=== PATIENT | male | born 1940 | race Caucasian/White ===

== ENCOUNTER 2021-09-25 12:04 | Emergency (ER) | payer OTHER ==
--- OUTSIDE RECORDS SUMMARY | 2021-09-25 12:07 | XMS REPORT | Continuity of Care Document ---
:1940 Author Organization [facility] t Address [address] [place] [address] Dr. Cardenas [address] [place] [id number] Care Team Providers Name Role Phone MARIA ISABEL Primary Care Physician Unavailable Kyle LERNER K Attending Clinician Unavailable Joselyn Unger MD Attending Clinician Joselyn UNGER Attending Clinician Unavailable Mary Wright PTA Attending Clinician Unavailable Avtar Acuña PT Attending Clinician Unavailable Linda MCKINLEY, Desmond Attending Clinician Willy Le MD Attending Clinician Willy LE Attending Clinician Unavailable MARIA EUGENIA SALAZAR MEDICAL Attending Clinician Unavailable Payers Payer Name Policy Type Policy Number Effective Date Expiration Date S ource MEDICARE-PART B 5 [id number] 2020 00:00:00 Problems Condition Condition Condition Status Onset Resolution Last Treating Co mments Source Name Details Category Date Date Treatment Clinician Date No known No known Disease NPI:1 83 active active [id number] problems problems Allergies, Adverse Reactions, Alerts Allergy Allergy Status Severity Reaction(s) Onset Inactive Treating Comm ents Source Name Type Date Date Clinician NO KNOWN Drug Active NPI:183 ALLERGIE Class [id number] S Social History Social Habit Start Date Stop Date Quantity Comments Source Exposure to 2021-07-18 2021-08-17 Not sure NPI:[id number] 1 SARS-CoV-2 00:00:00 11:01:00 (event) Alcohol intake 2021-08-17 2021-08-17 Current drinker NPI:1 [id number] 00:00:00 00:00:00 of alcohol (finding) Tobacco use and 2018-03-11 2018-03-11 Never used NPI:[id number] exposure 00:00:00 00:00:00 Sex [birth year] NPI:[id number] 00:00:00 00:00:00 Smoking Status Start Date Stop Date Source Never smoker Medications Ordered Filled Start Stop Current Ordering Indication Dosage Frequency Signature Comments Components Source Medication Medication Date Date Medication? Clinician (SIG) Name Name CARBIDOPA-L Yes [id number] 1{tbl} TAKE 1 NPI:183 EVODOPA 4-21 TABLET BY [id number] 25-250 mg 00:00: MOUTH 3 per tablet 00 (THREE) TIMES DAILY. CARBIDOPA-L 0 Yes [id number] 1{tbl} TAKE 1 NPI:183 EVODOPA 4-21 TABLET BY [id number] 25-250 mg 00:00: MOUTH 3 per tablet 00 (THREE) TIMES DAILY. CARBIDOPA-L Yes [id number] 1{tbl} TAKE 1 NPI:183 EVODOPA 4-21 TABLET BY [id number] 25-250 mg 00:00: MOUTH 3 per tablet 00 (THREE) TIMES DAILY. CARBIDOPA-L 0 Yes [id number] 1{tbl} TAKE 1 NPI:183 EVODOPA 4-21 TABLET BY [id number] 25-250 mg 00:00: MOUTH 3 per tablet 00 (THREE) TIMES DAILY. omeprazole 2021- No 20mg Take 20 mg NPI:183 (PRILOSEC) 08-17 by mouth [id number] 20 mg 11:18: 00:00 daily. capsule 23 :00 LEVETIRACET 2021-0 Yes [id number] TAKE 1 NPI:183 AM 250 mg 1-18 [place] [id number] tablet 00:00: MOUTH 2 00 TIMES DAILY LEVETIRACET 2021-0 Yes [id number] TAKE 1 NPI:183 AM 250 mg 1-[place] [id number] 81 tablet 00:00: MOUTH 2 00 TIMES DAILY LEVETIRACET 2021-0 Yes [id number] TAKE 1 NPI:183 AM 250 mg 1-[place] [id number] 81 tablet 00:00: MOUTH 2 00 TIMES DAILY LEVETIRACET 2021-0 Yes [id number] TAKE 1 NPI:183 AM 250 mg 1-18 [place] [id number] 81 tablet 00:00: MOUTH 2 00 TIMES DAILY LEVETIRACET 2021-0 Yes [id number] TAKE 1 NPI:183 AM 250 mg 1-18 [place] [id number] tablet 00:00: MOUTH 2 00 TIMES DAILY clopidogreL 2020-05 Yes 75mg Take 1 NPI: 183 75 mg 2-29 tablet by [id number] tablet 00:00: mouth 00 daily. clopidogreL 2020-05 Yes 75mg Take 1 NPI: 183 75 mg 2-29 tablet by [id number] tablet 00:00: mouth 00 daily. clopidogreL 2020-05 Yes 75mg Take 1 NPI: 183 75 mg 2-29 tablet by [id number] tablet 00:00: mouth 00 daily. clopidogreL 2020-05 Yes 75mg Take 1 NPI: 183 75 mg 2-29 tablet by [id number] tablet 00:00: mouth 00 daily. clopidogreL 2020-05 Yes 75mg Take 1 NPI: 183 75 mg 2-29 tablet by [id number] tablet 00:00: mouth 00 daily. CARBIDOPA-L Yes [id number] 1{tbl} TAKE 1 NPI:183 EVODOPA 9-29 TABLET BY [id number] 25-250 mg 00:00: MOUTH 3 per tablet 00 (THREE) TIMES DAILY. CARBIDOPA-L 2021- No [id number] 1{tbl} TAKE 1 NPI:183 EVODOPA 9-29 04-21 TABLET BY [id number] 25-250 mg 00:00: 00:00 MOUTH 3 per tablet 00 :00 (THREE) TIMES DAILY. carbidopa-l 2019-05 Yes [id number] 1{tbl} Take 1 NPI:183 evodopa 2-18 tablet by [id number] (SINEMET) 00:00: mouth 3 25-100 mg 00 (three) tablet times daily. carbidopa-l 2019-05- No [id number] 1{tbl} Take 1 NPI:183 evodopa 2-18 04-21 tablet by [id number] (SINEMET) 00:00: 00:00 mouth 3 25-100 mg 00 :00 (three) tablet times daily. atorvastati 2020-0 Yes 40mg Take 40 mg NPI:183 n 40 mg 8-04 by mouth [id number] tablet 08:39: at 22 bedtime. atorvastati 2020-0 Yes 40mg Take 40 mg NPI:183 n 40 mg 8-04 by mouth [id number] tablet 08:39: at 22 bedtime. atorvastati 2020-0 Yes 40mg Take 40 mg NPI:183 n 40 mg 8-04 by mouth [id number] tablet 08:39: at 22 bedtime. atorvastati 2020-0 Yes 40mg Take 40 mg NPI:183 n 40 mg 8-04 by mouth [id number] tablet 08:39: at 22 bedtime. atorvastati 2020-0 Yes 40mg Take 40 mg NPI:183 n 40 mg 8-04 by mouth [id number] tablet 08:39: at 22 bedtime. hydroCHLORO 2020-0 Yes NPI:18 3 thiazide 6- [id number] 12.5 mg 00:00: tablet 00 escitalopra 2020-0 Yes NPI:18 3 m oxalate 6- [id number] 10 mg 00:00: tablet 00 hydroCHLORO 2020-0 Yes NPI:18 3 thiazide 6- [id number] 12.5 mg 00:00: tablet 00 escitalopra 2020-0 Yes NPI:18 3 m oxalate 6- [id number] 10 mg 00:00: tablet 00 hydroCHLORO 2020-0 Yes NPI:18 3 thiazide 6- [id number] 12.5 mg 00:00: tablet 00 escitalopra 2020-0 Yes NPI:18 3 m oxalate 6- [id number] 10 mg 00:00: tablet 00 hydroCHLORO 2020-0 Yes NPI:18 3 thiazide 6- [id number] 12.5 mg 00:00: tablet 00 escitalopra 2020-0 Yes NPI:18 3 m oxalate 6- [id number] 10 mg 00:00: tablet 00 hydroCHLORO 2020-0 Yes NPI:18 3 thiazide 6- [id number] 12.5 mg 00:00: tablet 00 escitalopra 2020-0 Yes NPI:18 3 m oxalate 6- [id number] 10 mg 00:00: tablet 00 ranitidine 2018-0 Yes NPI:183 150 mg 01-08 [id number] tablet 00:00: 00 ranitidine 2018-0 Yes NPI:183 150 mg 8-22 [id number] tablet 00:00: 00 ranitidine 2018-0 Yes NPI:183 150 mg 8-22 [id number] tablet 00:00: 00 ranitidine 2018-0 Yes NPI:183 150 mg 8- [id number] tablet 00:00: 00 ranitidine 2018-0 Yes NPI:183 150 mg 8-22 [id number] tablet 00:00: 00 losartan 50 2018-0 Yes NPI:18 3 mg tablet - [id number] 00:00: 00 losartan 50 2018-0 Yes NPI:18 3 mg tablet - [id number] 00:00: 00 losartan 50 2018-0 Yes NPI:18 3 mg tablet - [id number] 00:00: 00 losartan 50 2018-0 Yes NPI:18 3 mg tablet - [id number] 00:00: 00 losartan 50 2018-0 Yes NPI:18 3 mg tablet - [id number] 00:00: 00 Immunizations Ordered Immunization Filled Immunization Date Status Commen ts Source Name Name SARS-COV-2 COVID-19 2020-07-13 Completed NPI:1 [id number] MODERNA VACCINE 00:00:00 SARS-COV-2 COVID-19 2020-07-13 Completed NPI:1 [id number] MODERNA VACCINE 00:00:00 SARS-COV-2 COVID-19 2020-07-13 Completed NPI:1 [id number] MODERNA VACCINE 00:00:00 SARS-COV-2 COVID-19 2020-07-13 Completed NPI:1 [id number] MODERNA VACCINE 00:00:00 SARS-COV-2 COVID-19 2020-07-13 Completed NPI:1 [id number] MODERNA VACCINE 00:00:00 SARS-COV-2 COVID-19 2020-06-15 Completed NPI:1 [id number] MODERNA VACCINE 00:00:00 SARS-COV-2 COVID-19 2020-06-15 Completed NPI:1 [id number] MODERNA VACCINE 00:00:00 SARS-COV-2 COVID-19 2020-06-15 Completed NPI:1 [id number] MODERNA VACCINE 00:00:00 SARS-COV-2 COVID-19 2020-06-15 Completed NPI:1 [id number] MODERNA VACCINE 00:00:00 SARS-COV-2 COVID-19 2020-06-15 Completed NPI:1 [id number] MODERNA VACCINE 00:00:00 Vital Signs Vital Name Observation Time Observation Value Comments Source Systolic blood pressure 2021-08-17 16:10:00 147 mm[Hg] Diastolic blood 2021-08-17 16:10:00 91 mm[Hg] NPI:1 [id number] pressure Heart rate 2021-08-17 16:10:00 72 /min NPI:1831 [id number] Body temperature 2021-08-17 16:10:00 36.78 Juliana Body height 2021-08-17 16:10:00 182.9 cm NPI:1831 [id number] Body weight 2021-08-17 16:10:00 112.038 kg NPI:1831 [id number] BMI 2021-08-17 16:10:00 33.50 kg/m2 NPI:1831 [id number] Oxygen saturation in 2021-08-17 16:10:00 96 /min Arterial blood by Pulse oximetry Procedures This patient has no known procedures. Encounters Start End Encounter Admission Attending Care Care Encounter Source Date/Time Date/Time Type Type Clinicians Facility Department ID 2021-10-03 2021-10-03 Outpatient [facility] [id number] NPI:183 16:00:00 16:00:00 [id number] 2021-09-26 2021-09-26 Outpatient [facility] [id number] NPI:183 16:00:00 16:00:00 [id number] 2021-09-19 2021-09-19 Ancillary Pam Wright [facility] 1.2.840 .114 [id number] NPI:183 16:00:00 16:45:00 Visit Power Unger [id number] [place] 4.2.7.2.686 [facility] [id number] [place] [id number] BU[facility] 2021-09-19 2021-09-19 Outpatient [facility] [id number] NPI:183 16:00:00 16:00:00 [id number] 2021-09-19 2021-09-19 [facility] [id number] NPI:183 16:00:00 16:00:00 POWER [id number] 1 2021-09-12 2021-09-12 Ancillary Gia Wright [facility] 1.2.840. [id number] NPI:183 16:00:00 16:45:00 Visit Power Unger Joselyn PATRICIO [id number] [id number] [place] 4.2.7.2.686 [facility] [phone] N[place] [address] [facility] 2021-09-12 2021-09-12 Outpatient R [facility] [id number] NPI:183 16:00:00 16:00:00 [id number] 2021-09-12 2021-09-12 [facility] [id number] NPI:183 16:00:00 16:00:00 POWER [id number] 1 2021-09-07 2021-09-08 Ancillary Trinity Blandon [facility] 1 .2.840.114 [id number] NPI:183 15:15:00 16:17:25 Visit Power Unger Joselyn PATRICIO [id number] [place] [id number] [facility] [id number] [facility] [address] [facility] 2021-09-07 2021-09-07 Outpatient R [facility] [id number] NPI:183 15:15:00 15:15:00 [id number] 2021-09-06 2021-09-06 Refnayana Mckeon [facility] 1.2.840.114 [id number] NPI:183 00:00:00 00:00:00 Yemi PATRICIO [id number] [id number] [place] [id number] [facility] [phone] NAL [address] [facility] 2021-09-04 2021-09-04 Outpatient R [facility] [id number] NPI:183 15:15:00 15:15:00 [id number] 2021-09-04 2021-09-04 Outpatient R CONSUELO [facility] [id number] NPI:183 15:15:00 15:15:00 POWER [id number] 1 2021-08-17 2021-08-17 Office Fish Le [facility] 1.2.840.114 [id number] NPI:183 11:00:00 12:41:58 Visit [facility] [id number] [id number] [place] [id number] [address] [place] [phone] [place] [id number] OFF[facility] 2021-08-17 2021-08-17 Outpatient R FISH LE [facility] [id number] NPI:183 11:00:00 12:41:58 [id number] 2021-05-04 2021-05-04 Outpatient GROUP, MUNA TORRES [id number] [place] 00:00:00 00:00:00 MUNA benson 2019-12-22 2019-12-22 Office Linda [facility] 1.2.840.114 [id number] 08:21:33 09:53:26 Visit Yemi Patricio [id number] [place] 4.2.7.2.686 [facility] [phone] [facility] 092 Building Results This patient has no known results.
--- NOTE | 2021-09-25 14:15 | RAD REPORT ---
EXAM DESCRIPTION: CT - Spine Lumbar Wo Con - 09/25/2021 2:02 pm CLINICAL HISTORY: Radiculopathy. Low back pain, trauma COMPARISON: No comparisons TECHNIQUE: Axial noncontrast CT imaging of the lumbar spine was performed with coronal and sagittal re-formatted images. All CT scans are performed using dose optimization technique as appropriate and may include automated exposure control or mA/KV adjustment according to patient size. FINDINGS: Mild compression fracture is seen affecting the L1 vertebral body. Loss of vertebral body height is estimated at 15%. This is likely acute. Paraspinal tissues are normal in thickness. No paraspinal abscess or hematoma seen. Moderate lower lumbar degenerative changes are present. IMPRESSION: Mild osteoporotic L1 compression fracture is seen. This is likely acute. There is no significant canal compromise evident.
[2021-09-25] MEDS ORDERED: HYDROCODONE/APAP 10/325 TAB ONE (14:16)
--- NOTE | 2021-09-25 14:56 | RAD REPORT ---
EXAM DESCRIPTION: RAD - Ribs Right - 09/25/2021 2:50 pm CLINICAL HISTORY: Pain COMPARISON: Chest Pa And Lat (2 Views) dated 12/08/2018 FINDINGS: Mildly displaced right lateral ninth rib fracture is seen. No pneumothorax.
--- NOTE | 2021-09-25 15:17 | ER ---
Nurse's Notes [facility] Name: Bry Hanson Age: 81 yrs Sex: Male : 1940 Arrival Date: 09/25/2021 Time: 12:05 Bed 27 Private MD: Keegan Fernandez V Diagnosis: Fracture of one rib, right side;Wedge compression fracture of unspecified lumbar vertebra Presentation: 09/25 13:18 Chief complaint: Patient states: Recently I have been having dizzy spells - I see a ld1 neurologist in [place]. Pt states he was feeling better today and went to the park to go walking. Pt got too close to the edge of sidewalk, became dizzy and fell. Denies hitting head or LOC. C/O right sided rib pain \T\ back pain. Coronavirus screen: At this time, the client does not indicate any symptoms associated with coronavirus-19. Ebola Screen: No symptoms or risks identified at this time. Initial Sepsis Screen: Does the patient meet any 2 criteria? No. Patient's initial sepsis screen is negative. Does the patient have a suspected source of infection? No. Patient's initial sepsis screen is negative. Risk Assessment: Do you want to hurt yourself or someone else? Patient reports no desire to harm self or others. Onset of symptoms was September 25, 2021. 13:18 Method Of Arrival: Wheelchair ld1 13:18 Acuity: FABIO 3 ld1 Triage Assessment: 13:22 General: Appears in no apparent distress. comfortable, Behavior is calm, cooperative, ld1 appropriate for age. Pain: Complains of pain in back, diaphragm and right lateral anterior chest Pain does not radiate. Pain currently is 8 out of 10 on a pain scale. Quality of pain is described as throbbing. EENT: No signs and/or symptoms were reported regarding the EENT system. Neuro: Level of Consciousness is awake, alert, obeys commands, Oriented to person, place, time, situation. Neuro: Reports. Cardiovascular: Capillary refill < 3 seconds Patient's skin is warm and dry. Rhythm is sinus rhythm. Respiratory: Airway is patent Respiratory effort is even, unlabored, Respiratory pattern is regular, symmetrical. GI: Abdomen is flat, non-distended. : No signs and/or symptoms were reported regarding the genitourinary system. Derm: No signs and/or symptoms reported regarding the dermatologic system. Musculoskeletal: No signs and/or symptoms reported regarding the musculoskeletal system. Historical: - Allergies: 13:20 No Known Allergies; ld1 - PMHx: 13:20 CVA; Depression; Hyperlipidemia; Hypertension; Seizures; ld1 - PSHx: 13:20 None; ld1 - Immunization history:: Adult Immunizations up to date, Client reports receiving the 2nd dose of the Covid vaccine. - Social history:: Smoking status: Patient denies any tobacco usage or history of. Patient/guardian denies using alcohol. Screenin:23 Abuse screen: Denies threats or abuse. Denies injuries from another. Nutritional ld1 screening: No deficits noted. Tuberculosis screening: No symptoms or risk factors identified. Fall Risk None identified. Assessment: 13:23 Reassessment: Patient appears in no apparent distress at this time. See triage ld1 assessment. 14:42 Reassessment: Patient appears in no apparent distress at this time. Patient is alert, ld1 oriented x 3, equal unlabored respirations, skin warm/dry/pink. Patient states feeling better. Vital Signs: 13:18 BP 146 / 92; Pulse 73; Resp 18; Temp 98.6(TE); Pulse Ox 95% on R/A; Weight 97.52 kg; ld1 Height 6 ft. 0 in. (182.88 cm); Pain 8/10; 14:08 BP 135 / 74; Pulse 72; Resp 18; Pulse Ox 96% on R/A; ld1 15:27 BP 137 / 76; Pulse 79; Resp 18; Pulse Ox 97% on R/A; ld1 13:18 Body Mass Index 29.16 (97.52 kg, 182.88 cm) ld1 ED Course: 12:05 Patient arrived in ED. am2 12:05 Darwin Pedroza MD is Private Physician. am2 12:05 Darwin Pedroza MD is Private Physician. am2 12:05 Keegan Fernandez MD is Private Physician. am2 13:05 [facility]. jr8 13:05 Omega Bonilla MD is Attending Physician. jr8 13:07 Cinda Man RN is Primary Nurse. ld1 13:20 Triage completed. ld1 13:22 Arm band placed on right wrist. ld1 13:23 Patient has correct armband on for positive identification. Placed in gown. Bed in low ld1 position. Call light in reach. Side rails up X2. school bus monitor on. Pulse ox on. NIBP on. Door closed. Noise minimized. Warm blanket given. 13:23 No provider procedures requiring assistance completed. ld1 14:04 CT Lumbar Spine Wo Con In Process Unspecified. EDMS 14:52 XRAY Ribs RIGHT In Process Unspecified. EDMS 15:16 Keegan Fernandez MD is Referral Physician. jr8 15:28 Patient did not have IV access during this emergency room visit. ld1 Administered Medications: 14:16 Drug: [place] (HYDROcodone-acetaminophen) 10 mg-325 mg 1 tabs Route: PO; ld1 Outcome: 15:16 Discharge ordered by . jr8 15:28 Discharged to home via wheelchair, with family. ld1 15:28 Condition: stable 15:28 Discharge instructions given to patient, family, Instructed on discharge instructions, follow up and referral plans. medication usage, Demonstrated understanding of instructions, follow-up care, medications, Prescriptions given X 1. 15:45 Patient left the ED. ld1 Signatures: Dispatcher [employer] EDMS Fady Richards PA PA jr8 Melinda Barbour am2 Cinda Man, ZULEIMA RN ld1
--- NOTE | 2021-09-25 15:17 | EDPHYS ---
Physician Documentation [facility] Name: Bry Hanson Age: 81 yrs Sex: Male : 1940 Arrival Date: 09/25/2021 Time: 12:05 Bed 27 Private MD: Keegan Fernandez V ED Physician Omega Bonilla HPI: 09/25 13:36 This 81 yrs old Male presents to ER via Wheelchair with complaints of Fall Injury, rib jr8 pain, Low Back Pain. 13:36 Onset: The symptoms/episode began/occurred acutely, today. Severity of symptoms: At jr8 their worst the symptoms were moderate, in the emergency department the symptoms are unchanged. The patient has not experienced similar symptoms in the past. The patient has not recently seen a physician. This is a 81-year-old male patient currently being worked up for Parkinson-like symptoms by his neurologist that presented to the emergency room today after sustaining a fall from dizziness. Patient stated that he gets dizzy and off balance quite often which is why he is being worked up. Stated that he fell into a tree hurting his low back and right ribs. Denies hitting his head or neck. No loss conscious at that time. Patient denies any other symptoms other than right rib pain and low back pain at this time.. Historical: - Allergies: 13:20 No Known Allergies; ld1 - PMHx: 13:20 CVA; Depression; Hyperlipidemia; Hypertension; Seizures; ld1 - PSHx: 13:20 None; ld1 - Immunization history:: Adult Immunizations up to date, Client reports receiving the 2nd dose of the Covid vaccine. - Social history:: Smoking status: Patient denies any tobacco usage or history of. Patient/guardian denies using alcohol. ROS: 13:36 Eyes: Negative for injury, pain, redness, and discharge, ENT: Negative for injury, jr8 pain, and discharge, Neck: Negative for injury, pain, and swelling, Cardiovascular: Negative for chest pain, palpitations, and edema, Respiratory: Negative for shortness of breath, cough, wheezing, and pleuritic chest pain, Abdomen/GI: Negative for abdominal pain, nausea, vomiting, diarrhea, and constipation, MS/Extremity: Negative for injury and deformity, Skin: Negative for injury, rash, and discoloration, Neuro: Negative for headache, weakness, numbness, tingling, and seizure. 13:36 Back: Positive for pain at rest, pain with movement, Negative for decreased range of motion, radiated pain. Exam: 13:36 Constitutional: This is a well developed, well nourished patient who is awake, alert, jr8 and in no acute distress. Head/Face: Normocephalic, atraumatic. Eyes: Pupils equal round and reactive to light, extra-ocular motions intact. Lids and lashes normal. Conjunctiva and sclera are non-icteric and not injected. Cornea within normal limits. Periorbital areas with no swelling, redness, or edema. ENT: Nares patent. No nasal discharge, no septal abnormalities noted. Tympanic membranes are normal and external auditory canals are clear. Oropharynx with no redness, swelling, or masses, exudates, or evidence of obstruction, uvula midline. Mucous membranes moist. Neck: Trachea midline, no thyromegaly or masses palpated, and no cervical lymphadenopathy. Supple, full range of motion without nuchal rigidity, or vertebral point tenderness. No Meningismus. Cardiovascular: Regular rate and rhythm with a normal S1 and S2. No gallops, murmurs, or rubs. Normal PMI, no JVD. No pulse deficits. Respiratory: Lungs have equal breath sounds bilaterally, clear to auscultation and percussion. No rales, rhonchi or wheezes noted. No increased work of breathing, no retractions or nasal flaring. Abdomen/GI: Soft, non-tender, with normal bowel sounds. No distension or tympany. No guarding or rebound. No evidence of tenderness throughout. Skin: Warm, dry with normal turgor. Normal color with no rashes, no lesions, and no evidence of cellulitis. MS/ Extremity: Pulses equal, no cyanosis. Neurovascular intact. Full, normal range of motion. Neuro: Awake and alert, GCS 15, oriented to person, place, time, and situation. Cranial nerves II-XII grossly intact. Motor strength 5/5 in all extremities. Sensory grossly intact. 13:36 Chest/axilla: Inspection: normal, Palpation: tenderness, that is moderate, of the right lateral anterior chest, that totally reproduces the patient's complaints. 13:36 Back: pain, that is mild, of the lumbar area, ROM is painful, normal spinal alignment noted, CVA tenderness, is absent, vertebral tenderness, is appreciated at L3 and L4. Vital Signs: 13:18 BP 146 / 92; Pulse 73; Resp 18; Temp 98.6(TE); Pulse Ox 95% on R/A; Weight 97.52 kg; ld1 Height 6 ft. 0 in. (182.88 cm); Pain 8/10; 14:08 BP 135 / 74; Pulse 72; Resp 18; Pulse Ox 96% on R/A; ld1 15:27 BP 137 / 76; Pulse 79; Resp 18; Pulse Ox 97% on R/A; ld1 13:18 Body Mass Index 29.16 (97.52 kg, 182.88 cm) ld1 MDM: 13:10 Patient medically screened. duane 15:13 Data reviewed: vital signs, nurses notes, radiologic studies, CT scan, plain films. jr8 Data interpreted: Pulse oximetry: on room air is 96 %. Interpretation: normal. Counseling: I had a detailed discussion with the patient and/or guardian regarding: the historical points, exam findings, and any diagnostic results supporting the discharge/admit diagnosis, radiology results, the need for outpatient follow up, a orthopedic surgeon, to return to the emergency department if symptoms worsen or persist or if there are any questions or concerns that arise at home. ED course: Discussed with patient that he has a 15% compression fracture with osteoporosis signs. Recommended bone scan from his PCP to further look into this as he has been having frequent falls secondary to his neurologic condition. Also explained to him that he had a mild rib fracture of the ninth rib. Pain management can control this at this time and that he just needs to be extra careful for the time being. If you worsen or have any other symptoms to come back for further evaluation. Patient good with this at this time and will refer him to Ortho spine.. 09/25 13:23 Order name: XRAY Ribs RIGHT; Complete Time: 15:04 jr8 09/25 13:23 Order name: CT Lumbar Spine Wo Con; Complete Time: 14:31 jr8 Administered Medications: 14:16 Drug: [place] (HYDROcodone-acetaminophen) 10 mg-325 mg 1 tabs Route: PO; ld1 Disposition Summary: 09/25/21 15:16 Discharge Ordered Location: Home jr8 Problem: new jr8 Symptoms: have improved jr8 Condition: Stable jr8 Diagnosis - Fracture of one rib, right side jr8 - Wedge compression fracture of unspecified lumbar vertebra jr8 Followup: jr8 - With: Keegan Fernandez MD - When: 5 - 6 days - Reason: Recheck today's complaints, Continuance of care, Re-evaluation by your physician Discharge Instructions: - Discharge Summary Sheet jr8 - Spinal Compression Fracture jr8 - Rib Fracture jr8 Forms: - Medication Reconciliation Form jr8 - Thank You Letter jr8 - Antibiotic Education jr8 - Prescription Opioid Use jr8 Prescriptions: - Tylenol-Codeine #3 300 mg-30 mg Oral - take 2 tablet by ORAL route every 8 hours; 24 tablet; Refills: 0, Product jr8 Selection Permitted Signatures: Dispatcher [employer] EDMS Omega Bonilla MD MD cha Roszak, Josh, PA PA jr8 Cinda Man, RN RN ld1
[2021-09-25 17:19] VITALS: TEMP 98.6
[2021-09-25 17:22] VITALS: BP 137/76; O2SAT 97
== END 2021-09-25 15:45 | disposition home or self-care (01) ==
LOC: ER 12:04
DX: S32.000A Wedge compression fracture of unspecified lumbar vertebra, initial encounter for closed fracture (principal); S22.31XA Fracture of one rib, right side, initial encounter for closed fracture; W18.39XA Other fall on same level, initial encounter; I10 Essential (primary) hypertension; E78.5 Hyperlipidemia, unspecified; Z86.73 Personal history of transient ischemic attack (TIA), and cerebral infarction without residual deficits
CPT/HCPCS: 72131; 99284

== ENCOUNTER 2021-11-21 07:01 | Emergency (ER) | payer OTHER ==
--- NOTE | 2021-11-21 07:20 | ER ---
Nurse's Notes [facility] Name: Bry Hanson Age: 81 yrs Sex: Male : 1940 Arrival Date: 11/21/2021 Time: 07:03 Bed 7 Private MD: Diagnosis: Cellulitis of buttock Presentation: 11/21 07:05 Chief complaint: Patient states: redness pain to right fbuttick began x 2 weeks ago kl pain increasing. Coronavirus screen: Vaccine status: Patient reports receiving the 2nd dose of the covid vaccine. Ebola Screen: Patient negative for fever greater than or equal to 101.5 degrees Fahrenheit, and additional compatible Ebola Virus Disease symptoms. Initial Sepsis Screen: Does the patient meet any 2 criteria? No. Patient's initial sepsis screen is negative. Does the patient have a suspected source of infection? Yes: Skin breakdown/wound. Risk Assessment: Do you want to hurt yourself or someone else? Patient reports no desire to harm self or others. Onset of symptoms was November 06, 2021. 07:05 Method Of Arrival: EMS: [facility] 07:05 Acuity: FABIO 3 kl Triage Assessment: 07:08 General: Appears distressed, uncomfortable, well developed, well nourished, Behavior is kl calm, cooperative, appropriate for age. Pain: Complains of pain in coccyx and right lower back Pain currently is 8 out of 10 on a pain scale. EENT: No deficits noted. No signs and/or symptoms were reported regarding the EENT system. Neuro: No deficits noted. Cardiovascular: No deficits noted. Denies chest pain. Respiratory: No deficits noted. Airway is patent Trachea midline Respiratory effort is even, unlabored, Respiratory pattern is regular, symmetrical. GI: No deficits noted. No signs and/or symptoms were reported involving the gastrointestinal system. : No deficits noted. No signs and/or symptoms were reported regarding the genitourinary system. Derm: Skin temperature is hot redness to right buttock. Historical: - Allergies: 07:19 No Known Allergies; jl7 - Home Meds: 07:07 levadopa [Active]; BP med [Active]; kl - PMHx: 07:07 CVA; Depression; Hyperlipidemia; Hypertension; Seizures; parkinsons; kl - Immunization history:: Adult Immunizations up to date. - Social history:: Smoking status: Patient denies any tobacco usage or history of. Screenin:30 Abuse screen: Denies threats or abuse. Denies injuries from another. Nutritional jl7 screening: No deficits noted. Tuberculosis screening: No symptoms or risk factors identified. Fall Risk Ambulatory Aid- Furniture (30 pts.). Gait- Weak (10 pts.). Mental Status- Oriented to own ability (0 pts). Total Estes Fall Scale indicates Low Risk Score (25-44 pts). Fall prevention measures have been instituted. Side Rails Up X 2 Frequent Obs/Assesments occuring. Assessment: 07:20 General: Appears in no apparent distress. uncomfortable, Behavior is calm, cooperative, jl7 appropriate for age. Pain: Complains of pain in right gluteus olimpia Pain currently is 8 out of 10 on a pain scale. Neuro: Level of Consciousness is awake, alert, obeys commands, Oriented to person, place, time, situation. Cardiovascular: Patient's skin is warm and dry. Respiratory: Airway is patent Respiratory effort is even, unlabored, Respiratory pattern is regular, symmetrical. Derm: Skin is pink, warm \T\ dry. Abscess located on right gluteus olimpia is quarter sized, is red. Vital Signs: 07:05 BP 149 / 81; Pulse 78; Resp 20; Temp 98.3; Pulse Ox 97% on R/A; Pain 8/10; kl 07:30 BP 141 / 88; Pulse 75; Resp 15; Pulse Ox 97% ; jl7 ED Course: 07:03 Patient arrived in ED. eb 07:03 Noé Rojas DO is Attending Physician. ms3 07:07 Triage completed. kl 07:19 Ayush Melgar, ZULEIMA is Primary Nurse. jl7 07:30 Patient has correct armband on for positive identification. Bed in low position. Call jl7 light in reach. Side rails up X 1. 07:46 No provider procedures requiring assistance completed. Patient did not have IV access jl7 during this emergency room visit. 07:47 Arm band placed on right wrist. jl7 Administered Medications: 07:30 Drug: Doxycycline 100 mg Route: PO; jl7 07:43 Follow up: Response: Medication administered at discharge. jl7 07:30 Drug: KeFLEX (cephalexin) 500 mg Route: PO; jl7 07:43 Follow up: Response: Medication administered at discharge. jl7 Medication: 07:30 VIS not applicable for this client. jl7 Outcome: 07:19 Discharge ordered by . ms3 07:46 Discharged to home via wheelchair, with family. jl7 07:46 Condition: stable 07:46 Discharge instructions given to patient, Instructed on discharge instructions, follow up and referral plans. medication usage, Demonstrated understanding of instructions, follow-up care, medications, Prescriptions given X 2. 07:47 Patient left the ED. jl7 Signatures: Josey Stringer, RN Ayush Ortiz RN RN jl7 Ursula Harvey Marcus, DO ms3
[2021-11-21] MEDS ORDERED: DOXYCYCLINE 100 MG CAP PO ONE (07:36)
[2021-11-21] MEDS ORDERED: CEPHALEXIN 250 MG CAP ONE (07:36)
--- NOTE | 2021-11-21 07:48 | EDPHYS ---
Physician Documentation [facility] Name: Bry Hanson Age: 81 yrs Sex: Male : 1940 Arrival Date: 11/21/2021 Time: 07:03 Bed 7 Private MD: ED Physician Noé Rojas HPI: 11/21 07:21 This 81 yrs old Male presents to ER via EMS with complaints of Abscess. ms3 07:21 The patient presents with cellulitis of the buttocks. Description: The affected area is ms3 large, confluent, localized, erythematous, hot, swollen, tense, warm. Onset: The symptoms/episode began/occurred gradually, 2 week(s) ago. Possible cause(s): unknown. Associated signs and symptoms: Pertinent negatives: drainage, fever, nausea. Modifying factors: the symptoms are alleviated by nothing, the symptoms are aggravated by pressure. Severity of symptoms: At their worst the symptoms were moderate, in the emergency department the symptoms are unchanged. Historical: - Allergies: 07:19 No Known Allergies; jl7 - Home Meds: 07:07 levadopa [Active]; BP med [Active]; kl - PMHx: 07:07 CVA; Depression; Hyperlipidemia; Hypertension; Seizures; parkinsons; kl - Immunization history:: Adult Immunizations up to date. - Social history:: Smoking status: Patient denies any tobacco usage or history of. ROS: 07:21 Constitutional: Negative for fever, and chills. Neck: Negative for injury, pain, and ms3 swelling, Cardiovascular: Negative for chest pain, and palpitations. Respiratory: Negative for shortness of breath, cough, wheezing, and pleuritic chest pain, Abdomen/GI: Negative for abdominal pain, nausea, vomiting, diarrhea, and constipation, MS/Extremity: Negative for injury and deformity. 07:21 Skin: Positive for cellulitis. 07:21 All other systems are negative. Exam: 07:21 Constitutional: This is a well developed, well nourished patient who is awake, alert, ms3 and in no acute distress. Head/Face: Normocephalic, atraumatic. Chest/axilla: Normal chest wall appearance and motion. Nontender with no deformity. Cardiovascular: Regular rate and rhythm with a normal S1 and S2. No gallops, murmurs, or rubs. Normal PMI, no JVD. No pulse deficits. Respiratory: Lungs have equal breath sounds bilaterally, clear to auscultation and percussion. No rales, rhonchi or wheezes noted. No increased work of breathing, no retractions or nasal flaring. Abdomen/GI: Soft, non-tender, with normal bowel sounds. No distension or tympany. No guarding or rebound. No evidence of tenderness throughout. MS/ Extremity: Pulses equal, no cyanosis. Neurovascular intact. Full, normal range of motion. Psych: Awake, alert, with orientation to person, place and time. Behavior, mood, and affect are within normal limits. 07:21 Skin: cellulitis, that is moderate, on the buttocks. Vital Signs: 07:05 BP 149 / 81; Pulse 78; Resp 20; Temp 98.3; Pulse Ox 97% on R/A; Pain 8/10; kl 07:30 BP 141 / 88; Pulse 75; Resp 15; Pulse Ox 97% ; jl7 MDM: 07:13 Patient medically screened. ms3 07:21 Differential diagnosis: abscess, cellulitis. Data reviewed: vital signs, and as a ms3 result, I will discharge patient. Counseling: I had a detailed discussion with the patient and/or guardian regarding: the historical points, exam findings, and any diagnostic results supporting the discharge/admit diagnosis, the need for outpatient follow up, to return to the emergency department if symptoms worsen or persist or if there are any questions or concerns that arise at home. ED course: Bedside US does not show fluid collection at this time. Discussed Rx for abx with patient. Patient understands/ agrees with plan. All questions answered. Return precautions discussed to include worsening symptoms, or any other concerns.. Administered Medications: 07:30 Drug: Doxycycline 100 mg Route: PO; jl7 07:43 Follow up: Response: Medication administered at discharge. jl7 07:30 Drug: KeFLEX (cephalexin) 500 mg Route: PO; jl7 07:43 Follow up: Response: Medication administered at discharge. jl7 Disposition Summary: 11/21/21 07:19 Discharge Ordered Location: Home ms3 Condition: Stable ms3 Diagnosis - Cellulitis of buttock ms3 Followup: ms3 - With: Private Physician - When: 2 - 3 days - Reason: Recheck today's complaints, Re-evaluation by your physician Discharge Instructions: - Discharge Summary Sheet ms3 - Cellulitis, Adult ms3 Forms: - Medication Reconciliation Form ms3 - Thank You Letter ms3 - Antibiotic Education ms3 - Prescription Opioid Use ms3 Prescriptions: - Doxycycline Hyclate 100 mg Oral Tablet - take 1 tablet by ORAL route every 12 hours; 20 tablet; Refills: 0, Product ms3 Selection Permitted - Cephalexin 500 mg Oral Capsule - take 1 capsule by ORAL route every 6 hours for 10 days; 40 capsule; Refills: 0, ms3 Product Selection Permitted Signatures: Josey Stringer, RN Ayush Ortiz RN RN jl7 Noé Rojas DO DO ms3
[2021-11-21 08:06] VITALS: TEMP 98.3; O2SAT 97
[2021-11-21 08:08] VITALS: BP 141/88
== END 2021-11-21 07:47 | disposition home or self-care (01) ==
LOC: ER 07:01
DX: L03.317 Cellulitis of buttock (principal); I10 Essential (primary) hypertension; G20 Parkinson's disease
CPT/HCPCS: 99283

== ENCOUNTER 2021-11-22 10:00 | Inpatient (IN) | payer OTHER ==
[2021-11-22] MEDS ORDERED: HYDROMORPHONE HCL 1 MG/ML INJ IV PRN ×2 (14:38→18:16)
[2021-11-22] MEDS ORDERED: DIPHENHYDRAMINE 25 MG TAB/CAP PO PRN (15:00)
[2021-11-22] MEDS ORDERED: LOPERAMIDE HCL 2 MG CAPSULE PO PRN (15:00)
[2021-11-22] MEDS ORDERED: ONDANSETRON 4 MG (ODT) TAB PO PRN (15:00)
[2021-11-22] MEDS ORDERED: POLYETHYL GLY 3350 17 GM/DOSE PO PRN (15:00)
[2021-11-22] MEDS ORDERED: ONDANSETRON 4 MG/2 ML VIAL IV PRN (15:00)
[2021-11-22] MEDS ORDERED: ACETAMINOPHEN 325 MG TABLET PO PRN (15:00)
[2021-11-22] MEDS ORDERED: PNEUMOCOCCAL VACCINE 0.5 ML IMVAC ONE (15:00)
--- NOTE | 2021-11-22 15:59 | RAD REPORT ---
EXAM DESCRIPTION: RAD - Chest Pa And Lat (2 Views) - 11/22/2021 3:53 pm CLINICAL HISTORY: intractable back pain Chest pain. COMPARISON: Chest Pa And Lat (2 Views) dated 12/08/2018; Chest Single View dated 02/07/2018; Chest Sin gle View dated 11/26/2016; CHEST PA AND LAT 2 VIEW dated 06/02/2015 FINDINGS: The lungs are clear. The heart is upper limit of normal in size. No displaced fractures. M ild thoracic degenerative changes. IMPRESSION: No acute or concerning finding suspected.
--- NOTE | 2021-11-22 16:09 | RAD REPORT ---
EXAM DESCRIPTION: MRI - Lumbar Spine Wo Con- 11/22/2021 3:43 pm CLINICAL HISTORY: back pain Back pain, radiculopathy COMPARISON: Spine Lumbar Wo Con dated 09/25/2021 FINDINGS: Mild anterior wedge compression fracture affects the L1 vertebral body. There is elevated T2/IR signal indicating subacute time frame. No canal compromise. No aggressive marrow pattern is observed. The conus medullaris terminates at a normal level. No thickening of the cauda equina or clumping of n erve roots seen. L1-2 level: Mild facet hypertrophy. L2-3 level: Moderate posterior disc bulge with moderate facet and ligamentum flavum hypertrophy. Mode rate central canal narrowing. L3-4 level: Mild to moderate posterior disc bulge with moderate facet and ligamentum flavum hypertrop hy. Moderate central canal stenosis mild narrowing of both exit foramina. L4-5 level: Mild posterior disc bulge is seen asymmetric to the left. Moderate facet and ligamentum f lavum hypertrophy is seen. Narrowing of the lateral recesses bilaterally is noted. L5-S1 level: Mild posterior disc bulge is seen with [id number] facet hypertrophy. No significan t central canal stenosis. No significant exit foraminal stenosis. IMPRESSION: Subacute mild anterior wedge compression fracture of L1. Vertebral body height loss is e stimated at 15-20%. Moderate lower lumbar degenerative spondylosis as detailed.
[2021-11-22 16:22] LABS: Absolute Lymphocytes (CBC) 1.4 K/uL (0.7-4.9); Hematocrit 42.9 % (39.6-49.0); Lymphocytes % 13.3 % (15.3-44.8); MCV 91.9 fL (80-100); RBC Red Blood Cell Count 4.66 M/uL (4.33-5.43)
[2021-11-22 16:27] VITALS: BMI 32.9
[2021-11-22 16:30] LABS: Protime INR 1.19
[2021-11-22 16:50] LABS: Albumin 3.3 g/dL (3.4-5.0); Bilirubin Direct 0.2 mg/dL (0-0.2); Bilirubin Total 0.6 mg/dL (0.2-1.0); Magnesium 2.4 mg/dL (1.8-2.4); Phosphorus 3.1 mg/dL (2.5-4.9); Potassium 3.8 mmol/L (3.5-5.1); Protein, Total 7.1 g/dL (6.4-8.2); Thyroid Stimulating Hormone 1.61 uIU/mL (0.360-3.740)
[2021-11-22] MEDS: NACHLORIDE 0.45% 1,000 ML IV SCH (16:54)
[2021-11-22] MEDS: ENOXAPARIN 40 MG/0.4 ML SQ SCH (16:54)
[2021-11-22] MEDS ORDERED: POTASSIUM CL SA 10 MEQ TAB PO ONE (18:00)
[2021-11-22] MEDS: VANCOMYCIN 2 GM in NA CHLORIDE 0.9% 500 ML IVPB SCH (21:12)
--- NOTE | 2021-11-23 06:27 | P.HP ---
Certification for Inpatient Patient admitted to: Inpatient With expected LOS: >2 Midnights Practitioner: I am a practitioner with admitting privileges, knowledge of patient current condition, hospital course, and medical plan of care. Services: Services provided to patient in accordance with Admission requirements found in Title 42 Section 412.3 of the Code of Federal Regulations Patient History Date of Service: 11/22/21 Reason for admission: BACK PAIN, LARGE GLUTEAL ABSCESS History of Present Illness: DAUGHTER CAME TO OFFICE TELLING US THAT HE IS IN A LOT OF PAIN AND CAN'T GET OUT OF BED. THIS IS AFTER HE FELL AT DR. PALMER'S OFFICE. I SUSPECETD LUMBAR FRACTURE AND ADMITTED HIM. THERE IS A LARGE ARE OF PAIN AND REDNESS IN GLUTEAL REGION THAT HE OR SHE WERE NOT AWARE OF . HE DOES NOT TAKE SHOWER DAILY. Allergies No Known Allergies Allergy (Verified 11/22/21 14:38) Home medications list reviewed: Yes Home Medications: Atorvastatin Calcium [Lipitor] 40 mg PO BEDTIME 07/20/11 Omeprazole Magnesium [Prilosec Otc] 20 mg PO DAILY 07/20/11 Valsartan [Diovan] 160 mg PO DAILY 07/20/11 Clopidogrel Bisulfate [Plavix*] 75 mg PO DAILY #30 tablet 07/14/13 Losartan Potassium [Cozaar*] 50 mg PO DAILY 07/14/13 Carbidopa/Levodopa 25-250 [Sinemet 25-250*] 25 - 250 mg PO TID 11/22/21 Cephalexin [Keflex*] 500 mg PO Q6HR 11/22/21 Doxycycline Hyclate 100 mg PO BID 11/22/21 Levetiracetam [Keppra] 500 mg PO BID 11/22/21 Venlafaxine HCl [Venlafaxine HCl ER] 75 mg PO DAILY 11/22/21 - Past Medical/Surgical History Has patient received pneumonia vaccine in the past: Yes Diabetic: No -: htn -: seizures -: Parkinsons -: depression -: anxiety -: back fx -: concussions -: shoulder sx -: appendectomy -: foot sx - Social History Smoking Status: Never smoker Alcohol use: Yes CD- Drugs: No Caffeine use: Yes Place of Residence: Home Review of Systems 10-point ROS is otherwise unremarkable General: Weakness Musculoskeletal: As per HPI Physical Examination - Vital Signs Temperature: 97.1 F Blood Pressure: 146/62 Pulse: 75 Respirations: 17 Pulse Ox (%): 97 - Physical Exam General: Oriented x3, Severe distress HEENT: Atraumatic, PERRLA, Mucous membr. moist/pink, EOMI, Sclerae nonicteric Neck: Supple, 2+ carotid pulse no bruit, No LAD, Without JVD or thyroid abnormality Respiratory: Clear to auscultation bilaterally, Normal air movement Cardiovascular: Regular rate/rhythm, Normal S1 S2 Gastrointestinal: Normal bowel sounds, No tenderness Musculoskeletal: No tenderness Integumentary: No rashes, Other (LARGE GLUTEAL ABSCESS- MRSA CHARACTERS.) Neurological: Normal gait, Normal speech, Normal strength at 5/5 x4 extr, Normal tone, Normal affect Lymphatics: No axilla or inguinal lymphadenopathy - Studies Laboratory Data (last 24 hrs) 11/22/21 16:07: Sodium 140, Potassium 3.8, BUN 15, Creatinine 1.01, Glucose 98, Phosphorus 3.1, Magnesium 2.4, Total Bilirubin 0.6, AST 22, ALT 26, Alkaline Phosphatase 76 11/22/21 16:07: PT 13.1 H, INR 1.19, APTT 27.9 11/22/21 16:07: WBC 10.4, Hgb 14.4, Hct 42.9, Plt Count 232 Assessment and Plan - Problems (Diagnosis) (1) Abscess, gluteal, right Current Visit: Yes Status: Acute Plan: CONSULT DR. BELLA. IV VANCOMYCIN SURGERY IN AM. I COULD NOT DO THIS NOTE YESTERDAY [employer] DID NOT WORK. (2) Fx lumbar vertebra-closed Current Visit: Yes Status: Acute Plan: MEDICAL MANAGEMENT . HE CAN DO KYKPHOPLASTY BUT WITH A LARGE MRSA ABSCESS I WILL AVOID IT TO PREVENT SPINE INFECTION. Qualifiers: Encounter type: initial encounter Lumbar vertebra fracture level: L1 (3) Parkinson disease Current Visit: Yes Status: Acute - Advance Directives Does patient have a Living Will: No Does patient have a Durable POA for Healthcare: Yes
[2021-11-23] MEDS ORDERED: Ringers Lactate 1,000 ML IV ONE (06:48)
[2021-11-23 06:56] LABS: Absolute Lymphocytes (CBC) 0.9 K/uL (0.7-4.9); Lymphocytes % 10.6 % (15.3-44.8); MCV 91.7 fL (80-100); RBC Red Blood Cell Count 4.58 M/uL (4.33-5.43)
[2021-11-23] MEDS ORDERED: ONDANSETRON 4 MG/2 ML VIAL ONE (07:16)
[2021-11-23] MEDS ORDERED: propofoL 200 MG/20 ML VIAL IV ONE (07:16)
[2021-11-23] MEDS ORDERED: BUPIVACAINE 0.5% Inj,MDV 50 mL VIAL ONE (07:18)
[2021-11-23] MEDS ORDERED: CEFAZOLIN SODIUM 1 GM/VIAL ONE (07:23)
--- NOTE | 2021-11-23 07:26 | P.CNS ---
Date of Consult: 11/23/21 Reason for consult: Right buttock abscess History of present illness: 81-year-old gentleman presents with red painful, tender area on the right buttock for 2 weeks. Patient denies fever or chills. Patient states there is minimal discharge. Patient also has lower back pain. Patient had an MRI which shows a wedge fracture. Patient needs kyphoplasty; however, that we will have to wait until after the infection is taken care of. Patient denies sore throat, runny nose, headaches, dizziness, cough or chest pain. Review of systems: Otherwise unremarkable Past medical history: Hypertension, Parkinson's, depression Past surgical history: Shoulder surgery, appendectomy, foot surgery Allergies: None Social history: Does not smoke, drinks occasionally Family history: Noncontributory Vital signs: Stable, afebrile Physical exam: Awake alert oriented x3 Head and neck exam: No masses Chest: Clear Heart: S1-S2 Abdomen: Soft Extremity: Neurovascular intact, nontender Neuro: Nonfocal Right buttock: Approximately 10 x 15 cm diameter area of erythema, warmth, induration with central necrosis and fluctuance. There is minimal purulence oozing from the center. Diagnostic data: White count is normal with a left shift. MRI of the lumbar spine reviewed. Assessment: Abscess and cellulitis right buttocks in a patient with lumbar fracture Plan/recommendation: We will proceed with incision, drainage and debridement of the right buttock abscess. Patient understands risk benefits alternatives and agrees to procedure. Patient's back issue will be addressed after the infection is under control. CC: Dr. Fernandez's office
[2021-11-23] MEDS ORDERED: LIDOCAINE 2% MPF 5 ML VIAL ONE (07:40)
[2021-11-23] MEDS ORDERED: FENTANYL CITR 100 MCG/2 ML ONE (07:42)
[2021-11-23] MEDS ORDERED: EPHEDRINE SULF 50 MG/ML VIAL ONE (07:58)
--- NOTE | 2021-11-23 08:47 | P.OP ---
Date of Service: 11/23/21 Preop diagnosis: Abscess and cellulitis right buttocks Postop diagnosis: Same Procedure performed: Incision, drainage and debridement right buttock abscess Surgeon: Dain Menchaca MD Line Construction Superintendent: Emanuel ROSA Estimated blood loss: Minimal Specimen: Culture and sensitivity of the pus, necrotic tissue Findings: As above Anesthesia: General Complications: None Drains: None Fluids and blood products: Nonapplicable Disposition: Recovery room Operative note: Patient brought to the OR and placed in supine position. General anesthesia begun. Patient placed in left lateral position. Patient prepped and draped in the usual sterile fashion. Marcaine 0.5% infiltrated locally for postop pain control. 15 blade used to make approximately a 6 x 3 cm incision just around the necrotic area that was present. Subcutaneous tissue divided, pus encountered and cultures done. All the necrotic tissue was debrided down into the deep subcutaneous tissue. Patient had the beginnings of an early necrotizing infection. After all necrotic tissue was debrided, wound was irrigated and bleeding controlled with cautery. Then wet-to-dry normal saline dressing change applied. Patient awakened. Patient tolerated the procedure in stable condition taken to recovery room in good general condition. CC: Dr. Fernandez's office
[2021-11-23] MEDS ORDERED: CHLORHEXIDINE GLUCO 4% 120 ML TOP SCH (09:00)
[2021-11-23] MEDS: MUPIROCIN 2% OINT 22GM TUBE TOP SCH ×2 (09:00→21:00)
[2021-11-23] MEDS: ENOXAPARIN 40 MG/0.4 ML SQ SCH (09:00)
[2021-11-23] MEDS: HYDROMORPHONE HCL 1 MG/ML INJ ONE ×2 (09:20→09:28)
[2021-11-23] MEDS ORDERED: KETOROLAC 30 MG/ML INJ ONE (09:28)
[2021-11-23 09:57] LABS: Magnesium 2.2 mg/dL (1.8-2.4); Potassium 3.8 mmol/L (3.5-5.1)
[2021-11-23] MEDS ORDERED: POTASSIUM CL SA 10 MEQ TAB PO ONE (10:45)
--- NOTE | 2021-11-23 13:54 | EKG ---
Test Date: 2021-11-22 Test Time: 14:33:05 Seo Professional: JED MEASUREMENT RESULTS: Intervals: Rate: 68 AL: 188 QRSD: 78 QT: 396 QTc: 421 [place]: P: -53 AL: 188 QRS: 44 T: 31 INTERPRETIVE STATEMENTS: Unusual P axis, possible ectopic atrial rhythm Abnormal ECG Compared to ECG 02/07/2018 09:25:35 Sinus rhythm no longer present Ventricular premature complex(es) no longer present Electronically Signed On 11-23-21 13:51:13 CDT by Ti Copeland
[2021-11-23] MEDS: VANCOMYCIN 2 GM in NA CHLORIDE 0.9% 500 ML IVPB SCH (14:50)
[2021-11-24] MEDS: NACHLORIDE 0.45% 1,000 ML IV SCH (00:20)
[2021-11-24 06:20] LABS: Magnesium 2.4 mg/dL (1.8-2.4)
--- NOTE | 2021-11-24 06:49 | P.PN ---
Subjective Date of Service: 11/23/21 Chief Complaint: BACK PAIN, LARGE GLUTEAL ABSCESS GOING FOR SURGERY. DR. BELLA , I CALLED LATER, HE FOUND A LARGE ABSCESS THAT WAS DRAINED. Physical Examination - Vital Signs Temperature: 97.5 F Blood Pressure: 163/74 Pulse: 63 Respirations: 18 Pulse Ox (%): 97 - Physical Exam General: Oriented x3, Moderate distress HEENT: Atraumatic, PERRLA, EOMI Neck: Supple, JVD not distended Respiratory: Clear to auscultation bilaterally, Normal air movement Cardiovascular: Regular rate/rhythm, Normal S1 S2 Gastrointestinal: Normal bowel sounds, No tenderness Musculoskeletal: No tenderness Integumentary: No rashes Neurological: Normal speech, Normal tone, Normal affect Lymphatics: No axilla or inguinal lymphadenopathy - Studies Laboratory Data (last 24 hrs) 11/24/21 05:40: Sodium 141, Potassium 4.0, BUN 12, Creatinine 0.89, Glucose 97, Magnesium 2.4 11/23/21 09:23: Sodium 139, Potassium 3.8, BUN 12, Creatinine 1.01, Glucose 110 H, Magnesium 2.2 11/23/21 06:46: WBC 8.9 D, Hgb 14.3, Hct 42.0, Plt Count 187 Medications List Reviewed: Yes Assessment And Plan - Current Problems (Diagnosis) (1) Abscess, gluteal, right Current Visit: Yes Status: Acute Plan: CONSULT DR. BELLA. IV VANCOMYCIN SURGERY IN AM. I COULD NOT DO THIS NOTE YESTERDAY [employer] DID NOT WORK. TALKED TO DAUGHTER TO EXPLAIN IV ABX FOR 14 DAYS AT [place]. WOUND CARE BY DR. BELLA. (2) Fx lumbar vertebra-closed Current Visit: Yes Status: Acute Plan: MEDICAL MANAGEMENT . HE CAN DO KYKPHOPLASTY BUT WITH A LARGE MRSA ABSCESS I WILL AVOID IT TO PREVENT SPINE INFECTION. Qualifiers: Encounter type: initial encounter Lumbar vertebra fracture level: L1 (3) Parkinson disease Current Visit: Yes Status: Acute
[2021-11-24 06:51] LABS: Absolute Lymphocytes (CBC) 1.4 K/uL (0.7-4.9); Hematocrit 44.5 % (39.6-49.0); Lymphocytes % 21.2 % (15.3-44.8); MCV 92.2 fL (80-100); MPV 8.5 fL (7.6-11.3); RBC Red Blood Cell Count 4.83 M/uL (4.33-5.43)
[2021-11-24] MEDS: MUPIROCIN 2% OINT 22GM TUBE TOP SCH ×2 (09:00→21:00)
[2021-11-24] MEDS: VANCOMYCIN 2 GM in NA CHLORIDE 0.9% 500 ML IVPB SCH (09:08)
[2021-11-24] MEDS: ENOXAPARIN 40 MG/0.4 ML SQ SCH (09:09)
--- NOTE | 2021-11-24 13:48 | P.PN ---
Subjective Date of Service: 11/24/21 Chief Complaint: BACK PAIN, LARGE GLUTEAL ABSCESS Subjective: Improving GOING FOR SURGERY. DR. BELLA , I CALLED LATER, HE FOUND A LARGE ABSCESS THAT WAS DRAINED. Physical Examination - Vital Signs Temperature: 98.1 F Blood Pressure: 159/92 Pulse: 70 Respirations: 18 Pulse Ox (%): 96 - Physical Exam General: Oriented x3, Moderate distress, Obese HEENT: Atraumatic, PERRLA, EOMI Neck: Supple, JVD not distended Respiratory: Clear to auscultation bilaterally, Normal air movement Cardiovascular: Regular rate/rhythm, Normal S1 S2 Gastrointestinal: Normal bowel sounds, No tenderness Musculoskeletal: No tenderness Integumentary: No rashes Neurological: Normal speech, Normal tone, Normal affect Lymphatics: No axilla or inguinal lymphadenopathy - Studies Laboratory Data (last 24 hrs) 11/24/21 05:40: Sodium 141, Potassium 4.0, BUN 12, Creatinine 0.89, Glucose 97, Magnesium 2.4 11/24/21 05:40: WBC 6.5 D, Hgb 15.0, Hct 44.5, Plt Count 111 L D Microbiology Data (last 24 hrs): 11/23/21 08:10 Wound - Right Buttock Gram Stain - Final 11/23/21 08:10 Wound - Right Buttock Gram Stain - Final Medications List Reviewed: Yes Assessment And Plan - Current Problems (Diagnosis) (1) Abscess, gluteal, right Current Visit: Yes Status: Acute Plan: CONSULT DR. BELLA. IV VANCOMYCIN SURGERY IN AM. I COULD NOT DO THIS NOTE YESTERDAY [employer] DID NOT WORK. TALKED TO DAUGHTER TO EXPLAIN IV ABX FOR 14 DAYS AT [place]. WOUND CARE BY DR. BELLA. IV ABX PLANNED. [employer] HAS ALL ORDERS. (2) Fx lumbar vertebra-closed Current Visit: Yes Status: Acute Plan: MEDICAL MANAGEMENT . HE CAN DO KYKPHOPLASTY BUT WITH A LARGE MRSA ABSCESS I WILL AVOID IT TO PREVENT SPINE INFECTION. Qualifiers: Encounter type: initial encounter Lumbar vertebra fracture level: L1 (3) Parkinson disease Current Visit: Yes Status: Acute
[2021-11-25] MEDS: VANCOMYCIN 2 GM in NA CHLORIDE 0.9% 500 ML IVPB SCH ×2 (02:17→21:23)
[2021-11-25 06:23] LABS: Absolute Lymphocytes (CBC) 1.4 K/uL (0.7-4.9); Hematocrit 42.2 % (39.6-49.0); Lymphocytes % 22.6 % (15.3-44.8); MCV 91.6 fL (80-100); MPV 7.9 fL (7.6-11.3); RBC Red Blood Cell Count 4.61 M/uL (4.33-5.43)
[2021-11-25 06:44] LABS: Magnesium 2.3 mg/dL (1.8-2.4); Potassium 3.9 mmol/L (3.5-5.1)
[2021-11-25] MEDS: MUPIROCIN 2% OINT 22GM TUBE TOP SCH ×2 (09:00→21:00)
[2021-11-25] MEDS ORDERED: POTASSIUM CL SA 10 MEQ TAB PO ONE (09:00)
[2021-11-25] MEDS: NACHLORIDE 0.45% 1,000 ML IV SCH (09:40)
[2021-11-25] MEDS: ENOXAPARIN 40 MG/0.4 ML SQ SCH (10:04)
--- NOTE | 2021-11-25 10:15 | RAD REPORT ---
EXAM DESCRIPTION: RAD - Chest Single View - 11/25/2021 3:23 am CLINICAL HISTORY: S/P PICC insertion COMPARISON: None. FINDINGS: Single frontal radiograph view of the chest. Cardiomediastinal silhouette: Normal size and contour. Leads overlie the chest. Right arm PICC with t ip proceeding to the level of the superior SVC. Lungs: No consolidation, pneumothorax, or pleural effusion. Bones: Degenerative change of the spine and shoulders. Upper abdomen: No abnormality identified. IMPRESSION: 1. Right arm PICC with tip in the SVC. Electronically signed by: Alexey Bran 11/25/2021 4:49 AM CDT Due to temporary technical issues with the PACS/Fluency reporting system, reports are being signed by the in house radiologists without review as a courtesy to insure prompt reporting. The interpreting radiologist is fully responsible for the content of the report.
--- NOTE | 2021-11-25 14:09 | P.PN ---
Subjective Date of Service: 11/25/21 Chief Complaint: BACK PAIN, LARGE GLUTEAL ABSCESS Subjective: Improving GOING FOR SURGERY. DR. BELLA , I CALLED LATER, HE FOUND A LARGE ABSCESS THAT WAS DRAINED. BALTAZAR IS DOING LOT BETTER. NOT MUCH AIN NOW. Physical Examination - Vital Signs Temperature: 98.6 F Blood Pressure: 172/79 Pulse: 74 Respirations: 18 Pulse Ox (%): 95 - Physical Exam General: Alert, In no apparent distress HEENT: Atraumatic, PERRLA, EOMI Neck: Supple, JVD not distended Respiratory: Clear to auscultation bilaterally, Normal air movement Cardiovascular: Regular rate/rhythm, Normal S1 S2 Gastrointestinal: Normal bowel sounds, No tenderness Musculoskeletal: No tenderness Integumentary: No rashes Neurological: Normal speech, Normal tone, Normal affect Lymphatics: No axilla or inguinal lymphadenopathy - Studies Laboratory Data (last 24 hrs) 11/25/21 05:51: Sodium 142, Potassium 3.9, BUN 12, Creatinine 0.91, Glucose 102, Magnesium 2.3 11/25/21 05:51: WBC 6.0, Hgb 14.5, Hct 42.2, Plt Count 239 D Microbiology Data (last 24 hrs): 11/23/21 08:10 Wound - Right Buttock Gram Stain - Final 11/23/21 08:10 Wound - Right Buttock Culture & Sensitivity - Final Meth Resistant Staph Aureus 11/23/21 08:10 Wound - Right Buttock Gram Stain - Final Medications List Reviewed: Yes Assessment And Plan - Current Problems (Diagnosis) (1) Abscess, gluteal, right Current Visit: Yes Status: Acute Plan: CONSULT DR. BELLA. IV VANCOMYCIN SURGERY IN AM. I COULD NOT DO THIS NOTE YESTERDAY [employer] DID NOT WORK. TALKED TO DAUGHTER TO EXPLAIN IV ABX FOR 14 DAYS AT [place] WOUND CARE BY DR. BELLA. IV ABX PLANNED. [employer] HAS ALL ORDERS. PICC LINE IN PLACE. WILL DC TO [place] WHEN SW ARE READY. (2) Fx lumbar vertebra-closed Current Visit: Yes Status: Acute Plan: MEDICAL MANAGEMENT . HE CAN DO KYKPHOPLASTY BUT WITH A LARGE MRSA ABSCESS I WILL AVOID IT TO PREVENT SPINE INFECTION. Qualifiers: Encounter type: initial encounter Lumbar vertebra fracture level: L1 (3) Parkinson disease Current Visit: Yes Status: Acute
[2021-11-26 05:39] LABS: Absolute Lymphocytes (CBC) 1.4 K/uL (0.7-4.9); Hematocrit 39.7 % (39.6-49.0); Lymphocytes % 20.1 % (15.3-44.8); MCV 91.9 fL (80-100); MPV 7.7 fL (7.6-11.3); RBC Red Blood Cell Count 4.32 M/uL (4.33-5.43)
[2021-11-26 05:52] LABS: Magnesium 2.1 mg/dL (1.8-2.4); Potassium 3.8 mmol/L (3.5-5.1)
[2021-11-26] MEDS: ENOXAPARIN 40 MG/0.4 ML SQ SCH (08:48)
[2021-11-26] MEDS ORDERED: POTASSIUM CL SA 10 MEQ TAB PO ONE (09:00)
[2021-11-26] MEDS: MUPIROCIN 2% OINT 22GM TUBE TOP SCH ×2 (09:00→21:00)
[2021-11-26 09:39] VITALS: O2SAT 96
--- NOTE | 2021-11-26 10:56 | P.PN ---
Subjective Date of Service: 11/26/21 Chief Complaint: BACK PAIN, LARGE GLUTEAL ABSCESS Subjective: Improving GOING FOR SURGERY. DR. BELLA , I CALLED LATER, HE FOUND A LARGE ABSCESS THAT WAS DRAINED. BALTAZAR IS DOING LOT BETTER. NOT MUCH AIN NOW. HE IS BETTER, LOT LESS PAIN AND ABLE TO AMBULATE. Physical Examination - Vital Signs Temperature: 98.3 F Blood Pressure: 153/90 Pulse: 62 Respirations: 18 Pulse Ox (%): 93 - Physical Exam General: Oriented x3, Mild distress HEENT: Atraumatic, PERRLA, EOMI Neck: Supple, JVD not distended Respiratory: Clear to auscultation bilaterally, Normal air movement Cardiovascular: Regular rate/rhythm, Normal S1 S2 Gastrointestinal: Normal bowel sounds, No tenderness Musculoskeletal: No tenderness Integumentary: No rashes Neurological: Normal speech, Normal tone, Normal affect Lymphatics: No axilla or inguinal lymphadenopathy - Studies Laboratory Data (last 24 hrs) 11/26/21 05:18: Sodium 140, Potassium 3.8, BUN 9, Creatinine 0.89, Glucose 90, Magnesium 2.1 11/26/21 05:18: WBC 7.2 D, Hgb 13.8, Hct 39.7, Plt Count 231 Microbiology Data (last 24 hrs): 11/23/21 08:10 Wound - Right Buttock Gram Stain - Final 11/23/21 08:10 Wound - Right Buttock Culture & Sensitivity - Final Meth Resistant Staph Aureus Medications List Reviewed: Yes Assessment And Plan - Current Problems (Diagnosis) (1) Abscess, gluteal, right Current Visit: Yes Status: Acute Plan: PICC LINE IN PLACE. WILL DC TO [place] WHEN SW ARE READY. ALL THE ERYTHMA THAT WAS SEVERE HAS RESOLVED. AREA OF ABOUT 2=4 CM OF ULCER IS BEING DRESSED DAILY, THIS IS ABOUT 2 CM DEEP. (2) Fx lumbar vertebra-closed Current Visit: Yes Status: Acute Plan: MEDICAL MANAGEMENT . HE CAN DO KYKPHOPLASTY BUT WITH A LARGE MRSA ABSCESS I WILL AVOID IT TO PREVENT SPINE INFECTION. NO SURGERY FOR BACK. PAIN IS NOT BAD ENOUGH. Qualifiers: Encounter type: initial encounter Lumbar vertebra fracture level: L1 (3) Parkinson disease Current Visit: Yes Status: Acute
[2021-11-26] MEDS: VANCOMYCIN 2 GM in NA CHLORIDE 0.9% 500 ML IVPB SCH (14:39)
[2021-11-26] MEDS: NACHLORIDE 0.45% 1,000 ML IV SCH (18:13)
[2021-11-27 04:48] LABS: Absolute Lymphocytes (CBC) 1.3 K/uL (0.7-4.9); Hematocrit 41.1 % (39.6-49.0); Lymphocytes % 18.6 % (15.3-44.8); MCV 92.1 fL (80-100); MPV 7.9 fL (7.6-11.3); RBC Red Blood Cell Count 4.46 M/uL (4.33-5.43)
[2021-11-27 04:53] LABS: Magnesium 2.1 mg/dL (1.8-2.4); Potassium 3.4 mmol/L (3.5-5.1)
[2021-11-27] MEDS: ENOXAPARIN 40 MG/0.4 ML SQ SCH (08:30)
[2021-11-27] MEDS: VANCOMYCIN 2 GM in NA CHLORIDE 0.9% 500 ML IVPB SCH (08:30)
[2021-11-27] MEDS ORDERED: POTASSIUM CL SA 10 MEQ TAB PO ONE (09:00)
[2021-11-27] MEDS: MUPIROCIN 2% OINT 22GM TUBE TOP SCH (09:00)
[2021-11-27 17:19] VITALS: BP 171/83; TEMP 98
--- NOTE | 2021-11-27 21:53 | P.DS ---
Admission Date: 11/22/21 Discharge Date: 11/27/21 Disposition: TRANSFER TO ALF Reason for Admission: BACK PAIN, LARGE GLUTEAL ABSCESS - Problems (1) Abscess, gluteal, right Status: Acute (2) Fx lumbar vertebra-closed Status: Acute Qualifiers: Encounter type: initial encounter Lumbar vertebra fracture level: L1 (3) Parkinson disease Status: Acute Brief History of Present Illness: DAUGHTER CAME TO OFFICE TELLING US THAT HE IS IN A LOT OF PAIN AND CAN'T GET OUT OF BED. THIS IS AFTER HE FELL AT DR. PALMER'S OFFICE. I SUSPECETD LUMBAR FRACTURE AND ADMITTED HIM. THERE IS A LARGE ARE OF PAIN AND REDNESS IN GLUTEAL REGION THAT HE OR SHE WERE NOT AWARE OF . HE DOES NOT TAKE SHOWER DAILY. Hospital Course: [facility]. HE WILL GET PT. PAIN HAS ALMOST RESOLVED. Vital Signs/Physical Exam: Temp Pulse Resp BP Pulse Ox 98 F 60 18 171/83 H 96 11/27/21 16:00 11/27/21 16:00 11/27/21 16:00 11/27/21 16:00 11/27/21 16:00 Laboratory Data at Discharge: WBC 7.0 K/uL (4.3-10.9) 11/27/21 04:20 Hgb 14.0 g/dL (13.6-17.9) 11/27/21 04:20 Hct 41.1 % (39.6-49.0) 11/27/21 04:20 Plt Count 232 K/uL (152-406) 11/27/21 04:20 PT 13.1 SECONDS (9.5-12.5) H 11/22/21 16:07 INR 1.19 11/22/21 16:07 APTT 27.9 SECONDS (24.3-36.9) 11/22/21 16:07 Sodium 138 mmol/L (136-145) 11/27/21 04:20 Potassium 4.2 mmol/L (3.5-5.1) 11/27/21 15:10 BUN 13 mg/dL (7-18) 11/27/21 04:20 Creatinine 0.83 mg/dL (0.55-1.3) 11/27/21 04:20 Glucose 147 mg/dL (74-106) H 11/27/21 04:20 Phosphorus 3.1 mg/dL (2.5-4.9) 11/22/21 16:07 Magnesium 2.1 mg/dL (1.8-2.4) 11/27/21 04:20 Total Bilirubin 0.6 mg/dL (0.2-1.0) 11/22/21 16:07 AST 22 U/L (15-37) 11/22/21 16:07 ALT 26 U/L (12-78) 11/22/21 16:07 Alkaline Phosphatase 76 U/L (45-117) 11/22/21 16:07 Home Medications: Atorvastatin Calcium [Lipitor] 40 mg PO BEDTIME 07/20/11 Omeprazole Magnesium [Prilosec Otc] 20 mg PO DAILY 07/20/11 Valsartan [Diovan] 160 mg PO DAILY 07/20/11 Clopidogrel Bisulfate [Plavix*] 75 mg PO DAILY #30 tablet 07/14/13 Losartan Potassium [Cozaar*] 50 mg PO DAILY 07/14/13 Carbidopa/Levodopa 25-250 [Sinemet 25-250*] 25 - 250 mg PO TID 11/22/21 Cephalexin [Keflex*] 500 mg PO Q6HR 11/22/21 Doxycycline Hyclate 100 mg PO BID 11/22/21 Levetiracetam [Keppra] 500 mg PO BID 11/22/21 Venlafaxine HCl [Venlafaxine HCl ER] 75 mg PO DAILY 11/22/21 Physician Discharge Instructions: Wet-to-dry normal saline dressing changes daily Antibiotics and pain meds per Dr. Fernandez Followup: Dain Menchaca MD [ACTIVE - CAN ADMIT] - 1-2 Weeks (Follow-up in the wound healing center in my clinic)
[2021-11-28] MEDS ORDERED: VANCOMYCIN 2 GM in NA CHLORIDE 0.9% 500 ML IVPB SCH ×2 (02:00→09:00)
--- OUTSIDE RECORDS SUMMARY | 2021-12-06 15:36 | XMS REPORT | Continuity of Care Document ---
:1940 Author Organization [facility] t Address [address] [place] [address] Care Team Providers Name Role Phone MARIA ISABEL Primary Care Physician Unavailable Radha Mckeon MD Attending Clinician RADHA MCKEON Attending Clinician Unavailable RADHA MCKEON Attending Clinician Unavailable MARIA EUGENIA SALAZAR MEDICAL Attending Clinician Unavailable Payers Payer Name Policy Type Policy Number Effective Date Expiration Date S ource MEDICARE-PART B 5 [id number] 2020 00:00:00 Problems Condition Condition Condition Status Onset Resolution Last Treating Co mments Source Name Details Category Date Date Treatment Clinician Date No known No known Disease Unive rs active active ity of problems problems [facility] Allergies, Adverse Reactions, Alerts Allergy Allergy Status Severity Reaction(s) Onset Inactive Treating Comm ents Source Name Type Date Date Clinician NO KNOWN Drug Active Univers ALLERGIE Class ity of S [facility] Social History Social Habit Start Date Stop Date Quantity Comments Source Exposure to 2021-11-07 2021-11-17 Not sure [facility]-CoV-2 00:00:00 11:59:00 [facility] (event) [place] Alcohol intake 2021-11-17 2021-11-17 Current drinker Unive rsity of 00:00:00 00:00:00 of alcohol [facility] (finding) [place] Tobacco use and 2018-04-29 2018-04-29 Smokeless tobacco Un iversity of exposure 00:00:00 00:00:00 non-user [facility] Sex Assigned At [birth year] Universit y of 00:00:00 00:00:00 [facility] Smoking Status Start Date Stop Date Source Never smoked tobacco [facility] Medications Ordered Filled Start Stop Current Ordering Indication Dosage Frequency Signature Comments Components Source Medication Medication Date Date Medication? Clinician (SIG) Name Name levETIRAcet Yes [id number] 500mg Take 1 Univers am (KEPPRA) 7- tablet by ity of 500 mg 00:00: mouth 2 [place] tablet 00 (two) Medical times Branch daily. carbidopa-l Yes [id number] 1{tbl} Take 1 Univers evodopa-ent 7- tablet by ity of acapone 00:00: mouth 2 [place] (STALEVO 00 (two) Medical 200) times Branch 50-200-200 daily. mg per tablet clotrimazol Yes Fede peralta e-betametha 6-15 ity of sone cream 00:00: [place] 00 Medical Branch acetaminoph Yes Fede peralta en-codeine 5-09 ity of 300-30 mg 00:00: [place] tablet 00 Medical Branch CARBIDOPA-L 2021- No [id number] 1{tbl} TAKE 1 Univers EVODOPA 4-21 - TABLET BY ity of 25-250 mg 00:00: 00:00 [place]TH 3 [place] per tablet 00 :00 (THREE) Medica l TIMES Branch DAILY. LEVETIRACET 2021- No [id number] TAKE 1 Univers AM 250 mg 1-18 - TABLET BY ity of tablet 00:00: 00:00 MOUTH 2 [place] 00 :00 TIMES Medical DAILY Branch clopidogreL 2020-05 Yes 75mg Take 1 Univ ers 75 mg 2-29 tablet by ity of tablet 00:00: mouth [place] 00 daily. Medical Branch atorvastati Yes 40mg Take 40 mg Univers n 40 mg 8-04 by mouth ity of tablet 08:39: at [place] 22 bedtime. Medical Branch hydroCHLORO Yes Fede peralta thiazide 6- ity of 12.5 mg 00:00: [place] tablet 00 Medical Branch escitalopra Yes Fede peralta m oxalate 6- ity of 10 mg 00:00: [place] tablet 00 Medical Branch ranitidine Yes Univers 150 mg 8- ity of tablet 00:00: [place] 00 [facility] losartan 50 2018-0 Yes Univer s mg tablet 8- ity of 00:00: [place] [facility] Immunizations Ordered Filled Immunization Date Status Comments Sour e Immunization Name Name SARS-COV-2 COVID-19 2020-07-13 Completed Unive rsity of MODERNA VACCINE 00:00:00 [facility] SARS-COV-2 COVID-19 2020-06-15 Completed Unive rsity of MODERNA VACCINE 00:00:00 [facility] Vital Signs Vital Name Observation Time Observation Value Comments Source Systolic blood 2021-11-17 17:02:00 130 mm[Hg] Univer sity of [facility] Diastolic blood 2021-11-17 17:02:00 80 mm[Hg] Unive rsity of [facility] Body height 2021-11-17 17:02:[address] [facility] Body weight 2021-11-17 17:02:[address] [facility] BMI 2021-11-17 17:02:00 33.50 kg/m2 [facility] Procedures This patient has no known procedures. Encounters Start End Encounter Admission Attending Care Care Encounter Source Date/Time Date/Time Type Type Clinicians Facility Department ID 2021-11-17 2021-11-17 Office Linda NYSMITHA [id number] [facility] 11:00:00 12:19:[address] [id number] [id number] Servando as MEETA?BLEA [id number] [place] [id number] [place] [facility] 2021-11-17 2021-11-17 Outpatient R DEAN MCKEON [facility] [id number] Univers 11:00:00 12:19:41 DEAN MCKEON [facility] 2021-05-04 2021-05-04 Outpatient GROUP, MELISSA TORRES [id number] Melissa 00:00:00 00:00:00 MELISSA benson 2019-12-22 2019-12-22 Office Linda NYSMITHA [id number] 08:21:33 09:53:26 Visit Dean Patricio [id number] [place] [id number] Profess [phone] [facility] Results This patient has no known results.
== END 2021-11-27 18:36 | DRG 264 ==
LOC: 2ND 13:15 → OBSVTOIN 13:15
PROVIDERS: ADMIT Internal Medicine; ATTEND Internal Medicine
PROC: 0JB90ZZ Excision of Buttock Subcutaneous Tissue and Fascia, Open Approach (ICD-10-PCS; principal; 2021-11-23 07:15)
PROC: 02HV33Z Insertion of Infusion Device into Superior Vena Cava, Percutaneous Approach (ICD-10-PCS; 2021-11-25)
PROC: 3E04329 Introduction of Other Anti-infective into Central Vein, Percutaneous Approach (ICD-10-PCS; 2021-11-25)
DX: I96 Gangrene, not elsewhere classified (principal); S32.019A Unspecified fracture of first lumbar vertebra, initial encounter for closed fracture; L02.31 Cutaneous abscess of buttock; B95.62 Methicillin resistant Staphylococcus aureus infection as the cause of diseases classified elsewhere; I10 Essential (primary) hypertension; G20 Parkinson's disease; F32.A Depression, unspecified; W18.30XA Fall on same level, unspecified, initial encounter; Y92.89 Other specified places as the place of occurrence of the external cause; Z20.822 Contact with and (suspected) exposure to COVID-19
CPT/HCPCS: 36415; 36569; 71045; 71046; 72148; 80048; 80076; 80202; 82306; 82607; 83735; 84100; 84132; 84443; 85025; 85610; 85730; 87070; 87075; 87077; 87186; 87205; 88304; 93005; 97112; 97116; 97161; 97530; 99283; J0690; J1170; J1650; J2405; J2704; J3010; J3370; J7040; J7120; U0003

== ENCOUNTER 2022-10-23 11:19 | Inpatient (IN) | payer OTHER ==
[2022-10-23] MEDS ORDERED: NA CHLORIDE 0.9% 1,000 ML ONE (11:43)
[2022-10-23] MEDS ORDERED: CEFTRIAXONE 1000 MG/VIAL ONE (11:43)
[2022-10-23] MEDS ORDERED: HYDROCORTISONE SUC 100 MG INJ ONE (11:43)
[2022-10-23 12:09] LABS: Absolute Lymphocytes (CBC) 0.7 K/uL (0.7-4.9); Hematocrit 43.9 % (39.6-49.0); Lymphocytes % 7.7 % (15.3-44.8); MCV 91.8 fL (80-100); MPV 8.1 fL (7.6-11.3); RBC Red Blood Cell Count 4.77 M/uL (4.33-5.43)
[2022-10-23 12:13] LABS: Protime INR 1.07
[2022-10-23 12:23] LABS: SARS-CoV-2 Antigen Rapid Res Negative (Negative)
--- NOTE | 2022-10-23 12:32 | RAD REPORT ---
EXAM DESCRIPTION: RADChest Single View10/23/2022 12:25 pm CLINICAL HISTORY: CONGESTION COMPARISON: Chest Single View dated 11/25/2021; Chest Pa And Lat (2 Views) dated 11/22/2021; Chest Pa An d Lat (2 Views) dated 12/08/2018; Chest Single View dated 02/07/2018 TECHNIQUE: Portable AP view of the chest. FINDINGS: Blunting of the left costophrenic angle could reflect pleural thickening or trace effusion . The appearance is stable. No new focal airspace opacity. Decreased inspiratory effort limits evalua tion. No pneumothorax or sizable effusion. The cardiomediastinal contours are unremarkable. IMPRESSION: No acute cardiopulmonary process. Stable findings as above.
[2022-10-23 12:33] LABS: Bilirubin Direct 0.2 mg/dL (0-0.2); Bilirubin Indirect, Calculated 0.8 mg/dL (0.2-0.8); Magnesium 2.2 mg/dL (1.6-2.4); Potassium 3.2 mEq/L (3.5-5.1); Protein, Total 7.8 g/dL (6.4-8.2); Troponin High Sensitivity 7.7 pg/mL (<58.9)
--- NOTE | 2022-10-23 12:53 | EDPHYS ---
Physician Documentation [facility] Name: Bry Hanson Age: 82 yrs Sex: Male : 1940 Arrival Date: 10/23/2022 Time: 11:19 Bed 6 Private MD: ED Physician Omega Bonilla HPI: 10/23 12:38 This 82 yrs old Male presents to ER via EMS with complaints of General duane Weakness. 12:38 weakness, couldn't get off floor. Onset: The symptoms/episode began/occurred 2 day(s) duane ago. Severity of symptoms: At their worst the symptoms were mild in the emergency department the symptoms are unchanged. The patient has experienced similar episodes in the past, multiple times. Historical: - Allergies: 11:26 No Known Allergies; hb - Home Meds: 11:26 levadopa [Active]; BP med [Active]; Eliquis oral [Active]; hb - PMHx: 11:26 CVA; Depression; Hyperlipidemia; Hypertension; Parkinsons; Seizures; hb - Immunization history:: Adult Immunizations up to date. - Social history:: Smoking status: Patient denies any tobacco usage or history of. ROS: 12:47 Constitutional: Negative for fever, chills, and weight loss, Eyes: Negative for injury, duane pain, redness, and discharge, ENT: Negative for injury, pain, and discharge, Neck: Negative for injury, pain, and swelling, Cardiovascular: Negative for chest pain, palpitations, and edema, Respiratory: Negative for shortness of breath, cough, wheezing, and pleuritic chest pain, Abdomen/GI: Negative for abdominal pain, nausea, vomiting, diarrhea, and constipation, Back: Negative for injury and pain, : Negative for injury, bleeding, discharge, and swelling, MS/Extremity: Negative for injury and deformity, Skin: Negative for injury, rash, and discoloration, Psych: Negative for depression, anxiety, suicide ideation, homicidal ideation, and hallucinations, Allergy/Immunology: Negative for hives, rash, and allergies, Endocrine: Negative for neck swelling, polydipsia, polyuria, polyphagia, and marked weight changes, Hematologic/Lymphatic: Negative for swollen nodes, abnormal bleeding, and unusual bruising. 12:47 Neuro: Positive for weakness. Exam: 12:47 Constitutional: This is a well developed, well nourished patient who is awake, alert, duane and in no acute distress. Head/Face: Normocephalic, atraumatic. Eyes: Pupils equal round and reactive to light, extra-ocular motions intact. Lids and lashes normal. Conjunctiva and sclera are non-icteric and not injected. Cornea within normal limits. Periorbital areas with no swelling, redness, or edema. ENT: Nares patent. No nasal discharge, no septal abnormalities noted. Tympanic membranes are normal and external auditory canals are clear. Oropharynx with no redness, swelling, or masses, exudates, or evidence of obstruction, uvula midline. Mucous membranes moist. Neck: Trachea midline, no thyromegaly or masses palpated, and no cervical lymphadenopathy. Supple, full range of motion without nuchal rigidity, or vertebral point tenderness. No Meningismus. Chest/axilla: Normal chest wall appearance and motion. Nontender with no deformity. No lesions are appreciated. Cardiovascular: Regular rate and rhythm with a normal S1 and S2. No gallops, murmurs, or rubs. Normal PMI, no JVD. No pulse deficits. Respiratory: Lungs have equal breath sounds bilaterally, clear to auscultation and percussion. No rales, rhonchi or wheezes noted. No increased work of breathing, no retractions or nasal flaring. Abdomen/GI: Soft, non-tender, with normal bowel sounds. No distension or tympany. No guarding or rebound. No evidence of tenderness throughout. Back: No spinal tenderness. No costovertebral tenderness. Full range of motion. Male : Normal genitalia with no discharge or lesions. Skin: Warm, dry with normal turgor. Normal color with no rashes, no lesions, and no evidence of cellulitis. MS/ Extremity: Pulses equal, no cyanosis. Neurovascular intact. Full, normal range of motion. Neuro: Awake and alert, GCS 15, oriented to person, place, time, and situation. Cranial nerves II-XII grossly intact. Motor strength 5/5 in all extremities. Sensory grossly intact. Cerebellar exam normal. Normal gait. Psych: Awake, alert, with orientation to person, place and time. Behavior, mood, and affect are within normal limits. 12:47 ECG was reviewed by the Attending Physician. 15:24 ECG was reviewed by the Attending Physician. [facility] Vital Signs: 11:23 BP 124 / 65; Pulse 84; Resp 14; Temp 98.3; Pulse Ox 96% on R/A; Weight 115.67 kg; hb Height 5 ft. 0 in. ; Pain 3/10; 12:30 BP 136 / 76; Pulse 72; Resp 15; Pulse Ox 99% ; hb 13:30 BP 140 / 82; Pulse 70; Resp 16; Pulse Ox 99% on R/A; hb 15:10 BP 125 / 83; Pulse 68; Resp 15; Pulse Ox 99% on R/A; hb 16:30 BP 124 / 74; Pulse 72; Resp 14; Pulse Ox 99% ; hb 17:00 BP 128 / 78; Pulse 74; Resp 16; Pulse Ox 98% on R/A; hb 18:09 BP 139 / 75; Pulse 79; Resp 17; Pulse Ox 99% on R/A; hb 11:23 Body Mass Index 49.80 (115.67 kg, 152.4 cm) hb 11:23 Pain Scale: Adult hb MDM: 11:25 Patient medically screened. duane 12:49 Differential Diagnosis altered mental status, sepsis, flu. Differential diagnosis: duane cardiac arrhythmia, CVA, generalized weakness, GI bleed, hypovolemia, idiopathic dizziness, near-syncope, TIA. Data reviewed: vital signs, nurses notes, lab test result(s), EKG, radiologic studies, CT scan, plain films. Consideration of Admission/Observation Escalation of care including admission/observation considered. I considered the following discharge prescriptions or medication management in the emergency department Medications were administered in the Emergency Department. See MAR. Test considered but Not performed: MRI: no brain mri. Care significantly affected by the following chronic conditions: Hypertension, seizure, depression, cva, parkinsons. 10/23 11:27 Order name: Basic Metabolic Panel; Complete Time: 12:35 [facility] 10/23 11:27 Order name: CBC with Diff; Complete Time: 12:29 [facility] 10/23 11:27 Order name: LFT's; Complete Time: 12:35 [facility] 10/23 11:27 Order name: Magnesium; Complete Time: 12:35 [facility] 10/23 11:27 Order name: NT PRO-BNP; Complete Time: 12:35 [facility] 10/23 11:27 Order name: PT-INR; Complete Time: 12:29 [facility] 10/23 11:27 Order name: Troponin HS; Complete Time: 12:35 [facility] 10/23 11:27 Order name: Lipase; Complete Time: 12:35 [facility] 10/23 11:27 Order name: Blood Culture Adult (2) [facility] 10/23 11:27 Order name: Lactate w/ 2H reflex if indic.; Complete Time: 12:29 [facility] 10/23 11:27 Order name: Urinalysis w/ reflexes; Complete Time: 17:15 [facility] 10/23 11:27 Order name: SARS RAPID; Complete Time: 12:29 [facility] 10/23 11:27 Order name: Flu; Complete Time: 12:47 [facility] 10/23 12:36 Order name: CK; Complete Time: 17:15 [facility] 10/23 15:15 Order name: Lactate Sepsis 2 HR Follow-up; Complete Time: 15:25 EDMS 10/23 15:33 Order name: Urinalysis w/ reflexes; Complete Time: 17:15 EDMS 10/23 11:27 Order name: XRAY Chest (1 view); Complete Time: 12:35 [facility] 10/23 12:36 Order name: CT Stone Protocol; Complete Time: 13:30 [facility] 10/23 17:19 Order name: MRI Stroke Protocol [facility] 10/23 17:19 Order name: CT Head Brain wo Cont [facility] 10/23 18:37 Order name: CT; Complete Time: 19:07 EDUT 10/23 11:27 Order name: EKG; Complete Time: 11:27 [facility] 10/23 11:27 Order name: Cardiac monitoring; Complete Time: 11:33 [facility] 10/23 11:27 Order name: EKG - Nurse/Tech; Complete Time: 15:38 [facility] 10/23 11:27 Order name: IV Saline Lock; Complete Time: 12:05 [facility] 10/23 11:27 Order name: Labs collected and sent; Complete Time: 12:05 [facility] 10/23 11:27 Order name: O2 Per Protocol; Complete Time: 11:33 [facility] 10/23 11:27 Order name: O2 Sat Monitoring; Complete Time: 11:33 [facility] 10/23 13:40 Order name: Misc. Order: get ua please; Complete Time: 15:01 [facility] EC:24 Rate is 73 beats/min. Rhythm is regular. QRS [place] is Normal. [place] interval is prolonged [facility] at 216 msec. QRS interval is normal. QT interval is normal. No Q waves. T waves are Normal. No ST changes noted. Clinical impression: 1st degree heart block and No evidence of ischemia. Interpreted by me. Reviewed by me. Administered Medications: 12:04 Drug: NS 0.9% IV 1000 ml Route: IV; Rate: 1 bolus; Site: left antecubital; hb 13:00 Follow up: Response: No adverse reaction; IV Status: Infusion continued; IV Intake: hb 1000ml 12:04 Drug: Solu-CORTEF IVP 100 mg Route: IVP; Site: left antecubital; hb 13:00 Follow up: Response: No adverse reaction hb 12:45 Drug: Rocephin IV 1 grams Route: IV; Rate: per protocol; Site: left antecubital; hb 12:50 Follow up: IV Status: Completed infusion; IV Intake: 10ml hb 15:09 Follow up: Response: No adverse reaction hb 15:08 Drug: Potassium PO Effervescent Tablet 25 mEq Route: PO; hb 16:00 Follow up: Response: No adverse reaction hb Disposition Summary: 10/23/22 12:52 Hospitalization Ordered Hospitalization Status: Observation duane Provider: Keegan Fernandez cha Location: Telemetry/MedSurg (observation) duane Condition: Fair duane Problem: new duane Symptoms: have improved duane Bed/Room Type: Standard [facility] Room Assignment: 206(10/23/22 18:01) dw Diagnosis - Sepsis, unspecified organism duane - Weakness duane - Fall on same level, unspecified duane - Hypokalemia duane Forms: - Medication Reconciliation Form duane - SBAR form duane Signatures: Dispatcher [employer] Demetria Duncan RN RN dw Anderson, Corey, MD MD cha Baxter, Heather, RN RN Corrections: (The following items were deleted from the chart) 18:01 12:52 duane dw
--- NOTE | 2022-10-23 12:53 | ER ---
Nurse's Notes [facility] Name: Bry Hanson Age: 82 yrs Sex: Male : 1940 Arrival Date: 10/23/2022 Time: 11:19 Bed 6 Private MD: Diagnosis: Sepsis, unspecified organism;Weakness;Fall on same level, unspecified;Hypokalemia Presentation: 10/23 11:23 Chief complaint: EMS states: Found by intermediate staff on hands and knees, pt reports hb his legs felt weak when getting out of bed, he slid down to his knees and was unable to get up unassisted. Estimated time down is 1 hour. Pt reports generalized weakness x 2 days. Coronavirus screen: At this time, the client does not indicate any symptoms associated with coronavirus-19. Ebola Screen: No symptoms or risks identified at this time. Initial Sepsis Screen: Does the patient meet any 2 criteria? No. Patient's initial sepsis screen is negative. Does the patient have a suspected source of infection? No. Patient's initial sepsis screen is negative. Risk Assessment: Do you want to hurt yourself or someone else? Patient reports no desire to harm self or others. Onset of symptoms was October 23, 2022. 11:23 Method Of Arrival: EMS: [facility] hb 11:23 Acuity: FABIO 3 hb Historical: - Allergies: 11:26 No Known Allergies; hb - Home Meds: 11:26 levadopa [Active]; BP med [Active]; Eliquis oral [Active]; hb - PMHx: 11:26 CVA; Depression; Hyperlipidemia; Hypertension; Parkinsons; Seizures; hb - Immunization history:: Adult Immunizations up to date. - Social history:: Smoking status: Patient denies any tobacco usage or history of. Screenin:05 [facility] ED Fall Risk Assessment (Adult) Score/Fall Risk Level 3 or more points = High hb Risk Oriented to surroundings, Maintained a safe environment, Educated pt \T\ family on fall prevention, incl call for assistance when getting out of bed. Abuse screen: Denies threats or abuse. Denies injuries from another. Nutritional screening: No deficits noted. Tuberculosis screening: No symptoms or risk factors identified. Assessment: 12:05 General: Appears in no apparent distress. Behavior is calm, cooperative. Pain: Pain hb currently is 3 out of 10 on a pain scale. Neuro: Level of Consciousness is awake, alert, obeys commands, Oriented to person, place, time, situation. Cardiovascular: Patient's skin is warm and dry. Respiratory: Respiratory effort is even, unlabored, Respiratory pattern is regular, symmetrical. GI: No signs and/or symptoms were reported involving the gastrointestinal system. : No signs and/or symptoms were reported regarding the genitourinary system. EENT: No signs and/or symptoms were reported regarding the EENT system. Derm: Skin is pink, warm \T\ dry. Musculoskeletal: Reports low back pain, generalized weakness. 13:33 Reassessment: Patient appears in no apparent distress at this time. Patient and/or hb family updated on plan of care and expected duration. Pain level reassessed. Patient is alert, oriented x 3, equal unlabored respirations, skin warm/dry/pink. 14:45 Reassessment: Patient appears in no apparent distress at this time. Patient and/or hb family updated on plan of care and expected duration. Pain level reassessed. Patient is alert, oriented x 3, equal unlabored respirations, skin warm/dry/pink. 15:45 Reassessment: Patient appears in no apparent distress at this time. Patient and/or hb family updated on plan of care and expected duration. Pain level reassessed. Patient is alert, oriented x 3, equal unlabored respirations, skin warm/dry/pink. 17:00 Reassessment: Patient appears in no apparent distress at this time. Patient and/or hb family updated on plan of care and expected duration. Pain level reassessed. Patient is alert, oriented x 3, equal unlabored respirations, skin warm/dry/pink. 18:00 Reassessment: Patient appears in no apparent distress at this time. Patient and/or hb family updated on plan of care and expected duration. Pain level reassessed. Patient is alert, oriented x 3, equal unlabored respirations, skin warm/dry/pink. Vital Signs: 11:23 BP 124 / 65; Pulse 84; Resp 14; Temp 98.3; Pulse Ox 96% on R/A; Weight 115.67 kg; hb Height 5 ft. 0 in. ; Pain 3/10; 12:30 BP 136 / 76; Pulse 72; Resp 15; Pulse Ox 99% ; hb 13:30 BP 140 / 82; Pulse 70; Resp 16; Pulse Ox 99% on R/A; hb 15:10 BP 125 / 83; Pulse 68; Resp 15; Pulse Ox 99% on R/A; hb 16:30 BP 124 / 74; Pulse 72; Resp 14; Pulse Ox 99% ; hb 17:00 BP 128 / 78; Pulse 74; Resp 16; Pulse Ox 98% on R/A; hb 18:09 BP 139 / 75; Pulse 79; Resp 17; Pulse Ox 99% on R/A; hb 11:23 Body Mass Index 49.80 (115.67 kg, 152.4 cm) hb 11:23 Pain Scale: Adult hb ED Course: 11:22 Patient arrived in ED. hb 11:25 Omega Bonilla MD is Attending Physician. duane 11:26 Triage completed. hb 11:26 Arm band placed on. hb 11:32 Kacey Sheridan, RN is Primary Nurse. hb 11:50 Inserted saline lock: 20 gauge in left antecubital area, using aseptic technique. Blood hb collected. 12:04 Flu Sent. hb 12:04 SARS RAPID Sent. hb 12:04 Lactate w/ 2H reflex if indic. Sent. hb 12:05 Patient has correct armband on for positive identification. hb 12:05 Blood Culture Adult (2) Sent. hb 12:05 Lipase Sent. hb 12:05 Basic Metabolic Panel Sent. hb 12:05 CBC with Diff Sent. hb 12:05 LFT's Sent. hb 12:05 Magnesium Sent. hb 12:05 NT PRO-BNP Sent. hb 12:05 Troponin HS Sent. hb 12:05 PT-INR Sent. hb 12:26 XRAY Chest (1 view) In Process Unspecified. EDMS 12:46 CT Stone Protocol In Process Unspecified. EDMS 12:51 Keegan Fernandez MD is Hospitalizing Provider. duane 18:11 No provider procedures requiring assistance completed. Patient admitted, IV remains in hb place. Administered Medications: 12:04 Drug: NS 0.9% IV 1000 ml Route: IV; Rate: 1 bolus; Site: left antecubital; hb 13:00 Follow up: Response: No adverse reaction; IV Status: Infusion continued; IV Intake: hb 1000ml 12:04 Drug: Solu-CORTEF IVP 100 mg Route: IVP; Site: left antecubital; hb 13:00 Follow up: Response: No adverse reaction hb 12:45 Drug: Rocephin IV 1 grams Route: IV; Rate: per protocol; Site: left antecubital; hb 12:50 Follow up: IV Status: Completed infusion; IV Intake: 10ml hb 15:09 Follow up: Response: No adverse reaction hb 15:08 Drug: Potassium PO Effervescent Tablet 25 mEq Route: PO; hb 16:00 Follow up: Response: No adverse reaction hb Medication: 12:05 VIS not applicable for this client. hb Intake: 12:50 IV: 10ml; Total: 10ml. hb 13:00 IV: 1000ml; Total: 1010ml. hb Outcome: 12:52 Decision to Hospitalize by Provider. duane 18:11 Admitted to Tele accompanied by tech, via stretcher, room 206. hb 18:11 Condition: stable 18:11 Instructed on the need for admit, Demonstrated understanding of instructions. 20:14 Patient left the ED. [email or web address] Signatures: Dispatcher [employer] Omega Godinez MD MD cha Baxter, Heather, RN RN Chandler Ibarra, RN RN jb4
--- NOTE | 2022-10-23 13:00 | RAD REPORT ---
EXAM DESCRIPTION: CT - Stone Protocol - 10/23/2022 12:46 pm CLINICAL HISTORY: Flank pain. Fever;Flank pain COMPARISON: No comparisons TECHNIQUE: Axial images were obtained without oral or IV contrast. Lack of contrast limits solid org an and vascular assessment. The [id number] spans the entirety of the system partially obscuring uppermost abdomen and lung bases. Coronal reformatted images were obtained and reviewed. All CT scans are performed using dose optimization technique as appropriate and may include automated exposure control or mA/KV adjustment according to patient size. FINDINGS: The lower lung blackwell are clear. Small hiatal hernia. Imaged portions of the liver and spleen show no suspicious findings on non-contrast imaging. The panc reas and adrenal glands are normal. No pathologic lymphadenopathy in the abdomen or pelvis. No urinary tract stones or obstructive uropathy. No bowel obstruction, free air, free fluid or abscess. Nonvisualized appendix.Small fat containing um bilical hernia. Sigmoid diverticulosis coli is present without diverticulitis. Bilateral fat containing inguinal edwina ias, larger on the left. Moderate lumbar degenerative changes. L1 vertebroplasty cement. IMPRESSION: No acute process is identified appear Moderate fecal retention with diverticulosis coli. No diverticulitis. Fat containing bilateral inguinal hernias, larger on the left.
--- OUTSIDE RECORDS SUMMARY | 2022-10-23 13:26 | XMS REPORT | Continuity of Care Document ---
:1940 Author Organization [facility] t Address [address] [place] [address] [place] [id number] Care Team Providers Name Role Phone Jim Keegan Feliciano Primary Care Physician YEMI MCKEON Attending Clinician Unavailable YEMI MCKEON Attending Clinician Unavailable Yemi Mckeon MD Attending Clinician Ariela Hawkins Attending Clinician VISIT, NURSE UAVITALIY Attending Clinician Unavailable Doctor Unassigned, [place] Attending Clinician Unavailable POWER CORDERO Attending Clinician Unavailable Pam Wright PTA Attending Clinician Unavailable Power Cordero MD Attending Clinician Gia Wright PTA Attending Clinician Unavailable Trinity Blandon PT Attending Clinician Unavailable Fish Le MD Attending Clinician FISH LE Attending Clinician Unavailable MUNA SALAZAR MEDICAL Attending Clinician UnavailKAIA Oliver Attending Clinician Unavailable RISHI DURAN Attending Clinician Unavailable Drew Shea Attending Clinician Yemi Mckeon Jr Attending Clinician YEMI MCKEON Admitting Clinician Unavailable Payers Payer Name Policy Type Policy Number Effective Date Expiration Date S ource MEDICARE PART A \T\ [id number] 2006 B 00:00:00 [id number] 2008 [employer] 00:00:00 MEDICARE-PART B 5 [id number] 2020 00:00:00 Problems Condition Condition Condition Status Onset Resolution Last Treating Co mments Source Name Details Category Date Date Treatment Clinician Date FALL FROM FALL Diagnosis Active 2017-08-15 Memoria STANDING FROM 08-15 10:56:00 l STANDING 00:00: [place] Active 08/15/2017 [facility] G45.3 - G45.3 - Diagnosis Active 2017-07-03 Memoria AMAUROSIS AMAUROSIS 06-25 08:10:00 l FUGAX FUGAX 00:01: [place] Active 06/25/2017 [facility] [place] Strain of Strain of Problem 2017-11-22 Memoria left left 13:08:06 l quadriceps quadriceps He lise muscle, muscle, fascia and fascia and tendon, tendon, initial initial encounter encounter 11/22/2017 [facility] Contusion Contusion Problem 2017-11-22 Memoria of eyeball of eyeball 13:08:06 l and and [place] orbital orbital tissues, tissues, left eye, left eye, initial initial encounter encounter 11/22/2017 [facility] Abrasion Abrasion Problem 2017-11-22 Memoria of left of left 13:08:06 l little little [place] finger, finger, initial initial encounter encounter 11/22/2017 [facility] Abrasion, Abrasion, Problem 2017-11-22 Memoria left knee, left knee, 13:08:06 l initial initial [place] encounter encounter 11/22/2017 [facility] Epilepsy, Epilepsy, Problem 2017-11-22 Memoria unspecifie unspecifie 13:08:06 l d, not d, not [place] intractabl intractabl e, without e, without status status epilepticu epilepticu s s 11/22/2017 [facility] 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 Problem 2017-11-22 Memoria (current) (current) 13:08:06 l use of use of [place] anticoagul anticoagul ants ants 11/22/2017 [facility] Other fall Other Problem 2017-11-22 Memoria on same fall on 13:08:06 l level, same [place] initial level, encounter initial encounter 11/22/2017 [facility] No known No known Disease Unive rs active active ity of problems problems [facility] Detrusor Detrusor Problem Active 2022-08-16 Memoria and and 10:30:45 l sphincter sphincter Herm mauro dyssynergi dyssynergi a a (disorder) (disorder) Active Problem 08/16/2022 [facility] Incontinen Incontine Problem Active 2022-08-16 Memoria ce nce 10:30:45 l (finding) (finding) Herm mauro Active Problem 08/16/2022 [facility] Large Large Problem Active 2022-08-16 Memor ia prostate prostate 10:30:45 l (finding) (finding) Herm mauro Active Problem 08/16/2022 [facility] Lower Lower Problem Active 2022-08-16 Jean farooq urinary urinary 10:30:45 l tract tract [place] symptoms symptoms (finding) (finding) Active Problem 08/16/2022 [facility] Raised Raised Problem Active 2022-08-16 Mem oria prostate prostate 10:30:45 l specific specific Matthew n antigen antigen (finding) (finding) Active Problem 08/16/2022 Medical [facility] History of Past Illness Condition Condition Condition Status Onset Resolution Last Treating Co mments Source Name Details Category Date Date Treatment Clinician Date Laceration Problem 2017-11-22 2017-11-22 Memoria without Laceration 08-30 13:08:06 13:08:06 l foreign without 03:21: [place] body of foreign 54 oral body of cavity, oral initial cavity, encounter initial encounter 08/30/2017 11/22/2017 [facility] Unspecifie Unspecifi Problem 2017-11-22 2017-11-22 Memoria d fall, ed fall, 08-15 13:08:06 13:08:06 l initial initial 05:00: [place] encounter encounter 00 08/15/2017 11/22/2017 [facility] Pain in Pain in Problem 2017-11-22 2017-11-22 Memoria left hand left hand 08-15 13:08:06 13:08:06 l 08/15/2017 05:00: Matthew n 11/22/2017 00 [facility] Amaurosis Amaurosis Problem 2017-10-09 2017-10-09 Memoria fugax fugax 2-20 12:33:05 12:33:05 l 07/09/2017 05:24: Matthew banegas 10/09/2017 40 [facility] [place] Allergies, Adverse Reactions, Alerts Allergy Allergy Status Severity Reaction(s) Onset Inactive Treating Comm ents Source Name Type Date Date Clinician NO KNOWN Drug Active Univers ALLERGIE Class ity of S [facility] No Known No Known Active Memori a Medicati Medicati l on on [place] Allergcelio Allergie s s Social History Social Habit Start Date Stop Date Quantity Comments Source Exposure to 2022-05-11 2022-05-21 Not sure [facility] SARS-CoV-2 00:00:00 10:57:00 [facility] (event) [place] Social History 2022-04-30 2022-04-30 [facility] ervin 16:28:59 16:28:59 Alcohol intake 2021-11-17 2021-11-17 Current drinker Unive rsity of 00:00:00 00:00:00 of alcohol [facility] (finding) [place] Tobacco use and 2018-04-29 2018-04-29 Smokeless tobacco Un iversity of exposure 00:00:00 00:00:00 non-user [facility] Social History 2017-08-15 2017-08-15 [facility] ervin 13:47:42 13:47:42 Smoking Status Start Date Stop Date Source Tobacco smoking status [facility] Medications Ordered Filled Start Stop Current Ordering Indication Dosage Frequency Signature Comments Components Source Medication Medication Date Date Medication? Clinician (SIG) Name Name tamsulosin Yes 0.4 mg = 1 M emoria 0.4 mg oral 3-27 cap, PO, l capsule 14:10: Daily, Gamaliel Castro n 00 90 cap, 1 Refill(s), Pharmacy: [facility] #[id number], 182.88, cm, 03/20/22 14:42:00 CDT, Height, 112.472, kg, 03/20/22 14:42:00 CDT, Weight finasteride Yes 5 mg = 1 Me moria 5 mg oral 3-27 tab, PO, l tablet 14:10: Daily, # [place] 00 90 tab, 1 Refill(s), Pharmacy: [facility] #[id number], 182.88, cm, 03/20/22 14:42:00 CDT, Height, 112.472, kg, 03/20/22 14:42:00 CDT, Weight carbidopa-l Yes [id number] 1{tbl} Take 1 Univers evodopa-ent 1-02 tablet by ity of acapone 00:00: mouth in [place] (STALEVO 00 the Medical 200) morning Branch 50-200-200 and 1 mg per tablet in tablet the evening. levETIRAcet Yes [id number] 500mg Take 1 Univers am (KEPPRA) 1-02 tablet by ity of 500 mg 00:00: mouth in [place] tablet 00 the Medical morning Branch and 1 tablet in the evening. carbidopa-l Yes [id number] 1{tbl} Take 1 Univers evodopa-ent 1-02 tablet by ity of acapone 00:00: mouth in [place] (STALEVO 00 the Medical 200) morning Branch 50-200-200 and 1 mg per tablet in tablet the evening. levETIRAcet Yes [id number] 500mg Take 1 Univers am (KEPPRA) 1-02 tablet by ity of 500 mg 00:00: mouth in [place] tablet 00 the Medical morning Branch and 1 tablet in the evening. carbidopa-l Yes [id number] 1{tbl} Take 1 Univers evodopa-ent 1-02 tablet by ity of acapone 00:00: mouth in [place] (STALEVO 00 the Medical 200) morning Branch 50-200-200 and 1 mg per tablet in tablet the evening. levETIRAcet Yes [id number] 500mg Take 1 Univers am (KEPPRA) 1-02 tablet by ity of 500 mg 00:00: mouth in [place] tablet 00 the Medical morning Branch and 1 tablet in the evening. finasteride 2021-05 Yes 5 mg = 1 Me moria 5 mg oral 2-12 tab, PO, l tablet 15:30: Daily, # [place] 00 90 tab, 1 Refill(s), Pharmacy: [facility] #[id number], 182.88, cm, 03/20/22 14:42:00 CDT, Height, 112.472, kg, 03/20/22 14:42:00 CDT, Weight tamsulosin 2021-05 Yes 0.4 mg = 1 M emoria 0.4 mg oral 2-12 cap, PO, l capsule 15:30: Daily, # Matthew n 00 90 cap, 0 Refill(s), Pharmacy: [facility] #[id number], 182.88, cm, 03/20/22 14:42:00 CDT, Height, 112.472, kg, 03/20/22 14:42:00 CDT, Weight finasteride 2021-05 Yes 5 mg = 1 Me moria 5 mg oral 2-12 tab, PO, l tablet 15:30: Daily, # [place] 00 90 tab, 1 Refill(s), Pharmacy: [facility] #[id number], 182.88, cm, 03/20/22 14:42:00 CDT, Height, 112.472, kg, 03/20/22 14:42:00 CDT, Weight tamsulosin 2021-05 Yes 0.4 mg = 1 M emoria 0.4 mg oral 2-12 cap, PO, l capsule 15:30: Daily, # Matthew n 00 90 cap, 0 Refill(s), Pharmacy: [facility] #[id number], 182.88, cm, 03/20/22 14:42:00 CDT, Height, 112.472, kg, 03/20/22 14:42:00 CDT, Weight finasteride 2021-05 Yes 5mg Take 5 mg U nivers 5 mg tablet 2-12 by mouth ity of 00:00: every [place] [address] morning. Medical Branch finasteride 2021-05 Yes 5mg Take 5 mg U nivers 5 mg tablet 2-12 by mouth ity of 00:00: every [place] [address] morning. Medical Branch finasteride 2021-05 Yes 5mg Take 5 mg U nivers 5 mg tablet 2-12 by mouth ity of 00:00: every [place] [address] morning. Medical Branch levothyroxi 2021-05 Yes TAKE 1 Univ ers ne 25 mcg 1-16 TABLET BY ity o f tablet 00:00: MOUTH 00 EVERY Medical MORNING ON Branch AN EMPTY STOMACH memantine 2021-05 Yes 10mg Take 10 mg Un [place] 10 mg 1-16 by mouth ity of tablet 00:00: in the [place] morning Medical and 10 mg Branch in the evening. levothyroxi 2021-05 Yes TAKE 1 Univ ers ne 25 mcg 1-16 TABLET BY ity o f tablet 00:00: MOUTH [place] EVERY Medical MORNING ON Branch AN EMPTY STOMACH memantine 2021-05 Yes 10mg Take 10 mg Un [place] 10 mg 1-16 by mouth ity of tablet 00:00: in the [place] morning Medical and 10 mg Branch in the evening. levothyroxi 2021-05 Yes TAKE 1 Univ ers ne 25 mcg 1-16 TABLET BY ity o f tablet 00:00: MOUTH [place] EVERY Medical MORNING ON Branch AN EMPTY STOMACH memantine 2021-05 Yes 10mg Take 10 mg Un [place] 10 mg 1-16 by mouth ity of tablet 00:00: in the [place] morning Medical and 10 mg Branch in the evening. venlafaxine 2021-05 Yes 0 Memori a 75 mg oral 0-10 Refill(s) l capsule, 16:11: [place] extended 00 release valsartan 2021-05 Yes 0 Memoria 160 mg oral 0-10 Refill(s) l tablet 16:11: omeprazole 2021-05 Yes 0 Memoria 20 mg oral 0-10 Refill(s) l delayed 16:11: [place] 00 capsule levETIRAcet 2021-05 Yes 0 Memori a am 500 mg 0-10 Refill(s) l oral tablet 16:11: clopidogrel 2021-05 Yes 0 Memori a 75 mg oral 0-10 Refill(s) l tablet 16:11: cloNIDine 2021-05 Yes 0 Memoria 0.1 mg oral 0-10 Refill(s) l tablet 16:11: carbidopa-l 2021-05 Yes 0 Memori a evodopa 25 0-10 Refill(s) l mg-250 mg 16:11: [place] oral tablet 00 atorvastati 2021-05 Yes 0 Memori a n 40 mg 0-10 Refill(s) l oral tablet 16:11: [place] n amLODIPine 2021-05 Yes 0 Memoria 10 mg oral 0-10 Refill(s) l tablet 16:11: tamsulosin 2021-05 Yes 0 Memoria 0.4 mg oral 0-10 Refill(s) l capsule 16:11: venlafaxine 2021-05 Yes 0 Memori a 75 mg oral 0-10 Refill(s) l capsule, 16:11: extended 00 release valsartan 2021-05 Yes 0 Memoria 160 mg oral 0-10 Refill(s) l tablet 16:11: omeprazole 2021-05 Yes 0 Memoria 20 mg oral 0-10 Refill(s) l delayed 16:11: 00 capsule levETIRAcet 2021-05 Yes 0 Memori a am 500 mg 0-10 Refill(s) l oral tablet 16:11: clopidogrel 2021-05 Yes 0 Memori a 75 mg oral 0-10 Refill(s) l tablet 16:11: cloNIDine 2021-05 Yes 0 Memoria 0.1 mg oral 0-10 Refill(s) l tablet 16:11: carbidopa-l 2021-05 Yes 0 Memori a evodopa 25 0-10 Refill(s) l mg-250 mg 16:11: oral tablet 00 atorvastati 2021-05 Yes 0 Memori a n 40 mg 0-10 Refill(s) l oral tablet 16:11: amLODIPine 2021-05 Yes 0 Memoria 10 mg oral 0-10 Refill(s) l tablet 16:11: tamsulosin 2021-05 Yes 0 Memoria 0.4 mg oral 0-10 Refill(s) l capsule 16:11: cloNIDine Yes 1{tbl} Take 1 Univ ers 0.1 mg 7-18 tablet by ity of tablet 00:00: mouth. [address] cloNIDine Yes 1{tbl} Take 1 Univ ers 0.1 mg 7-18 tablet by ity of tablet 00:00: mouth. [address] cloNIDine Yes 1{tbl} Take 1 Univ ers 0.1 mg 7-18 tablet by ity of tablet 00:00: mouth. [address] carbidopa-l Yes 1{tbl} Take 1 [place] evodopa 7-12 tablet by ity of 25-250 mg 00:00: mouth. [place] per tablet 00 Medical Branch carbidopa-l 2021-0 Yes 1{tbl} Take 1 [place] evodopa 7-12 tablet by ity of 25-250 mg 00:00: mouth. [place] per tablet 00 Medical Branch carbidopa-l 2021-0 Yes 1{tbl} Take 1 [place] evodopa 7-12 tablet by ity of 25-250 mg 00:00: mouth. [place] per tablet 00 Medical Branch levETIRAcet 2021-0 Yes [id number] 500mg Take 1 Univers am (KEPPRA) 7- tablet by ity of 500 mg 00:00: mouth 2 [place] tablet 00 (two) Medical times Branch daily. carbidopa-l 2021-0 Yes [id number] 1{tbl} Take 1 Univers evodopa-ent 7- tablet by ity of acapone 00:00: mouth 2 [place] (STALEVO 00 (two) Medical 200) times Branch 50-200-200 daily. mg per tablet levETIRAcet 2021-0 Yes [id number] 500mg Take 1 Univers am (KEPPRA) 7- tablet by ity of 500 mg 00:00: mouth 2 [place] tablet 00 (two) Medical times Branch daily. carbidopa-l 2021-0 Yes [id number] 1{tbl} Take 1 Univers evodopa-ent 7- tablet by ity of acapone 00:00: mouth 2 [place] (STALEVO 00 (two) Medical 200) times Branch 50-200-200 daily. mg per tablet levETIRAcet 2021-0 Yes [id number] 500mg Take 1 Univers am (KEPPRA) 7- tablet by ity of 500 mg 00:00: mouth 2 [place] tablet 00 (two) Medical times Branch daily. carbidopa-l 2021-0 Yes [id number] 1{tbl} Take 1 Univers evodopa-ent 7-01 tablet by ity of acapone 00:00: mouth 2 [place] (STALEVO 00 (two) Medical 200) times Branch 50-200-200 daily. mg per tablet levETIRAcet 2021-0 Yes [id number] 500mg Take 1 Univers am (KEPPRA) 7-01 tablet by ity of 500 mg 00:00: mouth 2 [place] tablet 00 (two) Medical times Branch daily. carbidopa-l 2022-0 Yes [id number] 1{tbl} Take 1 Univers evodopa-ent 7-01 tablet by ity of acapone 00:00: mouth 2 [place] (STALEVO 00 (two) Medical 200) times Branch 50-200-200 daily. mg per tablet levETIRAcet 2-0 Yes [id number] 500mg Take 1 Univers am (KEPPRA) 7-01 tablet by ity of 500 mg 00:00: mouth 2 [place] tablet 00 (two) Medical times Branch daily. carbidopa-l 2022-0 Yes [id number] 1{tbl} Take 1 Univers evodopa-ent 7-01 tablet by ity of acapone 00:00: mouth 2 [place] (STALEVO 00 (two) Medical 200) times Branch 50-200-200 daily. mg per tablet levETIRAcet 2021-0 Yes [id number] 500mg Take 1 Univers am (KEPPRA) 7- tablet by ity of 500 mg 00:00: mouth 2 [place] tablet 00 (two) Medical times Branch daily. carbidopa-l 2-0 Yes [id number] 1{tbl} Take 1 Univers evodopa-ent 7-01 tablet by ity of acapone 00:00: mouth 2 [place] (STALEVO 00 (two) Medical 200) times Branch 50-200-200 daily. mg per tablet levETIRAcet 2-0 Yes [id number] 500mg Take 1 Univers am (KEPPRA) 7-01 tablet by ity of 500 mg 00:00: mouth 2 [place] tablet 00 (two) Medical times Branch daily. carbidopa-l 2022-0 Yes [id number] 1{tbl} Take 1 Univers evodopa-ent 7-01 tablet by ity of acapone 00:00: mouth 2 [place] (STALEVO 00 (two) Medical 200) times Branch 50-200-200 daily. mg per tablet levETIRAcet 2-0 Yes [id number] 500mg Take 1 Univers am (KEPPRA) 7-01 tablet by ity of 500 mg 00:00: mouth 2 [place] tablet 00 (two) Medical times Branch daily. carbidopa-l 2022-0 Yes [id number] 1{tbl} Take 1 Univers evodopa-ent 7- tablet by ity of acapone 00:00: mouth 2 [place] (STALEVO 00 (two) Medical 200) times Branch 50-200-200 daily. mg per tablet levETIRAcet Yes [id number] 500mg Take 1 Univers am (KEPPRA) 11-17 tablet by ity of 500 mg 00:00: mouth 2 [place] tablet 00 (two) Medical times Branch daily. carbidopa-l Yes [id number] 1{tbl} Take 1 Univers evodopa-ent 7- tablet by ity of acapone 00:00: mouth 2 [place] (STALEVO 00 (two) Medical 200) times Branch 50-200-200 daily. mg per tablet levETIRAcet Yes [id number] 500mg Take 1 Univers am (KEPPRA) 11-17 tablet by ity of 500 mg 00:00: mouth 2 [place] tablet (two) Medical times Branch daily. carbidopa-l Yes [id number] 1{tbl} Take 1 Univers evodopa-ent 7- tablet by ity of acapone 00:00: mouth 2 [place] (STALEVO 00 (two) Medical 200) times Branch 50-200-200 daily. mg per tablet levETIRAcet 2022- No [id number] 500mg Take 1 Univers am (KEPPRA) 11-17 tablet by it y of 500 mg 00:00: 00:00 mouth 2 [place] tablet 00 :00 (two) Medical times Branch daily. carbidopa-l 2022- No [id number] 1{tbl} Take 1 Univers evodopa-ent 11-17 tablet by it y of acapone 00:00: 00:00 mouth 2 [place] (STALEVO 00 :00 (two) Medical 200) times Branch 50-200-200 daily. mg per tablet levETIRAcet 2022- No [id number] 500mg Take 1 Univers am (KEPPRA) 11-17 tablet by it y of 500 mg 00:00: 00:00 mouth 2 [place] tablet 00 :00 (two) Medical times Branch daily. carbidopa-l 2021-0 3- No [id number] 1{tbl} Take 1 Univers evodopa-ent 11-17 tablet by it y of acapone 00:00: 00:00 mouth 2 [place] (STALEVO 00 :00 (two) Medical 200) times Branch 50-200-200 daily. mg per tablet clotrimazol 0 Yes Univer s e-betametha 6-15 ity of sone cream 00:00: [place] Medical Branch clotrimazol 2021-0 Yes Univer s e-betametha 6-15 ity of sone cream 00:00: [place] Medical Branch clotrimazol 2021-0 Yes Univer s e-betametha 6-15 ity of sone cream 00:00: [place] 00 Medical Branch clotrimazol 2021-0 Yes Univer s e-betametha 6-15 ity of sone cream 00:00: [place] Medical Branch clotrimazol 2021-0 Yes Univer s e-betametha 6-15 ity of sone cream 00:00: [place] 00 Medical Branch clotrimazol 2021-0 Yes Univer s e-betametha 6-15 ity of sone cream 00:00: [place] 00 Medical Branch clotrimazol 2021-0 Yes Univer s e-betametha 6-15 ity of sone cream 00:00: [place] 00 Medical Branch clotrimazol 2021-0 Yes Univer s e-betametha 6-15 ity of sone cream 00:00: [place] 00 Medical Branch clotrimazol 2021-0 Yes Univer s e-betametha 6-15 ity of sone cream 00:00: [place] 00 Medical Branch clotrimazol 2021-0 Yes Univer s e-betametha 6-15 ity of sone cream 00:00: [place] 00 Medical Branch clotrimazol 2021-0 Yes Univer s e-betametha 6-15 ity of sone cream 00:00: [place] 00 Medical Branch clotrimazol 2021-0 Yes Univer s e-betametha 6-15 ity of sone cream 00:00: [place] 00 Medical Branch clotrimazol 2-0 Yes Univer s e-betametha 6-15 ity of sone cream 00:00: [place] 00 Medical Branch acetaminoph 2022-0 Yes Univer s en-codeine 5-09 ity of 300-30 mg 00:00: [place] tablet 00 Medical Branch acetaminoph 2022-0 Yes Univer s en-codeine 5-09 ity of 300-30 mg 00:00: [place] tablet 00 Medical Branch acetaminoph 2022-0 Yes Univer s en-codeine 5-09 ity of 300-30 mg 00:00: [place] tablet 00 Medical Branch acetaminoph 2022-0 Yes Univer s en-codeine 5-09 ity of 300-30 mg 00:00: [place] tablet 00 Medical Branch acetaminoph 2022-0 Yes Univer s en-codeine 5-09 ity of 300-30 mg 00:00: [place] tablet 00 Medical Branch acetaminoph 2022-0 Yes Univyvette s en-codeine 5-09 ity of 300-30 mg 00:00: [place] tablet 00 Medical Branch acetaminoph 2022-0 Yes Univer s en-codeine 5-09 ity of 300-30 mg 00:00: [place] tablet 00 Medical Branch acetaminoph 2022-0 Yes Univyvette s en-codeine 5-09 ity of 300-30 mg 00:00: [place] tablet 00 Medical Branch acetaminoph 2022-0 Yes Univer s en-codeine 5-09 ity of 300-30 mg 00:00: [place] tablet 00 Medical Branch acetaminoph 2022-0 Yes Univer s en-codeine 5-09 ity of 300-30 mg 00:00: [place] tablet 00 Medical Branch acetaminoph 2022-0 Yes Univer s en-codeine 5-09 ity of 300-30 mg 00:00: [place] tablet 00 Medical Branch acetaminoph 2022-0 Yes Univer s en-codeine 5-09 ity of 300-30 mg 00:00: [place] tablet 00 Medical Branch acetaminoph 2022-0 Yes Univer s en-codeine 5-09 ity of 300-30 mg 00:00: [place] tablet 00 Medical Branch CARBIDOPA-L 2021-0 2021- No [id number] 1{tbl} TAKE 1 Univers EVODOPA 4-11-17 TABLET BY ity of 25-250 mg 00:00: 00:00 MOUTH 3 [place] per tablet 00 :00 (THREE) Medica l TIMES Branch DAILY. LEVETIRACET 202- No [id number] TAKE 1 Univers AM 250 mg 18 11-17 TABLET BY ity of tablet 00:00: 00:00 MOUTH 2 [place] 00 :00 TIMES Medical DAILY Branch clopidogreL 2020- Yes 75mg Take 1 Univ ers 75 mg 2-29 tablet by ity of tablet 00:00: mouth [place] 00 daily. Medical Branch clopidogreL 2020- Yes 75mg Take 1 Univ ers 75 mg 2-29 tablet by ity of tablet 00:00: mouth [place] 00 daily. Medical Branch clopidogreL 2020- Yes 75mg Take 1 Univ ers 75 mg 2-29 tablet by ity of tablet 00:00: mouth [place] 00 daily. Medical Branch clopidogreL 2020- Yes 75mg Take 1 Univ ers 75 mg 2-29 tablet by ity of tablet 00:00: mouth [place] 00 daily. Medical Branch clopidogreL 2020- Yes 75mg Take 1 Univ ers 75 mg 2-29 tablet by ity of tablet 00:00: mouth [place] 00 daily. Medical Branch clopidogreL 2020- Yes 75mg Take 1 Univ ers 75 mg 2-29 tablet by ity of tablet 00:00: mouth [place] 00 daily. Medical Branch clopidogreL 2020- Yes 75mg Take 1 Univ ers 75 mg 2-29 tablet by ity of tablet 00:00: mouth [place] 00 daily. Medical Branch clopidogreL 2020- Yes 75mg Take 1 Univ ers 75 mg 2-29 tablet by ity of tablet 00:00: mouth [place] 00 daily. Medical Branch clopidogreL 2020- Yes 75mg Take 1 Univ ers 75 mg 2-29 tablet by ity of tablet 00:00: mouth [place] 00 daily. Medical Branch clopidogreL 2020- Yes 75mg Take 1 Univ ers 75 mg 2-29 tablet by ity of tablet 00:00: mouth [place] 00 daily. Medical Branch clopidogreL 2020- Yes 75mg Take 1 Univ ers 75 mg 2-29 tablet by ity of tablet 00:00: mouth [place] 00 daily. Medical Branch clopidogreL 2020- Yes 75mg Take 1 Univ ers 75 mg 2-29 tablet by ity of tablet 00:00: mouth [place] 00 daily. Medical Branch clopidogreL 2020-1 Yes 75mg Take 1 Univ ers 75 mg 2-29 tablet by ity of tablet 00:00: mouth [place] 00 daily. Medical Branch atorvastati 2020-0 Yes 40mg Take 40 mg Univers n 40 mg 8-04 by mouth ity of tablet 08:39: at [place] 22 bedtime. Medical Branch atorvastati 2020-0 Yes 40mg Take 40 mg Univers n 40 mg 8-04 by mouth ity of tablet 08:39: at [place] 22 bedtime. Medical Branch atorvastati 2020-0 Yes 40mg Take 40 mg Univers n 40 mg 8-04 by mouth ity of tablet 08:39: at [place] [address] bedtime. Medical Branch atorvastati 2020-0 Yes 40mg Take 40 mg Univers n 40 mg 8-04 by mouth ity of tablet 08:39: at [place] [address] bedtime. Medical Branch atorvastati 2020-0 Yes 40mg Take 40 mg Univers n 40 mg 8-04 by mouth ity of tablet 08:39: at [place] [address] bedtime. Medical Branch atorvastati 2020-0 Yes 40mg Take 40 mg Univers n 40 mg 8-04 by mouth ity of tablet 08:39: at [place] [address] bedtime. Medical Branch atorvastati 2020-0 Yes 40mg Take 40 mg Univers n 40 mg 8-04 by mouth ity of tablet 08:39: at [place] [address] bedtime. Medical Branch atorvastati 2020-0 Yes 40mg Take 40 mg Univers n 40 mg 8-04 by mouth ity of tablet 08:39: at [place] [address] bedtime. Medical Branch atorvastati 2020-0 Yes 40mg Take 40 mg Univers n 40 mg 8-04 by mouth ity of tablet 08:39: at [place] [address] bedtime. Medical Branch atorvastati 2020-0 Yes 40mg Take 40 mg Univers n 40 mg 8-04 by mouth ity of tablet 08:39: at [place] [address] bedtime. Medical Branch atorvastati 2020-0 Yes 40mg Take 40 mg Univers n 40 mg 8-04 by mouth ity of tablet 08:39: at [place] [address] bedtime. Medical Branch atorvastati 2020-0 Yes 40mg Take 40 mg Univers n 40 mg 8-04 by mouth ity of tablet 08:39: at [place] [address] bedtime. Medical Branch atorvastati 2020-0 Yes 40mg Take 40 mg Univers n 40 mg 8-04 by mouth ity of tablet 08:39: at [place] 22 bedtime. Medical Branch hydroCHLORO 2020-0 Yes Univer s thiazide 6-01 ity of 12.5 mg 00:00: [place] tablet 00 Medical Branch escitalopra 2020-0 Yes Univer s m oxalate 6-01 ity of 10 mg 00:00: [place] tablet 00 Medical Branch hydroCHLORO 2020-0 Yes Univer s thiazide 6-01 ity of 12.5 mg 00:00: [place] tablet 00 Medical Branch escitalopra 2020-0 Yes Univer s m oxalate 6-01 ity of 10 mg 00:00: [place] tablet 00 Medical Branch hydroCHLORO 2020-0 Yes Univer s thiazide 6-01 ity of 12.5 mg 00:00: [place] tablet 00 Medical Branch escitalopra 2020-0 Yes Univer s m oxalate 6-01 ity of 10 mg 00:00: [place] tablet 00 Medical Branch hydroCHLORO 2020-0 Yes Univer s thiazide 6-01 ity of 12.5 mg 00:00: [place] tablet 00 Medical Branch escitalopra 2020-0 Yes Univer s m oxalate 6-01 ity of 10 mg 00:00: [place] tablet 00 Medical Branch hydroCHLORO 2020-0 Yes Univer s thiazide 6-01 ity of 12.5 mg 00:00: [place] tablet 00 Medical Branch escitalopra 2020-0 Yes Univer s m oxalate 6-01 ity of 10 mg 00:00: [place] tablet 00 Medical Branch hydroCHLORO 2020-0 Yes Univer s thiazide 6-01 ity of 12.5 mg 00:00: [place] tablet 00 Medical Branch escitalopra 2020-0 Yes Univer s m oxalate 6-01 ity of 10 mg 00:00: [place] tablet 00 Medical Branch hydroCHLORO 2020-0 Yes Univer s thiazide 6-01 ity of 12.5 mg 00:00: [place] tablet 00 Medical Branch escitalopra 2020-0 Yes Univer s m oxalate 6-01 ity of 10 mg 00:00: [place] tablet 00 Medical Branch hydroCHLORO 2020-0 Yes Univer s thiazide 6-01 ity of 12.5 mg 00:00: [place] tablet 00 Medical Branch escitalopra 2020-0 Yes Univer s m oxalate 6-01 ity of 10 mg 00:00: [place] tablet 00 Medical Branch hydroCHLORO 2020-0 Yes Univer s thiazide 6-01 ity of 12.5 mg 00:00: [place] tablet 00 Medical Branch escitalopra 2020-0 Yes Univer s m oxalate 6-01 ity of 10 mg 00:00: [place] tablet 00 Medical Branch hydroCHLORO 2020-0 Yes Univer s thiazide 6-01 ity of 12.5 mg 00:00: [place] tablet 00 Medical Branch escitalopra 2020-0 Yes Univer s m oxalate 6-01 ity of 10 mg 00:00: [place] tablet 00 Medical Branch hydroCHLORO 2020-0 Yes Univer s thiazide 6-01 ity of 12.5 mg 00:00: [place] tablet 00 Medical Branch escitalopra 2020-0 Yes Tuckerer s m oxalate 6-01 ity of 10 mg 00:00: [place] tablet 00 Medical Branch hydroCHLORO 2020-0 Yes Tucke[place] s thiazide 6-01 ity of 12.5 mg 00:00: [place] tablet 00 Medical Branch escitalopra 2020-0 Yes Tuckerer s m oxalate 6-01 ity of 10 mg 00:00: [place] tablet 00 Medical Branch hydroCHLORO 2020-0 Yes Univer s thiazide 6-01 ity of 12.5 mg 00:00: [place] tablet 00 Medical Branch escitalopra 2020-0 Yes [place] s m oxalate 6-01 ity of 10 mg 00:00: [place] tablet 00 Medical Branch ranitidine 2018-0 Yes Univers 150 mg 8-22 ity of tablet 00:00: [place] 00 [facility] Branch ranitidine 2018-0 Yes Univers 150 mg 8-22 ity of tablet 00:00: [place] [facility] ranitidine 2018-0 Yes Univers 150 mg 8-22 ity of tablet 00:00: [place] 00 [facility] Branch ranitidine 2018-0 Yes Univers 150 mg 8-22 ity of tablet 00:00: [place] [facility] ranitidine 2018-0 Yes Univers 150 mg 8-22 ity of tablet 00:00: [place] [facility] Branch ranitidine 2018-0 Yes Univers 150 mg 8-22 ity of tablet 00:00: [place] 00 Medical Branch ranitidine 2018-0 Yes Univers 150 mg 8-22 ity of tablet 00:00: [place] [facility] ranitidine 2018-0 Yes Univers 150 mg 8-22 ity of tablet 00:00: [place] [facility] ranitidine 2018-0 Yes Univers 150 mg 8-22 ity of tablet 00:00: [place] [facility] ranitidine 2018-0 Yes Univers 150 mg 8-22 ity of tablet 00:00: [place] [facility] ranitidine 2017-0 Yes Univers 150 mg 8-22 ity of tablet 00:00: [place] [facility] ranitidine 2017-0 Yes Univers 150 mg 8-22 ity of tablet 00:00: [place] [facility] ranitidine 2018-0 Yes Univers 150 mg 8-22 ity of tablet 00:00: [place] [facility] losartan 50 2018-0 Yes Univer s mg tablet 8- ity of 00:00: [place] [facility] losartan 50 2018-0 Yes Univer s mg tablet 8- ity of 00:00: [place] [facility] losartan 50 2018-0 Yes Univer s mg tablet 8- ity of 00:00: [place] [address] Medical Branch losartan 50 2018-0 Yes Univer s mg tablet 8- ity of 00:00: [place] [address] Medical Branch losartan 50 2018-0 Yes Univer s mg tablet 8- ity of 00:00: [place] [address] Medical Branch losartan 50 2018-0 Yes Univer s mg tablet 8- ity of 00:00: [place] [facility] losartan 50 2018-0 Yes Univer s mg tablet 8 ity of 00:00: [place] [facility] losartan 50 2018-0 Yes Univer s mg tablet 8- ity of 00:00: [place] [facility] losartan 50 2018-0 Yes Univer s mg tablet 8- ity of 00:00: [place] [facility] losartan 50 2018-0 Yes Univer s mg tablet 8- ity of 00:00: [place] [address] Medical Branch losartan 50 2018-0 Yes Univer s mg tablet 8- ity of 00:00: [place] [facility] losartan 50 2018-0 Yes Univer s mg tablet 8- ity of 00:00: [place] [facility] losartan 50 2018-0 Yes Univer s mg tablet 8-03 ity of 00:00: [place] [address] Medical Branch Acetaminoph 2018-0 No 1 tab, PO, Memoria en 300 MG / 3-30 Q4H, PRN l Codeine 05:09: Pain, X 7 Danielle nn Phosphate 00 day, # 42 30 MG Oral tab, 0 Tablet Refill(s) [Tylenol with Codeine #3] Acetaminoph No 1 tab, PO, Memoria en 300 MG / 3-30 Q4H, PRN l Codeine 05:09: Pain, X 7 Danielle nn Phosphate 00 day, # 42 30 MG Oral tab, 0 Tablet Refill(s) [Tylenol with Codeine #3] Morphine No Notes: Memoria 3- (Same l 23:04: as:MORPhin [place] 00 e Sulfate) Morphine No Notes: Memoria 3- (Same l 23:04: as:MORPhin [place] 00 e Sulfate) Ibuprofen No 600 mg, Memor ia 08-15 Route: PO, l 22:52: ONCE, [place] 00 Dosing Weight 115.455, kg, Priority: STAT, Start date: 08/15/17 17:52:00 CDT, Stop date: 08/15/17 17:52:00 CDT Ibuprofen No 600 mg, Memor ia 08-15 Route: PO, l 22:52: ONCE, Dosing Weight 115.455, kg, Priority: STAT, Start date: 08/15/17 17:52:00 CDT, Stop date: 08/15/17 17:52:00 CDT Acetaminoph 0 No 975 mg, Mem oria en 08-15 Route: PO, l 16:44: Drug form: [place] 00 TAB, ONCE, Dosing Weight 115.455, kg, Priority: STAT, Start date: 08/15/17 11:44:00 CDT, Stop date: 08/15/17 11:44:00 CDT Acetaminoph 0 No 975 mg, Mem oria en 08-15 Route: PO, l 16:44: Drug form: [place] 00 TAB, ONCE, Dosing Weight 115.455, kg, Priority: STAT, Start date: 08/15/17 11:44:00 CDT, Stop date: 08/15/17 11:44:00 CDT Morphine No Notes: Memoria 3- (Same l 13:49: as:MORPhin [place] 00 e Sulfate) Ondansetron No Notes: Jean farooq 3-29 (Same as: l 13:49: Zofran) [place] 00 MEDICATION WASTE Product Size: 4 mg Product Wasted: ___ mg Morphine No Notes: Memoria 3-29 (Same l 13:49: as:MORPhin [place] 00 e Sulfate) Ondansetron No Notes: Jean farooq 3-29 (Same as: l 13:49: Zofran) [place] 00 MEDICATION WASTE Product Size: 4 mg Product Wasted: ___ mg Saline No Notes: Memoria Flush 0.9% 3-29 Same as: l 13:46: BD [place] 00 Posiflush Sterile Saline No Notes: [facility]oria Flush 0.9% 3-29 Same as: l 13:46: BD [place] 00 Posiflush Sterile Immunizations Ordered Filled Immunization Date Status Comments Sour e Immunization Name Name SARS-COV-2 COVID-19 2020-07-13 Completed Unive rsity of MODERNA VACCINE 00:00:00 [place] [facility] SARS-COV-2 COVID-19 2020-07-13 Completed Unive rsity of MODERNA VACCINE 00:00:00 [place] [facility] SARS-COV-2 COVID-19 2020-07-13 Completed Unive rsity of MODERNA VACCINE 00:00:00 [place] [facility] SARS-COV-2 COVID-19 2020-07-13 Completed Unive rsity of MODERNA 12+ YRS 00:00:00 [place] [facility] ical VACCINE Branch SARS-COV-2 COVID-19 2020-07-13 Completed Unive rsity of MODERNA 12+ YRS 00:00:00 [place] [facility] ical VACCINE Branch SARS-COV-2 COVID-19 2020-07-13 Completed Unive rsity of MODERNA 12+ YRS 00:00:00 [place] [facility] ical VACCINE Branch SARS-COV-2 COVID-19 2020-07-13 Completed Unive rsity of MODERNA 12+ YRS 00:00:00 [place] [facility] ical VACCINE Branch SARS-COV-2 COVID-19 2020-07-13 Completed Unive rsity of MODERNA 12+ YRS 00:00:00 [place] [facility] ical VACCINE Branch SARS-COV-2 COVID-19 2020-07-13 Completed Unive rsity of MODERNA 12+ YRS 00:00:00 [place] [facility] ical VACCINE Branch SARS-COV-2 COVID-19 2020-07-13 Completed Unive rsity of MODERNA 12+ YRS 00:00:00 [place] [facility] ical VACCINE Branch SARS-COV-2 COVID-19 2020-07-13 Completed Unive rsity of MODERNA 12+ YRS 00:00:00 [place] [facility] ical VACCINE Branch SARS-COV-2 COVID-19 2020-07-13 Completed Unive rsity of MODERNA 12+ YRS 00:00:00 [place] [facility] ical VACCINE Branch SARS-COV-2 COVID-19 2020-07-13 Completed Unive rsity of MODERNA 12+ YRS 00:00:00 [place] [facility] ical VACCINE Branch SARS-COV-2 COVID-19 2020-06-15 Completed Unive rsity of MODERNA VACCINE 00:00:00 [place] [facility] SARS-COV-2 COVID-19 2020-06-15 Completed Unive rsity of MODERNA VACCINE 00:00:00 [place] [facility] SARS-COV-2 COVID-19 2020-06-15 Completed Unive rsity of MODERNA VACCINE 00:00:00 [place] [facility] SARS-COV-2 COVID-19 2020-06-15 Completed Unive rsity of MODERNA 12+ YRS 00:00:00 [place] [facility] ical VACCINE Branch SARS-COV-2 COVID-19 2020-06-15 Completed Unive rsity of MODERNA 12+ YRS 00:00:00 [place] [facility] ical VACCINE Branch SARS-COV-2 COVID-19 2020-06-15 Completed Unive rsity of MODERNA 12+ YRS 00:00:00 [place] [facility] ical VACCINE Branch SARS-COV-2 COVID-19 2020-06-15 Completed Unive rsity of MODERNA 12+ YRS 00:00:00 [place] [facility] ical VACCINE Branch SARS-COV-2 COVID-19 2020-06-15 Completed Unive rsity of MODERNA 12+ YRS 00:00:00 [place] [facility] ical VACCINE Branch SARS-COV-2 COVID-19 2020-06-15 Completed Unive rsity of MODERNA 12+ YRS 00:00:00 [place] [facility] ical VACCINE Branch SARS-COV-2 COVID-19 2020-06-15 Completed Unive rsity of MODERNA 12+ YRS 00:00:00 [place] [facility] ical VACCINE Branch SARS-COV-2 COVID-19 2020-06-15 Completed Unive rsity of MODERNA 12+ YRS 00:00:00 [place] [facility] ical VACCINE Branch SARS-COV-2 COVID-19 2020-06-15 Completed Unive rsity of MODERNA 12+ YRS 00:00:00 [place] [facility] ical VACCINE Branch SARS-COV-2 COVID-19 2020-06-15 Completed Unive rsity of MODERNA 12+ YRS 00:00:00 [place] [facility] ical VACCINE Branch Vital Signs Vital Name Observation Time Observation Value Comments Source Systolic blood 2022-05-21 17:08:00 109 mm[Hg] Univer sity of pressure [facility] Diastolic blood 2022-05-21 17:08:00 65 mm[Hg] Unive rsity of pressure [facility] Heart rate 2022-05-21 17:08:00 82 /min Universi ty [facility] Body height 2022-05-21 17:08:00 182.9 cm Universi [facility] Body weight 2022-05-21 17:08:00 112.492 kg Univers ty [facility] BMI 2022-05-21 17:08:00 33.63 kg/m2 [facility] Oxygen saturation in 2022-05-21 17:08:00 96 /min [facility] Arterial blood by [facility] Pulse oximetry Branch Systolic blood 2021-11-17 17:02:00 130 mm[Hg] Univer sity of pressure [facility] Diastolic blood 2021-11-17 17:02:00 80 mm[Hg] Unive rsity of pressure [facility] Body height 2021-11-17 17:02:00 182.9 cm Universi ty [facility] Body weight 2021-11-17 17:02:00 [facility] 2021-11-17 17:02:00 33.50 kg/m2 [facility] Height 2022-03-20 19:42:00 6 [facility]_i[facility] 2022-03-20 19:42:00 [facility] [place] BMI Calculated 2022-03-20 19:42:00 Memori al [place] Height 2022-02-26 16:10:00 182.88 cm [facility] [place] Weight 2022-02-26 16:10:00 [facility] [place] BMI Calculated 2022-02-26 16:10:00 Memori al [place] Respitory Rate 2017-08-16 05:00:00 Memori al [place] Systolic (mm Hg) 2017-08-16 05:00:00 Jean rial [place] Diastolic (mm Hg) 2017-08-16 05:00:00 Mem orial [place] Temperature Oral (F) 2017-08-16 04:00:00 98.1 F [facility] [place] Systolic (mm Hg) 2017-08-16 04:00:00 Jean rial [place] Diastolic (mm Hg) 2017-08-16 04:00:00 Mem orial [place] Respitory Rate 2017-08-16 04:00:00 Memori al [place] Respitory Rate 2017-08-16 03:00:00 Memori al [place] Systolic (mm Hg) 2017-08-16 03:00:00 Jean rial [place] Diastolic (mm Hg) 2017-08-16 03:00:00 Mem orial [place] Temperature Oral (F) 2017-08-16 01:37:00 97.9 F [facility] [place] Temperature Oral (F) 2017-08-15 23:39:00 97.8 F [facility] [place] Heart Rate 2017-08-15 13:45:00 [facility] [place] BMI Calculated 2017-08-15 13:31:00 Memori al [place] Weight 2017-08-15 13:31:00 [facility] [place] Heart Rate 2017-08-15 13:31:00 [facility] [place] Height 2017-08-15 13:31:00 182.88 cm [facility] [place] Procedures Procedure Date / Time Performing Clinician Source Performed Complex uroflowmetry (eg, 2022-07-13 16:26[facility]) Measurement of post-voiding 2022-07-13 16:26:00 [facility] residual urine and/or bladder capacity by ultrasound, non-imaging CONSENT/REFUSAL FOR 2022-05-21 16:57:44 Doctor Unassigned, [facility] DIAGNOSIS AND TREATMENT [place] [facility] Complex cystometrogram (ie, 2022-04-30 15:30:00 [facility] [place] calibrated electronic equipment); with voiding pressure studies (ie, bladder voiding pressure), any technique Complex uroflowmetry (eg, 2022-04-30 15:30:00 [place] migdalia Penaloza calibrated electronic equipment) Electromyography studies 2022-04-30 15:30:00 [facility] orimarcella Penaloza (EMG) of anal or urethral sphincter, other than needle, any technique Voiding pressure studies, 2022-04-30 15:30:00 [place]j migdalia Penaloza intra-abdominal (ie, rectal, gastric, intraperitoneal) (List separately in addition to code for primary procedure) Cystourethroscopy (separate 2022-03-20 22:08:00 [facility] [place] procedure) Measurement of post-voiding 2022-03-20 20:55:00 Keily Penaloza residual urine and/or bladder capacity by ultrasound, non-imaging REFERRAL- REQUEST/RESPONSE 2022-01-29 05:01:00 Doctor Unassigned , [facility] [place] [facility] 2021-12-05 05:01:00 Doctor Unassigned, [facility] [facility] Excision of shoulder joint Memjese ial [place] Excision of joint of foot Maame al [place] Encounters Start End Encounter Admission Attending Care Care Encounter Source Date/Time Date/Time Type Type Clinicians Facility Department ID 2023-05-21 2023-05-21 Outpatient YEMI CHAUDHARI [facility] [id number] [facility] 11:00:00 11:00:00 YEMI MCKEON [facility] 2022-11-12 2022-11-12 [facility] [id number] Memoria 09:00:00 09:00:00 10 roxanne Penaloza 2022-11-02 2022-11-02 Outpatient CELIO CELIO [id number] Memoria 09:30:00 09:30:00 11 roxanne Penaloza 2022-09-27 2022-09-27 Telephone Estela [facility] 1.2.840.114 [id number] [facility] 00:00:00 00:00:00 [facility] [id number] [facility] [id number] Servando as MEETA?BLEA [id number] [place] jovani [address] MEDICAL OFFICE BUILDING 2022-08-13 2022-08-14 Outpatient MHIE [facility] [id number] Memoria 13:30:00 04:59:59 Specialty 06 [facility] Keo wade Warner 2022-08-13 2022-08-13 Outpatient RONY [facility]MG [facility] [id number] 08:30:00 23:59:59 Ariela L 06 2022-08-13 2022-08-13 Outpatient MHIE [facility] [id number] Memoria 08:30:00 08:30:00 06 roxanne Penaloza 2022-07-30 2022-07-30 Ambulatory MHIE [facility] [id number] Memoria 16:30:00 16:30:00 Pre-Reg Urology 08 roxanne Santos nn Time Share 2022-07-30 2022-07-30 Outpatient MHIE [facility]IE [id number] Memoria 15:00:00 15:00:00 08 roxanne Penaloza 2022-07-30 2022-07-30 Outpatient MHIE MHIE [id number] Memoria 13:30:00 13:30:00 09 roxanne Penaloza 2022-07-30 2022-07-30 Outpatient VISIT, [facility] [id number] 11:30:00 11:30:00 NURSE UAVITALIY 08 2022-07-16 2022-07-16 Outpatient MHIE [facility] [id number] Memoria 09:00:00 09:00:00 06 roxanne Penaloza 2022-07-13 2022-07-14 Outpatient MHIE [facility] [id number] Memoria 16:00:00 05:59:59 Urology 07 roxanne Santos nn Time Share 2022-07-13 2022-07-13 Outpatient Shruthi, [facility] [id number] 10:00:00 23:59:59 Ariela L 07 2022-07-13 2022-07-13 Outpatient MHIE [facility] [id number] Memoria 10:00:00 10:00:00 07 roxanne Penaloza 2022-05-21 2022-05-21 Outpatient YEMI CHAUDHARI [facility] [id number] [facility] 11:00:00 12:03:22 [facility] 2022-05-21 Office Estela [facility] 1.2.840.114 [id number] Univers 11:00:00 12:03:22 Visit [facility] [id number] [facility] [id number] Servando as MEETA?BLEA [id number] [place]j dic[address] MEDICAL OFFICE BUILDING 2022-05-21 2022-05-21 Orders Doctor TROY 1.2.840.114 [id number] Univers 00:00:00 00:00:00 Only Unassigned, ROSIO 350.1.13.[address] [place] [facility] [id number] Servando as [id number] [address] 2022-04-30 2022-05-01 Outpatient MHIE [facility] Multi [id number] Memoria 14:45:00 05:59:59 Specialty 05 l [facility] 2022-04-30 2022-05-01 Outpatient MHIE [facility] Multi [id number] Memoria 14:45:00 05:59:59 Specialty 05 l [facility] 2022-04-30 2022-04-30 Outpatient RONY HawkinsMG [facility] [id number] 08:45:00 23:59:59 Ariela L 05 2022-04-30 2022-04-30 Ambulatory MHIE [facility] Multi [id number] Memoria 17:00:00 17:00:00 Pre-Reg Specialty 04 l Clinic [facility] 2022-04-30 2022-04-30 Ambulatory MHIE [facility] Multi [id number] Memoria 17:00:00 17:00:00 Pre-Reg Specialty 04 l Clinic [facility] 2022-04-30 2022-04-30 Outpatient MHIE [facility] [id number] Memoria 11:00:00 11:00:00 04 [place] 2022-04-30 2022-04-30 Outpatient RONY [facility]MG [facility] [id number] 11:00:00 11:00:00 Ariela L 04 2022-04-30 2022-04-30 Outpatient MHIE [facility] [id number] Memoria 08:45:00 08:45:00 05 roxanne Penaloza 2022-04-30 2022-04-30 Telephone Estela [facility] 1.2.840.114 [id number] Univers 00:00:00 00:00:00 [facility] 350..13.10 [facility] [id number] Servando as MEETA?BLEA [id number] Nj jovani [address] OFFICE BUILDING 2022-04-17 2022-04-18 Outpatient MHIE MG [id number] Memoria 17:30:00 05:59:59 Urology 03 roxanne Hodges Danielle [facility] 2022-04-17 2022-04-18 Outpatient MHIE [id number] Memoria 17:30:00 05:59:59 Urology 03 roxanne Hodges Danielle [facility] 2022-04-17 2022-04-17 Outpatient Shruthi [facility] [id number] 11:30:00 23:59:59 Ariela L 2022-04-17 2022-04-17 Outpatient KELLEY BENSON [id number] Memoria 11:30:00 11:30:00 03 roxanne Penaloza 2022-03-20 2022-03-21 [place] [id number] Memoria 19:30:00 04:59:59 r Urology 02 roxanne Cantora Time Share 2022-03-20 2022-03-21 [place] [id number] Memoria 19:30:00 04:59:59 r Urology 02 roxanne Hodges Danielle Time Share 2022-03-20 2022-03-20 Outpatient Shruthi, [facility] [id number] 14:30:00 23:59:59 Ariela L 02 2022-03-20 2022-03-20 Outpatient RONYIE IE [id number] Memoria 14:30:00 14:30:00 02 roxanne Penaloza 2022-03-15 2022-03-15 Telephone Estela MTSMITHA 1.2.840.114 [id number] Univers 00:00:00 00:00:00 [facility] 350..13.10 [facility] [id number] Servando as MEETA?BLEA [id number] [address] OFFICE [facility] 2022-02-26 2022-02-27 Outpatient nullFlavo [facility] Multi 61 [id number] Memoria 16:00:00 04:59:59 r Specialty 01 l [facility] Keo Mendoza 2022-02-26 2022-02-27 Outpatient nullFlavo [facility] Multi 61 [id number] Memoria 16:00:00 04:59:59 r Specialty 01 l [facility] Keo Mendoza 2022-02-26 2022-02-26 Outpatient Staller, [facility] [id number] 11:00:00 23:59:59 Ariela L 2022-02-26 2022-02-26 Outpatient IE IE [id number] Memoria 11:00:00 11:00:00 01 roxanne Penaloza 2022-02-16 2022-02-16 Telephone [facility] 1.2.840.114 [id number] Univers 00:00:00 00:00:00 [facility] 350.1.13.10 ity of [place] 4.2.7.2.686 Servando as MEETA?BLEA [id number] [address] OFFICE [facility] 2022-02-16 2022-02-16 Telephone [facility] 1.2.840.114 [id number] Univers 00:00:00 00:00:00 [facility] 350.1.13.10 ity of [place] 4.2.7.2.686 Servando as MEETA?BLEA [id number] [address] OFFICE [facility] 2022-02-07 2022-02-07 Telephone [facility] 1.2.840.114 [id number] Univers 00:00:00 00:00:00 [facility] 350.1.13.10 ity of [place] 4.2.7.2.686 Servando as MEETA?BLEA [id number] [address] OFFICE [facility] 2022-01-29 2022-01-29 Orders Doctor SIMMONS 1.2.840.114 [id number] Univers 00:00:00 00:00:00 Only Unassigned, ROSIO 350.1.13.10 ity of [place] [facility] 4.2.7.2.686 Servando as [id number] [address] 2022-01-15 2022-01-15 Telephone Estela [facility] 1.2.840.114 [id number] Univers 00:00:00 00:00:00 [facility] 350.1.13.10 ity of [place] 4.2.7.2.686 Servando as MEETA?BLEA [id number] [address] MEDICAL OFFICE [facility] 2021-12-05 2021-12-05 Orders Doctor TROY 1.2.840.114 [id number] Univers 00:00:00 00:00:00 Only Unassigned, ROSIO 350.1.13.10 ity of [place] [facility] 4.2.7.2.686 Servando as [id number] [address] 2021-11-17 2021-11-17 Office Estela [facility] 1.2.840.114 [id number] Univers 11:00:00 12:19:41 Visit [facility] 350.1.13.10 [facility] 4.2.7.2.686 Servando as MEETA?BLEA [id number] [address] OFFICE [facility] 2021-11-17 2021-11-17 Outpatient YEMI CHAUDHARI [facility] [id number] Univers 11:00:00 12:19:41 YEIM MCKEON celia [facility] 2021-11-17 2021-11-17 Outpatient YEMI CHAUDHARI [facility] [id number] Univers 11:00:00 11:00:00 YEMI MCKEON ann [facility] 2021-11-13 2021-11-13 Ambulatory nullFlavo [facility] Multi 61 [id number] Memoria 16:00:00 16:00:00 Pre-Reg r Specialty 00 l Clinic [facility] 2021-11-13 2021-11-13 Ambulatory nullFlavo [facility] Multi 61 [id number] Memoria 16:00:00 16:00:00 Pre-Reg r Specialty 00 l [facility] 2021-11-13 2021-11-13 Outpatient MHIE MHIE [id number] Memoria 11:00:00 11:00:00 00 roxanne Penaloza 2021-11-13 2021-11-13 Outpatient Shruthi [facility] [id number] 11:00:00 11:00:00 Ariela Alves 2021-09-26 2021-09-26 Outpatient R CONSUELO [facility] [id number] Univers 16:00:00 16:00:00 POWER valenciacelia [facility] 2021-09-19 2021-09-19 Ancillary Pam Wright [facility] 1.2.840 .114 [id number] Univers 16:00:00 16:45:00 Visit Power Cordero [place] 350.1.13.10 [place] [id number] [place] dical NAL [address] [facility] 2021-09-12 2021-09-12 Ancillary Gia Wright [facility] 1..840. 114 [id number] Univers 16:00:00 16:45:00 Visit Power Cordero ALLI 350.1.13.10 [place] [id number] [place] dical NAL 179 [facility] 2021-09-12 2021-09-12 Outpatient Pam CORDERO [facility] [id number] Univers 16:00:00 16:00:00 POWER juarez [facility] 2021-09-07 2021-09-08 Ancillary Trinity Blandon [facility] 1 .2.840.114 [id number] Univers 15:15:00 16:17:25 Visit Power Cordero Roxanne CARSON [id number] it[id number] [id number] [place] dical NAL 179 [facility] 2021-09-06 2021-09-06 Francisco Mckeon [facility] 1.2.840.114 [id number] Univers 00:00:00 00:00:00 Yemi CARSON [id number] [id number] [phone] [place] dicmarcella [address] 2021-09-04 2021-09-04 Outpatient R CONSUELO [facility] [id number] Univers 15:15:00 15:15:00 POWER [facility] 2021-08-17 2021-08-17 Office Fish Le [facility] 1.2.840.114 [id number] Univers 11:00:00 12:41:58 Visit HEALTH [id number] [id number] [id number] [address] OFFICE BUILDING 2021-08-17 2021-08-17 Outpatient FISH MCBRIDE [facility] [id number] Univers 11:00:00 12:41:58 ity [facility] 2021-08-17 2021-08-17 Outpatient FISH MCBRIDE [facility] [id number] Univers 11:00:00 11:00:00 ity [facility] 2021-08-16 2021-08-16 Francisco Mckeon [facility] [id number] Univers 00:00:00 00:00:00 [facility] HEALTH [id number] ity of [place] [id number] Servando as MEETA?BLEA [phone] [address] MEDICAL OFFICE BUILDING 2021-08-11 2021-08-11 Outpatient FISH MCBRIDE [facility] [id number] Univers 16:30:00 16:30:00 ity [facility] 2021-06-05 2021-06-05 FRANCIS Watts [id number] Univers 00:00:00 00:00:00 Yemi Gene HEALTH 350.1.13.10 ity of [facility] 4.[place] [id number] [address] 2021-05-24 2021-05-24 Outpatient YEMI CHAUDHARI [facility] [id number] Univers 10:53:40 23:59:00 [facility] 2021-05-24 [facility] [id number] Univers 10:53:40 23:59:00 Encounter Yemi CARSON 350.1.13.10 it[place] of [place] [id number] [facility] [address] 2021-05-16 2021-05-16 [facility] 1.2.840.114 [id number] Univers 00:00:00 00:00:00 Yemi Logan [facility] 350.1.13.10 ity of [place] 4.2.7.2.686 Servando as MEETA?BLEA [phone] [address] MEDICAL OFFICE [facility] 2021-05-09 2021-05-09 Outpatient YEMI CHAUDHARI [facility] [id number] Univers 11:00:00 11:00:00 ESTELA [facility] 2021-05-08 2021-05-08 Office [facility] 1.2.840.114 [id number] Univers 11:00:00 12:00:16 Visit Yemi SRINIVASAN 350.1.13.10 ity of [place] 4.2.7.2.686 Servando as MEETA?BLEA [phone] [address] MEDICAL OFFICE [facility] 2021-05-08 2021-05-08 Outpatient YEIM CHAUDHARI [facility] [id number] Univers 11:00:00 12:00:16 YEMI MCKEON [facility] 2021-05-08 2021-05-08 Outpatient YEMI CHAUDHARI [facility] [id number] Univers 11:00:00 11:00:00 YEMI MCKEON [facility] 2021-05-08 2021-05-08 Orders Doctor SIMMONS 1.2.840.114 [id number] Univers 00:00:00 00:00:00 Only Unassigned, ROSIO 350.1.13.[address] [facility] 4.2.7.2.686 Servando as [phone] [facility] [address] 2021-05-08 2021-05-08 Telephone Estela [facility] [id number] Univers 00:00:00 00:00:00 Yemi [facility].1.13.[address] [facility] 4.2.7.2.686 Servando as MEETA?BLEA [id number] [place] [address] MEDICAL OFFICE BUILDING 2021-05-04 2021-05-04 Outpatient GROUP, MUNA TORRES [id number] [place] 00:00:00 00:00:00 MUNA benson 2021-02-14 2021-02-14 [facility] 1.2.840.114 [id number] Univers 00:00:00 00:00:00 Yemi [facility] 350.1.13.10 ity [facility] 4.2.7.2.[place] [phone] [address] 2020-10-14 2020-10-14 Outpatient YEMI CHAUDHARI [facility] [id number] Univers 10:40:00 10:40:00 YEMI MCKEON [facility] 2020-10-10 2020-10-10 Outpatient YEMI CHAUDHARI [facility] [id number] Univers 13:56:38 23:59:00 YEMI MCKEON [facility] 2020-10-10 2020-10-10 Outpatient YEMI CHAUDHARI [facility] [id number] Univers 00:00:00 00:00:00 YEMI MCKEON celia [facility] 2020-09-26 2020-09-26 Outpatient YEMI CHAUDHARI [facility] [id number] Univers 00:00:00 00:00:00 YEMI MCKEON [facility] 2020-09-13 2020-09-13 Outpatient YEMI CHAUDHARI [facility] [id number] Univers 00:00:00 00:00:00 YEMI MCKEON [facility] 2020-09-06 2020-09-06 Outpatient YEMI CHAUDHARI [facility] [id number] Univers 15:40:00 15:40:00 YEMI MCKEON [facility] 2020-07-13 2020-07-13 Outpatient Pam CHARLES [facility] [id number] Univers 09:40:00 09:40:00 KAIA [facility] 2020-07-13 2020-07-13 Outpatient Pam [facility]LES [facility] [id number] Univers 09:40:00 09:20:49 KAIA celia [facility] 2020-06-15 2020-06-15 Outpatient Pam CHARLES [facility] [id number] Univers 09:30:00 09:30:00 KAIA celia [facility] 2020-05-27 2020-05-27 Outpatient YEMI CHAUDHARI [facility] [id number] Univers 10:08:41 10:11:00 ESTELA YEMI ann [facility] 2020-05-25 2020-05-25 Outpatient ESTELA, YEMI [facility] [id number] Univers 00:00:00 00:00:00 YEMI MCKEON ann [facility] 2020-05-06 2020-05-06 Outpatient Pam YEMI MCKEON [facility] [id number] Univers 15:00:00 15:00:00 ESTELAYEMI Torres [facility] 2020-04-21 2020-04-21 Outpatient Pam DE SANTIAGOESTELAYEMI PEMBERTON [facility] [id number] Univers 08:19:17 23:59:00 ESTELAYEMI Torres [facility] 2020-04-01 2020-04-01 Outpatient Pam SUGGSMelissa YEMI [facility] [id number] Univers 09:40:00 09:40:00 ESTELAYEMI PEMBERTON [facility] 2019-12-22 2019-12-22 Outpatient Pam DE SANTIAGOESTELAYEMI P[place]BERTON [facility] [id number] Univers 10:40:00 10:40:00 ESTELAYEMI Torres celia [facility] 2019-12-22 2019-12-22 Office Estela, [facility] [id number] 08:21:33 09:53:26 Visit Yemi Carson 350.1.13.10 [place] 4.2.7.2.686 [place] [id number] [facility] 2019-12-18 2019-12-18 Outpatient YEMI CHAUDHARI [facility] [id number] Univers 09:20:00 09:20:00 YEMI MCKEON [facility] 2019-12-08 2019-12-08 Outpatient YEMI CHAUDHARI [facility] [id number] Univers 11:00:00 11:00:00 YEMI MCKEON [facility] 2019-12-02 2019-12-02 Outpatient Pam DURAN [facility] [id number] Univers 08:00:00 08:00:00 RISHI [facility] 2019-11-18 2019-11-18 Outpatient R [facility] [id number] Univers 14:00:00 14:00:00 [facility] 2017-08-15 2017-08-16 Emergency [facility] [id number] Memoria 13:26:00 05:18:00 r [place] 00 [facility] 2017-08-15 2017-08-16 Emergency nullFlavo [facility] [id number] Memoria 13:26:00 05:18:00 r [place] 00 [facility] 2017-08-15 2017-08-16 Outpatient Shabbir [facility] [id number] 08:26:00 00:18:00 Drew Calderon 2017-07-03 2017-07-04 Outpt Diag nullFlavo [facility] [id number] Memoria 13:59:00 05:59:00 [facility] 2017-07-03 2017-07-04 Outpt Diag nullFlavo [facility] [id number] Memoria 13:59:00 05:59:00 Services r Outpatient 00 l Imaging [place] 2017-07-03 2017-07-03 Outpatient Estela Alysa 29 [id number] 07:59:00 23:59:00 [facility] 00 Results Test Description Test Time Test Comments Results Result Comments Source URINE AND STOOL 2022-03-20 20:47:00 Test Item Value Reference Range Interpretation Comme nts POC UA Color (test code = POC UA Color) Yellow *NA*(03/20/22 3:47 PM ) [facility] [id number] 20:47:00 Test Item Value Reference Range Interpretation Comments POC UA Turbidity (test Clear *NA*(03/20/22 code = POC UA Turbidity) 3:47 PM) [facility] [id number] 20:47:00 Test Item Value Reference Range Interpretation Comments POC UA SG (test code = POC UA SG) 1.025 1 [facility] [id number] 20:47:00 Test Item Value Reference Range Interpretation Comments POC UA pH (test code = POC UA pH) 5.5 1 5.0-8.0 [facility] [id number] 20:47:00 Test Item Value Reference Range Interpretation Comments POC UA Prot (test code = POC Negative mg/dL UA Prot) [facility] [id number] 20:47:00 Test Item Value Reference Range Interpretation Comments POC UA Glu (test code = POC UA Negative mg/dL Glu) [facility] [id number] 20:47:00 Test Item Value Reference Range Interpretation Comments POC UA Ket (test code = POC UA Trace mg/dL Ket) [facility] [id number] 20:47:00 Test Item Value Reference Range Interpretation Comments POC UA Bili (test Negative *NA*(03/20/22 code = POC UA Bili) 3:47 PM) [facility] [id number] 20:47:00 Test Item Value Reference Range Interpretation Comments POC UA Bld (test code Negative *NA*(03/20/22 = POC UA Bld) 3:47 PM) [facility] [id number] 20:47:00 Test Item Value Reference Range Interpretation Comments POC UA Uro (test code = POC UA Uro) 0.2 0.1-1.0 [facility] [id number] 20:47:00 Test Item Value Reference Range Interpretation Comments POC UA Nit (test code Negative *NA*(03/20/22 = POC UA Nit) 3:47 PM) [facility] [id number] 20:47:00 Test Item Value Reference Range Interpretation Comments POC UA LeukEst (test Negative *NA*(03/20/22 code = POC UA LeukEst) 3:47 PM) [facility] [id number] 20:47:00 Test Item Value Reference Range Interpretation Comments POC UA Color (test Yellow *NA*(03/20/22 code = POC UA Color) 3:47 PM) [facility] [id number] 20:47:00 Test Item Value Reference Range Interpretation Comments POC UA Turbidity (test Clear *NA*(03/20/22 code = POC UA Turbidity) 3:47 PM) [facility] [id number] 20:47:00 Test Item Value Reference Range Interpretation Comments POC UA SG (test code = POC UA SG) 1.025 1 [facility] [id number] 20:47:00 Test Item Value Reference Range Interpretation Comments POC UA pH (test code = POC UA pH) 5.5 1 5.0-8.0 [facility] AND [id number] 20:47:00 Test Item Value Reference Range Interpretation Comments POC UA Prot (test code = POC Negative mg/dL UA Prot) [facility] AND [id number] 20:47:00 Test Item Value Reference Range Interpretation Comments POC UA Glu (test code = POC UA Negative mg/dL Glu) [facility] AND [id number] 20:47:00 Test Item Value Reference Range Interpretation Comments POC UA Ket (test code = POC UA Trace mg/dL Ket) [facility] AND [id number] 20:47:00 Test Item Value Reference Range Interpretation Comments POC UA Bili (test Negative *NA*(03/20/22 code = POC UA Bili) 3:47 PM) [facility] [id number] 20:47:00 Test Item Value Reference Range Interpretation Comments POC UA Bld (test code Negative *NA*(03/20/22 = POC UA Bld) 3:47 PM) [facility] [id number] 20:47:00 Test Item Value Reference Range Interpretation Comments POC UA Uro (test code = POC UA Uro) 0.2 0.1-1.0 [facility] [id number] 20:47:00 Test Item Value Reference Range Interpretation Comments POC UA Nit (test code Negative *NA*(03/20/22 = POC UA Nit) 3:47 PM) [facility] [id number] 20:47:00 Test Item Value Reference Range Interpretation Comments POC UA LeukEst (test Negative *NA*(03/20/22 code = POC UA LeukEst) 3:47 PM) [facility] [id number] 14:48:00 Test Item Value Reference Range Interpretation Comments UA Bacteria (test code = None Seen (08/15/17 UA Bacteria) 9:48 AM) [facility] [id number] 14:48:00 Test Item Value Reference Range Interpretation Comments UA RBC (test None Seen See_Comment [Automated mes romana] code = UA RBC) (08/15/17 9:48 The system w hich AM) generated this result transmitted ref erence range: <=2. The reference range was not used to int erpret this result as normal/abnormal . [facility] [id number] 14:48:00 Test Item Value Reference Range Interpretation Comments UA Sq Epi (test code = None Seen (08/15/17 9:48 UA Sq Epi) AM) [facility] [id number] 14:48:00 Test Item Value Reference Range Interpretation Comments UA WBC (test code = UA None Seen (08/15/17 9:48 WBC) AM) [facility] [id number] 14:48:00 Test Item Value Reference Range Interpretation Comments UDS Note (test code = See Note (08/15/17 9:48 UDS Note) AM) [facility] [id number] 14:48:00 Test Item Value Reference Range Interpretation Comments U Phencyc Scr (test Negative *NA*(08/15/17 code = U Phencyc Scr) 9:48 AM) [facility] [id number] 14:48:00 Test Item Value Reference Range Interpretation Comments U Benzodia Scr (test Negative *NA*(08/15/17 code = U Benzodia Scr) 9:48 AM) [facility] [id number] 14:48:00 Test Item Value Reference Range Interpretation Comments U Kathy Scr (test code Negative *NA*(08/15/17 = U Kathy Scr) 9:48 AM) [facility] [id number] 14:48:00 Test Item Value Reference Range Interpretation Comments U Amph Scr (test code Negative *NA*(08/15/17 = U Amph Scr) 9:48 AM) [facility] [id number] 14:48:00 Test Item Value Reference Range Interpretation Comments U Cocaine Scr (test Negative *NA*(08/15/17 code = U Cocaine Scr) 9:48 AM) [facility] [id number] 14:48:00 Test Item Value Reference Range Interpretation Comments U Opiate Scr (test Positive *ABN*(08/15/17 code = U Opiate Scr) 9:48 AM) [facility] [id number] 14:48:00 Test Item Value Reference Range Interpretation Comments U Cannab Scr (test Negative *NA*(08/15/17 code = U Cannab Scr) 9:48 AM) [facility] [id number] 14:48:00 Test Item Value Reference Range Interpretation Comments UA Leuk Est (test Negative (08/15/17 9:48 code = UA Leuk Est) AM) [facility] [id number] 14:48:00 Test Item Value Reference Range Interpretation Comments UA Nitrite (test code Negative (08/15/17 9:48 = UA Nitrite) AM) [facility] [id number] 14:48:00 Test Item Value Reference Range Interpretation Comments UA Protein (test code = UA Negative mg/dL Protein) [facility] [id number] 14:48:00 Test Item Value Reference Range Interpretation Comments UA Urobilinogen (test code = UA 0.2 0.1-1.0 Urobilinogen) [facility] [id number] 14:48:00 Test Item Value Reference Range Interpretation Comments UA Color (test code = Yellow *NA*(08/15/17 UA Color) 9:48 AM) [facility] [id number] 14:48:00 Test Item Value Reference Range Interpretation Comments UA Turbidity (test code = Clear (08/15/17 9:48 UA Turbidity) AM) [facility] [id number] 14:48:00 Test Item Value Reference Range Interpretation Comments UA Ketones (test code = UA Negative mg/dL Ketones) [facility] [id number] 14:48:00 Test Item Value Reference Range Interpretation Comments UA Glucose (test code = UA Negative mg/dL Glucose) [facility] [id number] 14:48:00 Test Item Value Reference Range Interpretation Comments UA pH (test code = UA pH) 7.0 1 5.0-8.0 [facility] [id number] 14:48:00 Test Item Value Reference Range Interpretation Comments UA Spec Grav (test code = UA Spec 1.015 1 Grav) [facility] [id number] 14:48:00 Test Item Value Reference Range Interpretation Comments UA Bili (test code = Negative *NA*(08/15/17 UA Bili) 9:48 AM) [facility] [id number] 14:48:00 Test Item Value Reference Range Interpretation Comments UA Blood (test code = Negative (08/15/17 9:48 UA Blood) AM) [facility] [id number] 14:48:00 Test Item Value Reference Range Interpretation Comments UDS Note (test code = See Note (08/15/17 9:48 UDS Note) AM) [facility] [id number] 14:48:00 Test Item Value Reference Range Interpretation Comments U Phencyc Scr (test Negative *NA*(08/15/17 code = U Phencyc Scr) 9:48 AM) [facility] [id number] 14:48:00 Test Item Value Reference Range Interpretation Comments U Benzodia Scr (test Negative *NA*(08/15/17 code = U Benzodia Scr) 9:48 AM) [facility] [id number] 14:48:00 Test Item Value Reference Range Interpretation Comments U Kathy Scr (test code Negative *NA*(08/15/17 = U Kathy Scr) 9:48 AM) [facility] [id number] 14:48:00 Test Item Value Reference Range Interpretation Comments U Amph Scr (test code Negative *NA*(08/15/17 = U Amph Scr) 9:48 AM) [facility] [id number] 14:48:00 Test Item Value Reference Range Interpretation Comments U Cocaine Scr (test Negative *NA*(08/15/17 code = U Cocaine Scr) 9:48 AM) [facility] [id number] 14:48:00 Test Item Value Reference Range Interpretation Comments U Opiate Scr (test Positive *ABN*(08/15/17 code = U Opiate Scr) 9:48 AM) [facility] [id number] 14:48:00 Test Item Value Reference Range Interpretation Comments U Cannab Scr (test Negative *NA*(08/15/17 code = U Cannab Scr) 9:48 AM) [facility] [id number] 14:48:00 Test Item Value Reference Range Interpretation Comments UA Leuk Est (test Negative (08/15/17 9:48 code = UA Leuk Est) AM) [facility] [id number] 14:48:00 Test Item Value Reference Range Interpretation Comments UA Nitrite (test code Negative (08/15/17 9:48 = UA Nitrite) AM) [facility] [id number] 14:48:00 Test Item Value Reference Range Interpretation Comments UA Protein (test code = UA Negative mg/dL Protein) [facility] [id number] 14:48:00 Test Item Value Reference Range Interpretation Comments UA Urobilinogen (test code = UA 0.2 0.1-1.0 Urobilinogen) [facility] [id number] 14:48:00 Test Item Value Reference Range Interpretation Comments UA Color (test code = Yellow *NA*(08/15/17 UA Color) 9:48 AM) [facility] [id number] 14:48:00 Test Item Value Reference Range Interpretation Comments UA Turbidity (test code = Clear (08/15/17 9:48 UA Turbidity) AM) [facility] [id number] 14:48:00 Test Item Value Reference Range Interpretation Comments UA Ketones (test code = UA Negative mg/dL Ketones) [facility] [id number] 14:48:00 Test Item Value Reference Range Interpretation Comments UA Glucose (test code = UA Negative mg/dL Glucose) [facility] [id number] 14:48:00 Test Item Value Reference Range Interpretation Comments UA pH (test code = UA pH) 7.0 1 5.0-8.0 [facility] [id number] 14:48:00 Test Item Value Reference Range Interpretation Comments UA Spec Grav (test code = UA Spec 1.015 1 Grav) [facility] [id number] 14:48:00 Test Item Value Reference Range Interpretation Comments UA Bili (test code = Negative *NA*(08/15/17 UA Bili) 9:48 AM) [facility] [id number] 14:48:00 Test Item Value Reference Range Interpretation Comments UA Blood (test code = Negative (08/15/17 9:48 UA Blood) AM) [facility] [id number] 14:48:00 Test Item Value Reference Range Interpretation Comments UA Bacteria (test code = None Seen (08/15/17 UA Bacteria) 9:48 AM) [facility] [id number] 14:48:00 Test Item Value Reference Range Interpretation Comments UA RBC (test None Seen See_Comment [Automated mes romana] code = UA RBC) (08/15/17 9:48 The system w hich AM) generated this result transmitted ref erence range: <=2. The reference range was not used to int erpret this result as normal/abnormal . [facility] [id number] 14:48:00 Test Item Value Reference Range Interpretation Comments UA Sq Epi (test code = None Seen (08/15/17 9:48 UA Sq Epi) AM) [facility] [id number] 14:48:00 Test Item Value Reference Range Interpretation Comments UA WBC (test code = UA None Seen (08/15/17 9:48 WBC) AM) [facility] [place] [id number] 13:57:00 Test Item Value Reference Range Interpretation Comments ALT (test code = ALT) 44 See_Comment [Auto mated message] The system which ge nerated this result transmit timothy reference range : <=65. The reference range was not used to interpr et this result as may l/abnormal. [facility] [place] [id number] 13:57:00 Test Item Value Reference Range Interpretation Comments AST (test code = AST) 26 See_Comment [Auto mated message] The system which ge nerated this result transmit timothy reference range : <=37. The reference range was not used to interpr et this result as may l/abnormal. [facility] [place] [id number] 13:57:00 Test Item Value Reference Range Interpretation Comments eGFR (test code = eGFR) 67 [facility]2018-03-29 13:57:00 Test Item Value Reference Range Interpretation Comments Calcium Lvl (test code = Calcium Lvl) 8.6 8.5-10.5 [facility]2018-03-29 13:57:00 Test Item Value Reference Range Interpretation Comments Creatinine Lvl (test code = Creatinine 1.07 0.50-1.40 Lvl) [facility]2018-03-29 13:57:00 Test Item Value Reference Range Interpretation Comments Chloride Lvl (test code = Chloride Lvl) 106 95-109 [facility]2018-03-29 13:57:00 Test Item Value Reference Range Interpretation Comments Potassium Lvl (test code = Potassium 3.8 3.5-5.1 Lvl) [facility]2018-03-29 13:57:00 Test Item Value Reference Range Interpretation Comments CO2 (test code = CO2) 25 24-32 [facility]2018-03-29 13:57:00 Test Item Value Reference Range Interpretation Comments Sodium Lvl (test code = Sodium Lvl) 141 135-145 [facility]2018-03-29 13:57:00 Test Item Value Reference Range Interpretation Comments BUN (test code = BUN) 13 7-22 [facility]2018-03-29 13:57:00 Test Item Value Reference Range Interpretation Comments Glucose Lvl (test code = Glucose Lvl) 109 70-99 [facility]2018-03-29 13:57:00 Test Item Value Reference Range Interpretation Comments Globulin (test code = Globulin) 3.1 2.7-4.2 [facility]2018-03-29 13:57:00 Test Item Value Reference Range Interpretation Comments A/G Ratio (test code = A/G Ratio) 1.2 1 0.7-1.6 [facility]2018-03-29 13:57:00 Test Item Value Reference Range Interpretation Comments B/C Ratio (test code = B/C Ratio) 12 1 6-25 [facility]2018-03-29 13:57:00 Test Item Value Reference Range Interpretation Comments AGAP (test code = AGAP) 13.8 10.0-20.0 [facility]2018-03-29 13:57:00 Test Item Value Reference Range Interpretation Comments Lactic Acid Lvl (test code = Lactic 1.8 0.5-2.2 Acid Lvl) [id number] 13:57:00 Test Item Value Reference Range Interpretation Comments Eosinophils # (test code 0.2 See_Comment [A utomated message] The = Eosinophils #) system whic h generated this result tra nsmitted reference range : <=0.5. The reference r kaykay was not used to int erpret this result as normal/abnormal . [facility] [id number] 13:57:00 Test Item Value Reference Range Interpretation Comments Lymphocytes # (test code = Lymphocytes 1.3 1.0-5.5 #) [facility] [id number] 13:57:00 Test Item Value Reference Range Interpretation Comments Segs-Bands # (test code = Segs-Bands #) 4.3 1.5-8.1 [facility] [id number] 13:57:00 Test Item Value Reference Range Interpretation Comments Monocytes # (test code 0.5 See_Comment [Aut omated message] The = Monocytes #) system which generated this result tra nsmitted reference range : <=0.8. The reference r kaykay was not used to int erpret this result as normal/abnormal . [facility] [id number] 13:57:00 Test Item Value Reference Range Interpretation Comments Basophils # (test code 0.1 See_Comment [Aut omated message] The = Basophils #) system which generated this result tra nsmitted reference range : <=0.2. The reference r kaykay was not used to int erpret this result as normal/abnormal . [facility]MyvpakmPVWERMIKAG3104-05-14 13:57:00 Test Item Value Reference Range Interpretation Comments Monocytes (test code = Monocytes) 8.5 2.0-12.0 [facility] CenterWhiaztyXLJAKKODPT5123-61-23 13:57:00 Test Item Value Reference Range Interpretation Comments Eosinophils (test code = 3.8 See_Comment [A utomated message] The Eosinophils) system which ge nerated this result tra nsmitted reference range : <=4.0. The reference r kaykay was not used to int erpret this result as normal/abnormal . [facility] CenterKlqsirhETMQTLZMMM5262-60-55 13:57:00 Test Item Value Reference Range Interpretation Comments Basophils (test code = 0.8 See_Comment [Aut omated message] The Basophils) system which ge nerated this result tra nsmitted reference range : <=1.0. The reference r kaykay was not used to int erpret this result as normal/abnormal . [facility] CenterUbtnnpqAUXNDRGUXZ6807-31-78 13:57:00 Test Item Value Reference Range Interpretation Comments Segs (test code = Segs) 67.2 45.0-75.0 [facility] CenterKbpmuorILCARLPNWF8361-27-56 13:57:00 Test Item Value Reference Range Interpretation Comments Lymphocytes (test code = Lymphocytes) 19.7 20.0-40.0 [facility] CenterDiywhpxBYQMXHYAXP5576-33-76 13:57:00 Test Item Value Reference Range Interpretation Comments MPV (test code = MPV) 8.6 7.4-10.4 [facility] CenterLlbjgqgUKCVZCPLMY7523-83-77 13:57:00 Test Item Value Reference Range Interpretation Comments Platelet (test code = Platelet) 183 133-450 [facility] CenterBhmhuxqACNCQEYPAN1892-85-03 13:57:00 Test Item Value Reference Range Interpretation Comments RDW (test code = RDW) 13.1 11.5-14.5 [facility] CenterHvcwkumSWYOMKTXJL6513-94-10 13:57:00 Test Item Value Reference Range Interpretation Comments MCV (test code = MCV) 91.7 80.0-94.0 [facility] CenterSyfokzlVGRCWDKIPQ9082-52-40 13:57:00 Test Item Value Reference Range Interpretation Comments MCH (test code = MCH) 31.6 pg 27.0-31.0 [facility] CenterOepydwhCMLQJXYVHQ2682-05-19 13:57:00 Test Item Value Reference Range Interpretation Comments MCHC (test code = MCHC) 34.4 32.0-36.0 [facility] CenterPjffpbbGAFCQTPUDS0443-64-87 13:57:00 Test Item Value Reference Range Interpretation Comments Hct (test code = Hct) 43.2 42.0-54.0 [facility] CenterAarlbubUNUFJVEGAJ1164-51-10 13:57:00 Test Item Value Reference Range Interpretation Comments RBC (test code = RBC) 4.71 4.70-6.10 [facility] CenterVapkplnRIIBCEFLRR2839-39-28 13:57:00 Test Item Value Reference Range Interpretation Comments Hgb (test code = Hgb) 14.9 14.0-18.0 [facility]OzhnjdiSTEMRHUXBX8913-65-89 13:57:00 Test Item Value Reference Range Interpretation Comments WBC (test code = WBC) 6.4 3.7-10.4 [facility] CenterBqohshwRMRUDZIKMN9084-62-21 13:57:00 Test Item Value Reference Range Interpretation Comments PTT (test code = PTT) 25.8 s 22.9-35.8 [facility] [employer] QSIQFZZ6075-49-73 13:57:00 Test Item Value Reference Range Interpretation Comments ABO/Rh (test code = ABO/Rh) O POS [facility] HospitalThfuvfaKPPRERUZVY8964-64-52 13:57:00 Test Item Value Reference Range Interpretation Comments PT (test code = PT) 13.0 s 12.0-14.7 [facility] [id number] 13:57:00 Test Item Value Reference Range Interpretation Comments Antibody Scrn (test Negative (08/15/17 8:57 code = Antibody Scrn) AM) [facility] [place] [id number] 13:57:00 Test Item Value Reference Range Interpretation Comments Alk Phos (test code = Alk Phos) 66 39-136 [facility] [place] [id number] 13:57:00 Test Item Value Reference Range Interpretation Comments Bili Total (test code = Bili Total) 0.7 0.2-1.3 [facility] [place] [id number] 13:57:00 Test Item Value Reference Range Interpretation Comments Total Protein (test code = Total 6.8 6.4-8.4 Protein) [facility] [id number] 13:57:00 Test Item Value Reference Range Interpretation Comments Albumin Lvl (test code = Albumin Lvl) 3.7 3.5-5.0 [facility] [place] [id number] 13:57:00 Test Item Value Reference Range Interpretation Comments ALT (test code = ALT) 44 See_Comment [Auto mated message] The system which ge nerated this result transmit timothy reference range : <=65. The reference range was not used to interpr et this result as may l/abnormal. [facility] [place] [id number] 13:57:00 Test Item Value Reference Range Interpretation Comments AST (test code = AST) 26 See_Comment [Auto mated message] The system which ge nerated this result transmit timothy reference range : <=37. The reference range was not used to interpr et this result as may l/abnormal. [facility]2018-03-29 13:57:00 Test Item Value Reference Range Interpretation Comments eGFR (test code = eGFR) 67 [facility]2018-03-29 13:57:00 Test Item Value Reference Range Interpretation Comments Calcium Lvl (test code = Calcium Lvl) 8.6 8.5-10.5 [facility]2018-03-29 13:57:00 Test Item Value Reference Range Interpretation Comments Creatinine Lvl (test code = Creatinine 1.07 0.50-1.40 Lvl) [facility] CenterTjykqsdLWBNIZEXGR3733-79-36 13:57:00 Test Item Value Reference Range Interpretation Comments INR (test code = INR) 0.98 1 0.85-1.17 [facility]2018-03-29 13:57:00 Test Item Value Reference Range Interpretation Comments Chloride Lvl (test code = Chloride Lvl) 106 95-109 [facility]2018-03-29 13:57:00 Test Item Value Reference Range Interpretation Comments Potassium Lvl (test code = Potassium 3.8 3.5-5.1 Lvl) [facility]2018-03-29 13:57:00 Test Item Value Reference Range Interpretation Comments CO2 (test code = CO2) 25 24-32 [facility]2018-03-29 13:57:00 Test Item Value Reference Range Interpretation Comments Sodium Lvl (test code = Sodium Lvl) 141 135-145 [facility]2018-03-29 13:57:00 Test Item Value Reference Range Interpretation Comments BUN (test code = BUN) 13 7-22 [facility]2018-03-29 13:57:00 Test Item Value Reference Range Interpretation Comments Glucose Lvl (test code = Glucose Lvl) 109 70-99 [facility]2018-03-29 13:57:00 Test Item Value Reference Range Interpretation Comments Globulin (test code = Globulin) 3.1 2.7-4.2 [facility]2018-03-29 13:57:00 Test Item Value Reference Range Interpretation Comments A/G Ratio (test code = A/G Ratio) 1.2 1 0.7-1.6 [facility]2018-03-29 13:57:00 Test Item Value Reference Range Interpretation Comments B/C Ratio (test code = B/C Ratio) 12 1 6-25 [facility]2018-03-29 13:57:00 Test Item Value Reference Range Interpretation Comments AGAP (test code = AGAP) 13.8 10.0-20.0 [facility] HospitalLhwtgajCVRUQGUOYS4051-64-07 13:57:00 Test Item Value Reference Range Interpretation Comments Keppra Lvl (test code = Keppra Lvl) 3.0 [facility]2018-03-29 13:57:00 Test Item Value Reference Range Interpretation Comments Lactic Acid Lvl (test code = Lactic 1.8 0.5-2.2 Acid Lvl) [facility] CenterOvsrfouXPBXLBAYSF1072-89-63 13:57:00 Test Item Value Reference Range Interpretation Comments Eosinophils # (test code 0.2 See_Comment [A utomated message] The = Eosinophils #) system whic h generated this result tra nsmitted reference range : <=0.5. The reference r kaykay was not used to int erpret this result as normal/abnormal . [facility] CenterJaxjqwlDTAAYPQVOO8748-82-22 13:57:00 Test Item Value Reference Range Interpretation Comments Lymphocytes # (test code = Lymphocytes 1.3 1.0-5.5 #) [facility] CenterJqeycheHHNIUZRTHF4111-47-21 13:57:00 Test Item Value Reference Range Interpretation Comments Segs-Bands # (test code = Segs-Bands #) 4.3 1.5-8.1 [facility] CenterMswwoztCFPLMTCRFI3720-77-11 13:57:00 Test Item Value Reference Range Interpretation Comments Monocytes # (test code 0.5 See_Comment [Aut omated message] The = Monocytes #) system which generated this result tra nsmitted reference range : <=0.8. The reference r kaykay was not used to int erpret this result as normal/abnormal . [facility] CenterPqftpuvPBLOFJKYUX0727-41-62 13:57:00 Test Item Value Reference Range Interpretation Comments Basophils # (test code 0.1 See_Comment [Aut omated message] The = Basophils #) system which generated this result tra nsmitted reference range : <=0.2. The reference r kaykay was not used to int erpret this result as normal/abnormal . [facility] CenterFyknrnlKCQZNDNXHY1458-92-63 13:57:00 Test Item Value Reference Range Interpretation Comments Monocytes (test code = Monocytes) 8.5 2.0-12.0 [facility] CenterHaugylfCLIIRGORNQ1998-14-16 13:57:00 Test Item Value Reference Range Interpretation Comments Eosinophils (test code = 3.8 See_Comment [A utomated message] The Eosinophils) system which ge nerated this result tra nsmitted reference range : <=4.0. The reference r kaykay was not used to int erpret this result as normal/abnormal . [facility] CenterPxaaimjJZSBNRGHIB6769-77-31 13:57:00 Test Item Value Reference Range Interpretation Comments Basophils (test code = 0.8 See_Comment [Aut omated message] The Basophils) system which ge nerated this result tra nsmitted reference range : <=1.0. The reference r kaykay was not used to int erpret this result as normal/abnormal . [facility] CenterOoamuxkUSIDHQWPJI6879-57-93 13:57:00 Test Item Value Reference Range Interpretation Comments Segs (test code = Segs) 67.2 45.0-75.0 [facility] CenterMqunixcCFVDFTDOVW5295-57-62 13:57:00 Test Item Value Reference Range Interpretation Comments Lymphocytes (test code = Lymphocytes) 19.7 20.0-40.0 [facility] CenterXzjhynvUJXSKOHIEW6632-24-61 13:57:00 Test Item Value Reference Range Interpretation Comments MPV (test code = MPV) 8.6 7.4-10.4 [facility] CenterJmzcbexZYKOSOFOEU6239-60-26 13:57:00 Test Item Value Reference Range Interpretation Comments Platelet (test code = Platelet) 183 133-450 [facility] CenterJybxlsvAGKCCBBECF5112-06-90 13:57:00 Test Item Value Reference Range Interpretation Comments RDW (test code = RDW) 13.1 11.5-14.5 [facility] CenterQbmqofzSQXIYPYITL4370-65-02 13:57:00 Test Item Value Reference Range Interpretation Comments MCV (test code = MCV) 91.7 80.0-94.0 [facility] CenterKeehzmcLOFOAWYZAK9956-19-63 13:57:00 Test Item Value Reference Range Interpretation Comments MCH (test code = MCH) 31.6 pg 27.0-31.0 [facility] HospitalWfezjunFWLKXTERUL9695-97-04 13:57:00 Test Item Value Reference Range Interpretation Comments MCHC (test code = MCHC) 34.4 32.0-36.0 [facility]TyovqxdSYRUKDIRAB8088-62-81 13:57:00 Test Item Value Reference Range Interpretation Comments Hct (test code = Hct) 43.2 42.0-54.0 [facility] HospitalNjswxnhLBWQAMZOPT6882-74-63 13:57:00 Test Item Value Reference Range Interpretation Comments RBC (test code = RBC) 4.71 4.70-6.10 [facility] HospitalYtuvfztLXITLSVITS5124-69-45 13:57:00 Test Item Value Reference Range Interpretation Comments Hgb (test code = Hgb) 14.9 14.0-18.0 [facility] HospitalVpfsxkrJQOZZKBKSX6837-14-41 13:57:00 Test Item Value Reference Range Interpretation Comments WBC (test code = WBC) 6.4 3.7-10.4 [facility] HospitalYvbhzogKEAPRJIWMX4487-26-38 13:57:00 Test Item Value Reference Range Interpretation Comments PTT (test code = PTT) 25.8 s 22.9-35.8 [facility] HospitalZrcmhszLDKHVLVHWD6738-66-74 13:57:00 Test Item Value Reference Range Interpretation Comments PT (test code = PT) 13.0 s 12.0-14.7 [facility] HospitalQaenazgPJOQZERVDT2999-05-99 13:57:00 Test Item Value Reference Range Interpretation Comments INR (test code = INR) 0.98 1 0.85-1.17 [facility] HospitalQmydqwcFOLXULJBQK8759-60-03 13:57:00 Test Item Value Reference Range Interpretation Comments Keppra Lvl (test code = Keppra Lvl) 3.0 [facility] [id number] 13:57:00 Test Item Value Reference Range Interpretation Comments ABO/Rh (test code = ABO/Rh) O POS [facility] [id number] 13:57:00 Test Item Value Reference Range Interpretation Comments Antibody Scrn (test Negative (08/15/17 8:57 code = Antibody Scrn) AM) [facility] AreaSigasiCHEM [id number] 13:57:00 Test Item Value Reference Range Interpretation Comments Alk Phos (test code = Alk Phos) 66 39-136 [facility] [id number] 13:57:00 Test Item Value Reference Range Interpretation Comments Bili Total (test code = Bili Total) 0.7 0.2-1.3 [facility] [id number] 13:57:00 Test Item Value Reference Range Interpretation Comments Total Protein (test code = Total 6.8 6.4-8.4 Protein) [facility] [id number] 13:57:00 Test Item Value Reference Range Interpretation Comments Albumin Lvl (test code = Albumin Lvl) 3.7 3.5-5.0 [facility] [id number] 13:49:00 Test Item Value Reference Range Interpretation Comments Troponin-I (test code no gt See_Comment [Auto mated message] The = Troponin-I) system which g enerated this result transmit timothy reference range : <=0.40. The reference r kaykay was not used to interpr et this result as may l/abnormal. [facility] CenterVdkxcjiXGWCHBGASX1289-90-89 13:49:00 Test Item Value Reference Range Interpretation Comments ACT (TEG) Rapid (test code = ACT (TEG) 97 s 86-118 Rapid) [facility] LTBSKTL0869-38-50 13:49:00 Test Item Value Reference Range Interpretation Comments Troponin-I (test code no gt See_Comment [Auto mated message] The = Troponin-I) system which g enerated this result transmit timothy reference range : <=0.40. The reference r kaykay was not used to interpr et this result as may l/abnormal. [facility] CenterYcctnlbAGAJXOCUZU2977-68-79 13:49:00 Test Item Value Reference Range Interpretation Comments ACT (TEG) Rapid (test code = ACT (TEG) 97 s 86-118 Rapid) [facility] CenterEolhxbrCYLHXBIEXK8382-50-04 13:49:00 Test Item Value Reference Range Interpretation Comments K-time Rapid (test code = K-time 1.4 min 0.6-2.3 Rapid) [facility] CenterSaxngvcXARBOFXUBC9997-97-07 13:49:00 Test Item Value Reference Range Interpretation Comments Angle Rapid (test code = Angle 74 degrees 64-80 Rapid) [facility] CenterRtzksthAMIKBJORHO0688-23-48 13:49:00 Test Item Value Reference Range Interpretation Comments Split Point Rapid (test code = Split 0.4 min Point Rapid) [facility] CenterIlabkqiQZCFQMXEZT4761-33-57 13:49:00 Test Item Value Reference Range Interpretation Comments K-time Rapid (test code = K-time 1.4 min 0.6-2.3 Rapid) [facility] CenterCttdisvDABNZQRBNV4135-32-25 13:49:00 Test Item Value Reference Range Interpretation Comments R-time Rapid (test code = R-time 0.5 min 0.4-0.7 Rapid) [facility] CenterPtlyfryDBMHGFGZLR5013-24-56 13:49:00 Test Item Value Reference Range Interpretation Comments Estimated % Lysis Rapid 0.6 See_Comment [Au tomated message] The (test code = Estimated syste m which generated % Lysis Rapid) this result t ransmitted reference range : <=7.5. The reference r kaykay was not used to int erpret this result as normal/abnormal . [facility] CenterRlaekhrQSADMRORAW3071-02-05 13:49:00 Test Item Value Reference Range Interpretation Comments G-value Rapid (test code = G-value 7.8 5.0-11.6 Rapid) [facility] CenterAznmjneYEEWHXGJER8571-80-70 13:49:00 Test Item Value Reference Range Interpretation Comments Max Amplitude Rapid (test code = Max 61 mm 52-71 Amplitude Rapid) [place] [id number] 13:49:00 Test Item Value Reference Range Interpretation Comments Etoh (%) (test code = Etoh (%)) <0.003 % [place] [id number] 13:49:00 Test Item Value Reference Range Interpretation Comments Ethanol Lvl (test code = Ethanol <3.0 mg/dL Lvl) [facility] CenterOkqjmlcSGHNDDHWJX4518-44-39 13:49:00 Test Item Value Reference Range Interpretation Comments Angle Rapid (test code = Angle 74 degrees 64-80 Rapid) [facility] CenterZgazoyfPULKEWEEDS3015-75-80 13:49:00 Test Item Value Reference Range Interpretation Comments Split Point Rapid (test code = Split 0.4 min Point Rapid) [facility] CenterZhuutdpTXJMDZGSCP8863-28-76 13:49:00 Test Item Value Reference Range Interpretation Comments R-time Rapid (test code = R-time 0.5 min 0.4-0.7 Rapid) [facility] CenterLhvyufdIUBMOVRCFI3934-90-23 13:49:00 Test Item Value Reference Range Interpretation Comments Estimated % Lysis Rapid 0.6 See_Comment [Au tomated message] The (test code = Estimated syste m which generated % Lysis Rapid) this result t ransmitted reference range : <=7.5. The reference r kaykay was not used to int erpret this result as normal/abnormal . [facility] CenterTkvjmfoSXTJNTFMWI6439-18-12 13:49:00 Test Item Value Reference Range Interpretation Comments G-value Rapid (test code = G-value 7.8 5.0-11.6 Rapid) [facility] CenterHoakgoqKCWNJFAADI1717-86-30 13:49:00 Test Item Value Reference Range Interpretation Comments Max Amplitude Rapid (test code = Max 61 mm 52-71 Amplitude Rapid) [place] [id number] 13:49:00 Test Item Value Reference Range Interpretation Comments Etoh (%) (test code = Etoh (%)) <0.003 % [place] [id number] 13:49:00 Test Item Value Reference Range Interpretation Comments Ethanol Lvl (test code = Ethanol <3.0 mg/dL Lvl) [facility]
[2022-10-23] MEDS ORDERED: POTASSIUM 25 MEQ EFFERV TAB ONE (15:14)
[2022-10-23 15:37] LABS: Specific Gravity 1.015 (1.005-1.030); Urine Bilirubin NEGATIVE (Negative); Urine Blood Negative (Negative); Urine Clarity Clear (Clear); Urine Color Yellow (Yellow); Urine Glucose NEGATIVE (Negative); Urine Protein NEGATIVE (Negative); Urine Urobilinogen Normal (Normal); Urine pH 6.5 (5.0-7.0)
--- NOTE | 2022-10-23 18:36 | RAD REPORT ---
EXAM DESCRIPTION: CT - Head Brain Wo Cont - 10/23/2022 6:27 pm CLINICAL HISTORY: Dizziness;Weakness Headache, drowsiness COMPARISON: CT-STROKE BRAIN W/O CONTRAST dated 07/13/2013; HEAD BRAIN W O CONTRAST dated 07/12/2013 TECHNIQUE: All CT scans are performed using dose optimization technique as appropriate and may inclu de automated exposure control or mA/KV adjustment according to patient size. 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 The paranasal sinuses and mastoids are clear. The calvarium is intact. IMPRESSION: No acute intracranial abnormality.
[2022-10-23] MEDS ORDERED: NA CHLORIDE 0.9% 1,000 ML IV SCH (19:45)
[2022-10-23] MEDS ORDERED: ACETAMINOPHEN 500 MG TAB PO PRN (19:45)
[2022-10-23] MEDS ORDERED: ONDANSETRON 4 MG/2 ML VIAL IV PRN (19:45)
[2022-10-23] MEDS: FAMOTIDINE 20 MG/2 ML VIAL IV SCH (20:52)
[2022-10-23] MEDS ORDERED: CEFTRIAXONE 1,000 MG in NA CHLORIDE 0.9% 50 ML IVPB SCH (21:00)
--- NOTE | 2022-10-23 21:08 | P.HP ---
Patient History Date of Service: 10/23/22 Reason for admission: COULD NOT GET UP FROM BED History of Present Illness: BALTAZAR ESQUIVEL IS A PATIENT WITH PARKINSON'S AND HE WAS WEAK AND COULD NOT GET OUT OF BED. HE WAS BROUGHT TO ER AND SEEN BY DR. NEVILLE. LACTATE IS MILD HIGH AND THERE ARE NO OTHER SIGNS OF SEPSIS OR ETIOLOGY. Allergies No Known Allergies Allergy (Verified 10/23/22 20:25) Home Medications: Atorvastatin Calcium [Lipitor] 40 mg PO BEDTIME 07/20/11 Omeprazole Magnesium [Prilosec Otc] 20 mg PO DAILY 07/20/11 Valsartan [Diovan] 160 mg PO DAILY 07/20/11 Clopidogrel Bisulfate [Plavix*] 75 mg PO DAILY #30 tablet 07/14/13 Losartan Potassium [Cozaar*] 50 mg PO DAILY 07/14/13 Carbidopa/Levodopa 25-250 [Sinemet 25-250*] 25 - 250 mg PO TID 11/22/21 Cephalexin [Keflex*] 500 mg PO Q6HR 11/22/21 Doxycycline Hyclate 100 mg PO BID 11/22/21 Levetiracetam [Keppra] 500 mg PO BID 11/22/21 Venlafaxine HCl [Venlafaxine HCl ER] 75 mg PO DAILY 11/22/21 - Past Medical/Surgical History Diabetic: No -: htn -: seizures -: Parkinsons -: depression -: anxiety -: back fx -: concussions -: shoulder sx -: appendectomy -: foot sx - Social History Alcohol use: Yes CD- Drugs: No Caffeine use: Yes Review of Systems 10-point ROS is otherwise unremarkable General: Weakness, As per HPI Physical Examination - Physical Exam General: Acute distress, Mild distress HEENT: Atraumatic, PERRLA, Mucous membr. moist/pink, EOMI, Sclerae nonicteric Neck: Supple, 2+ carotid pulse no bruit, No LAD, Without JVD or thyroid abnormality Respiratory: Clear to auscultation bilaterally, Normal air movement Cardiovascular: Regular rate/rhythm, Normal S1 S2 Gastrointestinal: Normal bowel sounds, No tenderness Musculoskeletal: No tenderness Integumentary: No rashes Neurological: Normal gait, Normal speech, Normal tone, Normal affect, Abnormal strength (R LOWER LIMB FLEXION AT HIP IS WEAK AT 3/5. PLANTER IS EXTENSOR.) Lymphatics: No axilla or inguinal lymphadenopathy - Studies Laboratory Data (last 24 hrs) 10/23/22 11:50: PT 11.8, INR 1.07 10/23/22 11:50: WBC 9.10, Hgb 15.0, Hct 43.9, Plt Count 213 10/23/22 11:50: Sodium 140, Potassium 3.2 L, BUN 18, Creatinine 1.39 H, Glucose 122 H, Magnesium 2.2, Total Bilirubin 1.0, AST 19, ALT 12 L, Alkaline Phosphatase 82, Lipase 35 Microbiology Data (last 24 hrs): 10/23/22 11:50 Nasopharnyx Influenza Type A Antigen Screen - Final 10/23/22 11:50 Nasopharnyx Influenza Type B Antigen Screen - Final Assessment and Plan - Problems (Diagnosis) (1) Monoparesis of right lower extremity Current Visit: Yes Status: Acute Plan: CT BRAIN IS NEGATIVE. WILL DO MRI OF BRAIN AND L SPINE IN AM THIS HOSPITAL DOES NOT HAVE MRI SERVICES AFTER HOURS. HE IS STABLE. CONSULT PT. (2) Lumbar radicular pain Current Visit: Yes Status: Acute Plan: ABOVE. (3) Lactic acid acidosis Current Visit: Yes Status: Acute Plan: IT IS UNCLEAR WHY HE HAS LACTIC ACIDOSIS. THERE IS NO SIGN OF INFECTION OR SEPSIS. THERE IS NO REASON FOR ANY MUSCLE DAMAGE STILL I WILL CHECK CPK AND ALDOLASE. (4) Parkinson disease Current Visit: No Status: Chronic Plan: REFER TO PT AND REHAB. - Advance Directives Does patient have a Living Will: No Does patient have a Durable POA for Healthcare: Yes
[2022-10-23 21:16] VITALS: BMI 34.6
[2022-10-23] MEDS: NA CHLORIDE 0.9% 1,000 ML IV SCH (22:00)
[2022-10-24 04:06] LABS: Absolute Lymphocytes (CBC) 1.4 K/uL (0.7-4.9); Lymphocytes % 14.9 % (15.3-44.8); MCV 92.3 fL (80-100); MPV 8.6 fL (7.6-11.3); RBC Red Blood Cell Count 4.23 M/uL (4.33-5.43)
[2022-10-24 04:24] LABS: Potassium 2.9 mEq/L (3.5-5.1)
[2022-10-24] MEDS ORDERED: POTASSIUM 25 MEQ EFFERV TAB PO ONE (06:30)
[2022-10-24] MEDS ORDERED: KCL 20 MEQ/100 mL IVPB 20 MEQ/100 ML BAG IV SCH (07:00)
--- NOTE | 2022-10-24 07:16 | EKG ---
Test Date: 2022-10-23 Test Time: 15:18:28 Bark Scaler: EL MEASUREMENT RESULTS: Intervals: Rate: 73 MD: 216 QRSD: 80 QT: 414 QTc: 456 [place]: P: 16 MD: 216 QRS: 32 T: 23 INTERPRETIVE STATEMENTS: Sinus rhythm with 1st degree AV block with occasional premature ventricular complexes Low voltage QRS Borderline ECG Compared to ECG 11/22/2021 14:33:05 Ventricular premature complex(es) now present First degree AV block now present Low QRS voltage now present Electronically Signed On 10-24-22 07:14:02 CDT by Milind Ramon
[2022-10-24 08:56] LABS: C-Reactive Protein 43.7 mg/L (<3.00); Thyroid Stimulating Hormone 1.55 uIU/mL (0.358-3.740)
[2022-10-24] MEDS: SPIRONOLACTONE 25 MG TABLET PO SCH (09:44)
[2022-10-24] MEDS: FAMOTIDINE 20 MG/2 ML VIAL IV SCH ×2 (09:44→21:37)
--- NOTE | 2022-10-24 11:56 | RAD REPORT ---
EXAM DESCRIPTION: MRI - Brain Wo Cont - 10/24/2022 11:44 am CLINICAL HISTORY: Generalized Weakness Headache, drowsiness, CVA symptomology COMPARISON: Head Brain Wo Cont dated 10/23/2022 TECHNIQUE: Multi-sequence, multiplanar MR imaging of the brain was performed without contrast. FINDINGS: No intracranial hemorrhage, hydrocephalus or extra-axial fluid collections.Moderate conflu ent T2/FLAIR hyperintensity in the periventricular and deep white matter is present compatible with c hronic microvascular ischemic changes. No edema or shift of midline structures. No findings to suspec t brain mass.Gliosis is noted right occipital pole compatible with old infarction. DWI is negative fo r acute CVA. Midline structures are normally formed. Mastoid air cells and paranasal sinuses are clear. IMPRESSION: Negative for acute CVA or other acute intracranial process.
--- NOTE | 2022-10-24 12:25 | RAD REPORT ---
EXAM DESCRIPTION: US - CP - 10/24/2022 12:07 pm CLINICAL HISTORY: Generalized Weakness Headache, drowsiness COMPARISON: CAROTID ARTERY BILATERAL dated 07/14/2013 TECHNIQUE: Real-time sonographic evaluation of both carotid systems was performed. Doppler interroga tion was performed with waveform tracing bilaterally. FINDINGS: Normal high resistance waveforms are noted in both external carotid arteries. The common c arotid arteries and internal carotid arteries show normal low resistance waveforms. Mild predominately hard plaque is seen in both carotid bulbs. Peak systolic and end diastolic velocit y values and the ICA/CCA ratios are in the non-hemodynamically significant range. Antegrade flow seen in both vertebral arteries. IMPRESSION: Mild hard plaque is seen in both carotid bulbs. No evidence of a hemodynamically significant stenosis.
--- NOTE | 2022-10-24 12:59 | P.PN ---
Subjective Date of Service: 10/24/22 Chief Complaint: COULD NOT GET UP FROM BED Subjective: Improving HE HAS NO PAIN, NO FEVER, HE IS STRONGER THAN YESTERDAY. Physical Examination - Vital Signs Temperature: 98.2 F Blood Pressure: 159/81 Pulse: 74 Respirations: 18 Pulse Ox (%): 98 - Physical Exam General: Alert, In no apparent distress HEENT: Atraumatic, PERRLA, EOMI Neck: Supple, JVD not distended Respiratory: Clear to auscultation bilaterally, Normal air movement Cardiovascular: Regular rate/rhythm, Normal S1 S2 Gastrointestinal: Normal bowel sounds, No tenderness Musculoskeletal: No tenderness Integumentary: No rashes Neurological: Normal speech, Abnormal strength (ABLE TO LIFT R LEG ABOVE BED WTIH MILD RESISTANCE.) Lymphatics: No axilla or inguinal lymphadenopathy - Studies Microbiology Data (last 24 hrs): 10/23/22 11:50 Nasopharnyx Influenza Type A Antigen Screen - Final 10/23/22 11:50 Nasopharnyx Influenza Type B Antigen Screen - Final Medications List Reviewed: Yes Assessment And Plan - Current Problems (Diagnosis) (1) Monoparesis of right lower extremity Current Visit: Yes Status: Acute Plan: CT BRAIN IS NEGATIVE. WILL DO MRI OF BRAIN AND L SPINE IN AM THIS HOSPITAL DOES NOT HAVE MRI SERVICES AFTER HOURS. HE IS STABLE. CONSULT PT. MRI BRAIN NEG. (2) Lumbar radicular pain Current Visit: Yes Status: Acute Plan: ABOVE. (3) Lactic acid acidosis Current Visit: Yes Status: Acute Plan: IT IS UNCLEAR WHY HE HAS LACTIC ACIDOSIS. THERE IS NO SIGN OF INFECTION OR SEPSIS. THERE IS NO REASON FOR ANY MUSCLE DAMAGE STILL I WILL CHECK CPK AND ALDOLASE. (4) Parkinson disease Current Visit: No Status: Chronic Plan: REFER TO PT AND REHAB. (5) Weakness Current Visit: Yes Status: Acute Plan: PROXIMAL MUSLCE WEAKNESS CAN BE FROM PMR. CRP IS HGIH. NO SIGNS OF INFECTION PREDNISONE TRIAL ALSO TESTO IS LOW. WILL DO OP TRIAL.
[2022-10-24] MEDS: NA CHLORIDE 0.9% 1,000 ML IV SCH (14:34)
[2022-10-24] MEDS: dexAMETHasone 4 MG/ML VIAL IV SCH (17:53)
[2022-10-25] MEDS: dexAMETHasone 4 MG/ML VIAL IV SCH ×2 (00:08→05:26)
[2022-10-25 07:58] LABS: Potassium 4.1 mEq/L (3.5-5.1)
[2022-10-25 10:20] VITALS: O2SAT 94
[2022-10-25] MEDS: SPIRONOLACTONE 25 MG TABLET PO SCH (10:35)
[2022-10-25] MEDS: FAMOTIDINE 20 MG/2 ML VIAL IV SCH (10:36)
[2022-10-25 11:00] VITALS: BP 174/81; TEMP 96.9
--- NOTE | 2022-10-25 21:26 | P.DS ---
Admission Date: 10/25/22 Discharge Date: 10/25/22 Disposition: DC HOME/HOME HEALTH CARE Discharge Condition: FAIR Reason for Admission: COULD NOT GET UP FROM BED - Problems (1) Monoparesis of right lower extremity Status: Acute (2) Lumbar radicular pain Status: Acute (3) Lactic acid acidosis Status: Acute (4) Parkinson disease Status: Chronic (5) Weakness Status: Acute Brief History of Present Illness: BALTAZAR ESQUIVEL IS A PATIENT WITH PARKINSON'S AND HE WAS WEAK AND COULD NOT GET OUT OF BED. HE WAS BROUGHT TO ER AND SEEN BY DR. NEVILLE. LACTATE IS MILD HIGH AND THERE ARE NO OTHER SIGNS OF SEPSIS OR ETIOLOGY. Hospital Course: BALTAZAR HAD GEN WEAKNESS AND COULD NOT WALK ANY LONGER. HIS MRI ODALYS IS NEG. MRI LSPIN IN PAST SHOWED DJD BUT NOTHING SURGICAL. I SUSPECT HE HAS PMR SED RATE IS HIGH ADN HE HAS PROXIMAL WEAKNESS WITH FAITGUE. WITH ONE DAY IV STEROIDS HE SIGNIFICANTLY IMPROVED. HE WILL GO HOME WITH STEROIDS ORALLY AND I WILL SEE HIM IN OFFICE. Vital Signs/Physical Exam: Temp Pulse Resp BP Pulse Ox 96.9 F 66 14 174/81 H 96 10/25/22 08:00 10/25/22 08:00 10/25/22 08:00 10/25/22 08:00 10/25/22 08:00 Laboratory Data at Discharge: WBC 9.40 thou/uL (4.3-10.9) 10/24/22 03:42 Hgb 13.3 g/dL (13.6-17.9) L D 10/24/22 03:42 Hct 39.0 % (39.6-49.0) L 10/24/22 03:42 Plt Count 196 thou/uL (152-406) 10/24/22 03:42 PT 11.8 SECONDS (9.5-12.5) 10/23/22 11:50 INR 1.07 10/23/22 11:50 Sodium 141 mEq/L (136-145) 10/25/22 07:25 Potassium 4.1 mEq/L (3.5-5.1) 10/25/22 07:25 BUN 14 mg/dL (7-18) 10/25/22 07:25 Creatinine 1.02 mg/dL (0.70-1.30) 10/25/22 07:25 Glucose 134 mg/dL (74-106) H 10/25/22 07:25 Magnesium 2.2 mg/dL (1.6-2.4) 10/23/22 11:50 Total Bilirubin 1.0 mg/dL (0.2-1.0) 10/23/22 11:50 AST 19 U/L (15-37) 10/23/22 11:50 ALT 12 U/L (16-61) L 10/23/22 11:50 Alkaline Phosphatase 82 U/L (45-117) 10/23/22 11:50 Lipase 35 U/L (13-75) 10/23/22 11:50 Home Medications: Atorvastatin Calcium [Lipitor] 40 mg PO BEDTIME 07/20/11 Omeprazole Magnesium [Prilosec Otc] 20 mg PO DAILY 07/20/11 Clopidogrel Bisulfate [Plavix*] 75 mg PO DAILY #30 tablet 07/14/13 Carbidopa/Levodopa 25-250 [Sinemet 25-250*] 25 - 250 mg PO TID 11/22/21 Levetiracetam [Keppra] 500 mg PO BID 11/22/21 Venlafaxine HCl [Venlafaxine HCl ER] 75 mg PO DAILY 11/22/21 Spironolactone [Aldactone*] 25 mg PO DAILY #90 tab 10/25/22 predniSONE [Deltasone] 20 mg PO DAILY #30 tab 10/25/22 New Medications: Spironolactone [Aldactone*] 25 mg PO DAILY #90 tab predniSONE [Deltasone] 20 mg PO DAILY #30 tab Followup: Keegan Fernandez MD [Primary Care Provider] - (Call to schedule appointment.)
== END 2022-10-25 10:50 | disposition home or self-care (01) | DRG 546 ==
LOC: ER 11:19 → ERHOLD 12:55 → 2ND 19:21 → OBSVTOIN 10-25 07:40
PROVIDERS: ADMIT Internal Medicine; ATTEND Internal Medicine
DX: M35.3 Polymyalgia rheumatica (principal); E87.21 Acute metabolic acidosis; R53.1 Weakness; G83.11 Monoplegia of lower limb affecting right dominant side; G20 Parkinson's disease; M54.16 Radiculopathy, lumbar region; R53.83 Other fatigue; E87.6 Hypokalemia; I10 Essential (primary) hypertension; W18.30XA Fall on same level, unspecified, initial encounter; Y92.129 Unspecified place in nursing home as the place of occurrence of the external cause; F32.A Depression, unspecified; F41.9 Anxiety disorder, unspecified; R56.9 Unspecified convulsions; Z79.02 Long term (current) use of antithrombotics/antiplatelets; Z79.899 Other long term (current) drug therapy; Z20.822 Contact with and (suspected) exposure to COVID-19
CPT/HCPCS: 36415; 70450; 70551; 71045; 74176; 76377; 80048; 80076; 81003; 82550; 82607; 82947; 83605; 83690; 83735; 83880; 84132; 84403; 84443; 84484; 85025; 85610; 86140; 87040; 87804; 87811; 93005; 93880; 94760; 96361; 96374; 96375; 97116; 97161; 97530; 99285; G0378; J0696; J1100; J1720; J3480; J7030